=== PATIENT | male | born 1950 | race Caucasian/White ===

== ENCOUNTER 2016-11-30 16:23 | Outpatient (CLI) | payer MEDICARE | END 2016-11-30 16:24 | disposition short-term general hospital (02) | LOC: EMS 16:23 | PROVIDERS: ATTEND Surgery | DX: R13.10 Dysphagia, unspecified (principal); R47.9 Unspecified speech disturbances; R55 Syncope and collapse; R53.1 Weakness | CPT/HCPCS: A0425; A0427 ==

== ENCOUNTER 2019-05-14 13:00 | Outpatient (CLI) | payer MEDICARE | END 2019-05-14 13:01 | disposition short-term general hospital (02) | LOC: EMS 13:00 | PROVIDERS: ATTEND Surgery | DX: R55 Syncope and collapse (principal); R51 Headache; R29.810 Facial weakness | CPT/HCPCS: A0425; A0429 ==

== ENCOUNTER 2020-01-01 10:19 | Inpatient (IN) | payer MEDICARE, OTHER ==
[2020-01-01] MEDS ORDERED: MORPHINE 2 MG/ML CARPUJECT IVP STA ×2 (10:41→15:11)
[2020-01-01 10:45] LABS: BASOPHILS % (AUTO) 0.4 %; EOSINOPHILS % (AUTO) 0.1 %; HGB - HEMOGLOBIN 14.7 g/dL (14.0-18.0); LYMPHOCYTES # (AUTO) 0.6 10^3/uL (1.5-3.5); MEAN CORPUSCULAR HEMOGLOBIN 32.5 pg (27.0-31.0); MEAN CORPUSCULAR HGB CONC 33.9 g/dL (32.0-36.0); MEAN CORPUSCULAR VOLUME 95.6 fL (80.0-94.0); MEAN PLATELET VOLUME 10.1 fL (7.4-11.4); MONOCYTES # (AUTO) 0.3 10^3/uL (0.0-1.0); MONOCYTES % (AUTO) 3.4 %; NEUTROPHILS # (AUTO) 8.5 10^3/uL (1.5-6.6); NEUTROPHILS % (AUTO) 89.9 %; PLT - PLATELET COUNT 175 10^3/uL (130-450); RED BLOOD COUNT 4.53 10^6/uL (4.70-6.10); RED CELL DISTRIBUTION WIDTH 12.6 % (12.0-15.0); WHITE BLOOD COUNT 9.5 x10^3/uL (4.8-10.8)
[2020-01-01 10:50] LABS: GLUCOSE, URINE (UA) NEGATIVE (NEGATIVE); LEUKOCYTE ESTERASE, URINE NEGATIVE (NEGATIVE)
[2020-01-01 10:51] LABS: BILIRUBIN,URINE NEGATIVE (NEGATIVE); CLARITY,URINE CLEAR (CLEAR); ICTOTEST,URINE NEGATIVE
[2020-01-01 10:56] LABS: BACTERIA,URINE Few /HPF (None Seen); MUCUS,URINE Moderate Strands; RBC,URINE 0-5 /HPF (0-5); SQUAMOUS EPITHELIAL CELL,UR FEW Squamous (<= Few)
[2020-01-01 10:59] LABS: ALBUMIN 4.1 g/dL (3.2-5.5); ALBUMIN/GLOBULIN RATIO 1.2 (1.0-2.2); BILIRUBIN,TOTAL 1.9 mg/dL (0.2-1.0); CALCIUM 8.9 mg/dL (8.5-10.3); CREATININE 1.1 mg/dL (0.6-1.2); TOTAL PROTEIN 7.4 g/dL (6.7-8.2)
--- NOTE | 2020-01-01 11:01 | ED Physician Documentation ---
PD HPI ABD PAIN - Stated complaint Stated Complaint: LOWER ABD PX - Chief complaint Chief Complaint: Abd Pain - History obtained from History obtained from: Patient, Family - History of Present Illness Timing - onset: How many days ago (3) Timing - duration: Days (3) Timing - details: Gradual onset Pain level max: 8 Pain level now: 6 Quality: Cramping, Aching, Pain Location: LLQ Radiation: Other. No: Chest, , Lower back, Left flank, Left shoulder, Right flank, Right shoulder, Upper back Improved by: No: Vomiting, BM, Position Worsened by: Moving, Palpation. No: Eating Associated symptoms: No: Fever, Nausea, Vomiting, Hematemesis, Diarrhea, Constipation, Melena, Hematochezia, Dysuria - Additional information Additional information: 69-year-old male presents to the emergency department with left lower quadrant abdominal pain for the past 3 days. Gradually worsening. Nothing makes it better. Worse with movement and palpation. Was seen at the walk-in clinic this morning and sent here for further evaluation. The pain is nonradiating. No vomiting, occasional nausea. No constipation or diarrhea. Has never had similar symptoms. No history of abdominal surgeries in the past. Review of Systems Ten Systems: 10 systems reviewed and negative Constitutional: denies: Fever, Chills Ears: denies: Ear pain Nose: denies: Rhinorrhea / runny nose, Congestion Throat: denies: Sore throat Cardiac: denies: Chest pain / pressure, Palpitations Respiratory: denies: Dyspnea, Cough GI: reports: Nausea. denies: Diarrhea, Hematemesis, Bloody / black stool : denies: Dysuria PD PAST MEDICAL HISTORY - Past Medical History Past Medical History: Yes Endocrine/Autoimmune: HyPOthyroidism - Past Surgical History Past Surgical History: Yes Other past surgical history: Right eye surgery for glacoma Oct 22 2019 @ [place]. Bilateral eye surgery for cornea scratches 2014 & 2016. Left carotid endarterectomy @ [facility] Apr 2019 - Allergies Allergies/Adverse Reactions: Allergies Allergy/AdvReac Type Severity Reaction Status Date / Time Statins Allergy Unknown Uncoded 01/01/20 10:43 - Living Situation Living Situation: reports: With family Living Arrangement: reports: At home - Social History Does the pt have substance abuse?: No - Family History Family history: reports: Non contributory PD ED PE NORMAL - Vitals Vital signs reviewed: Yes - General General: Alert and oriented X 3, No acute distress, Well developed/nourished - HEENT HEENT: PERRL, Moist mucous membranes - Neck Neck: Supple, no meningeal sign - Cardiac Cardiac: RRR, Strong equal pulses - Respiratory Respiratory: No respiratory distress, Clear bilaterally - Abdomen Abdomen: Soft, Non distended, Other (Tender palpation suprapubic and left lower quadrant. Positive guarding, no rebound.) - Back Back: No CVA TTP, No spinal TTP - Derm Derm: Warm and dry - Extremities Extremities: No edema - Neuro Neuro: Alert and oriented X 3 - Psych Psych: Normal mood, Normal affect Results - Vitals Vitals: Vital Signs - 24 hr 01/01/20 01/01/20 01/01/20 10:28 10:46 12:30 Temperature 37.3 C Heart Rate 100 92 90 Respiratory 11 L 19 22 Rate Blood Pressure 154/78 H 157/77 H 127/73 O2 Saturation 96 93 95 01/01/20 14:00 Temperature Heart Rate 99 Respiratory 17 Rate Blood Pressure 125/76 O2 Saturation 96 Oxygen O2 Source Room air - Labs Labs: Laboratory Tests 01/01/20 01/01/20 01/01/20 10:27 10:37 10:37 WBC 9.5 RBC 4.53 L Hgb 14.7 Hct 43.3 MCV 95.6 H MCH 32.5 H MCHC 33.9 RDW 12.6 Plt Count 175 MPV 10.1 Neut # (Auto) 8.5 H Lymph # (Auto) 0.6 L Nash # (Auto) 0.3 Eos # (Auto) 0.0 Baso # (Auto) 0.0 Absolute Nucleated RBC 0.00 Nucleated RBC % 0.0 Sodium 134 L Potassium 3.6 Chloride 98 L Carbon Dioxide 23 Anion Gap 13.0 BUN 15 Creatinine 1.1 Estimated GFR (MDRD) 66 L Glucose 129 H Calcium 8.9 Total Bilirubin 1.9 H AST 27 ALT 28 Alkaline Phosphatase 58 Total Protein 7.4 Albumin 4.1 Globulin 3.3 Albumin/Globulin Ratio 1.2 Lipase 27 Urine Color ORANGE Urine Clarity CLEAR Urine pH Ur Specific [place] Urine Protein Urine Glucose (UA) NEGATIVE Urine Ketones Urine Occult Blood Urine Nitrite Urine Bilirubin NEGATIVE Urine Urobilinogen Ur Leukocyte Esterase NEGATIVE Urine RBC 0-5 Urine WBC 4-5 Ur Squamous Epith Cells FEW Squamous Urine Bacteria Few Urine Mucus Moderate Strands Ur Microscopic Review INDICATED Urine Culture Comments NOT INDICATED - Rads (name of study) CT abd/pelvis Radiology: Prelim report reviewed, EMP read contemporaneously PD MEDICAL DECISION MAKING - ED course Complexity details: reviewed results, re-evaluated patient, considered differential, d/w patient, d/w family, d/w operational risk consultant ED course: 69-year-old male with a small bowel perforation. No history of inflammatory bowel disease. States had a normal colonoscopy 1 year ago in [place]. Given IV antibiotics, Zosyn and Flagyl. Discussed the case with Dr. Bailey, general surgery who will admit the patient for further care. Patient is well-appearing, nontoxic. Afebrile. Does not appear septic. This document was made in part using voice recognition software. While efforts are made to proofread this document, sound alike and grammatical errors may occur. Findings suggestive of small bowel perforation with suspected underlying inflammatory bowel disorder such as Crohn's disease. Free air in the left central mesentery with adjacent inflammatory changes tracking to a short segment of edematous and thickened small bowel. Several scattered segments of bowel which demonstrate wall thickening in close approximation of bowel loops with adjacent inflammatory changes, suggesting either tethering or perhaps fistula formation. Departure - Departure Disposition: 66 [facility] DC/Xfer Clinical Impression: Perforated small intestine Condition: Stable
[2020-01-01] MEDS ORDERED: IOVERSOL 320 100 ML VIAL IVP ONE ×2 (11:17→17:04)
--- NOTE | 2020-01-01 12:04 | CT Report ---
PROCEDURE: Abdomen/Pelvis W INDICATIONS: LLQ abd pain CONTRAST: IV CONTRAST: Optiray 320 ml: 100 PO CONTRAST: *NO PO CONTRAST TECHNIQUE: After the administration of intravenous contrast, 5 mm thick sections acquired from the diaphragms to the symphysis. 5 mm thick coronal and sagittal reformats were acquired. For radiation dose reducti on, the following was used: automated exposure control, adjustment of mA and/or kV according to kishor ent size. COMPARISON: None. FINDINGS: Image quality: Excellent. ABDOMEN: Lung bases: There is mild bibasilar posterior dependent atelectasis. No pleural or pericardial effusi on. Solid organs: Liver and spleen are normal in size and enhancement. Gallbladder there is normal. Bi liary system is non dilated. Pancreas enhances normally. No adrenal nodules. Kidneys demonstrate n ormal size and enhancement, without hydronephrosis. Peritoneum and bowel: These images demonstrate free air in the left central mesentery (series 3 imag es [id number]) which appears to emanate from a loop of small bowel immediately anterior to the abdominal a brian (series 3 image 62). There are inflammatory changes involving the regional mesentery, specifical ly fat stranding with engorged vasa recta. There are scattered areas of small bowel wall thickening w ith adjacent inflammatory change and free fluid. Numerous longitudinally distended loops of small bow el appear closely approximated with suggestion of tethering or perhaps tiny fistulae. Inflammatory ch anges are quite pronounced at the terminal ileum and adjacent cecum with cecal enlargement, fluid dis tention, and mucosal hyperenhancement. Nodes and vessels: Aortic atherosclerosis without aneurysm. Atherosclerotic calcifications extend int o the major visceral branches and into the iliac arteries. IVC is unremarkable. No peripheral enlarge d retroperitoneal lymph node Miscellaneous: No ventral hernia. PELVIS: Genitourinary: Free fluid in the pelvis related to the bowel pathology. The prostate is unremarkable. The urinary bladder is within normal limits. Miscellaneous: No threshold enlarged pelvic or inguinal lymph nodes. No inguinal hernia. Bones: No suspicious bony lesions. No vertebral body compression fractures. IMPRESSION: Findings suggestive of small bowel perforation with suspected underlying inflammatory bowel disorder such as Crohn's disease. Free air in the left central mesentery with adjacent inflammatory changes tracking to a short segment of edematous and thickened small bowel. Several scattered segments of bowel which demonstrate wall thickening in close approximation of bowel loops with adjacent inflammatory changes, suggesting either tethering or perhaps fistula formation. Reviewed by: Gaston Meek MD on 01/01/2020 12:01 PM PDT Approved by: Gaston Meek MD on 01/01/2020 12:01 PM PDT Station ID: [id number]
[2020-01-01] MEDS ORDERED: PIPERACILLIN/TAZOBACTAM 3.375 GM in SODIUM CHLORIDE 0.9% MINIBAG 100 ML IV STA (12:12)
[2020-01-01] MEDS ORDERED: SODIUM CHLORIDE 0.9% 1,000 ML IV STA (12:12)
[2020-01-01] MEDS ORDERED: metroNIDAZOLE 500 MG/100 ML 500 MG/100 ML BAG IV ONE (12:58)
--- NOTE | 2020-01-01 15:50 | HISTORY & PHYSICAL EXAMINATION ---
Chief Complaint - Chief Complaint Chief Complaint: Abdominal pain History of Present Illness - Admitted From Admitted From:: Home - History Obtained From Records Reviewed: EMR History obtained from: Patient Exam Limitations: None - History of Present Illness HPI Comment/Other: 69-year-old male presents with acute onset abdominal pain. No prior episodes. No prior surgical history. Colonoscopy within the last year grossly within normal limits. Interestingly last lower endoscopy performed in [place]. No other recent travel or sick contacts. No historic diarrheal illness or inconsistent bowel habits. No bloody diarrhea by report. Developed acute onset abdominal pain with associated nausea vomiting and febrile illness. Of note the patient's daughter was recently diagnosed with ulcerative colitis, started on Remicade and currently on Entyvio infusions. Concerning imaging findings per emergency physician, requesting surgical input and admission. History - Past Medical History Cardiovascular: reports: Hypertension Respiratory: reports: Sleep apnea Neuro: reports: None Endocrine/Autoimmune: reports: HyPOthyroidism GI: reports: Colon polyps : reports: None HEENT: reports: Chronic vision loss, Chronic hearing loss Psych: reports: None Musculoskeletal: reports: Gout Derm: reports: None MRSA Hx?: No - Past Surgical History HEENT: reports: Other Other past surgical history: Right eye surgery for glacoma Oct 22 2019 @ [facility]. Bilateral eye surgery for cornea scratches 2014 & 2015. Left carotid endarterectomy @ [facility] Apr 2019 - Family & Social History Living arrangement: At home Living Situation: With family - POLST Patient has POLST: Yes Meds/Allgy - Home Medications Home Medications: Ambulatory Orders Medication Instructions Recorded Confirmed Brimonidine 0.2% Ophth Drops 1 drops EACHEYE BID 01/01/20 01/02/20 [Alphagan P 0.2% Ophth Drops] Dorzolamide HCl/Timolol Maleat 1 drops EACHEYE BID 01/01/20 01/02/20 [Dorzolamide-Timolol Eye Drops] Latanoprost 0.005% Ophth Drops 1 drops EACHEYE QPM 01/01/20 01/02/20 [Xalatan Ophth Drops] Aspirin Chewable [St Lj 81 mg PO DAILY 01/02/20 01/02/20 Aspirin] - Allergies Allergies/Adverse Reactions: Allergies Allergy/AdvReac Type Severity Reaction Status Date / Time Statins Allergy Unknown Uncoded 01/01/20 10:43 Review of Systems - Constitutional Constitutional: reports: Fatigue, Fever - Gastrointestinal Gastrointestinal: reports: Abdominal pain, Abdominal distention, Diarrhea Exam - Vital Signs Reviewed Vital Signs: Yes Vital Signs: Vital Signs x48h Temp Pulse Resp BP Pulse Ox 01/01/20 14:30 94 20 136/74 H 96 01/01/20 14:00 99 17 125/76 96 01/01/20 12:30 90 22 127/73 95 01/01/20 10:46 92 19 157/77 H 93 01/01/20 10:28 37.3 C 100 11 L 154/78 H 96 - Physical Exam General Appearance: positive: No acute distress Eyes Bilateral: positive: Normal inspection, PERRL, EOMI ENT: positive: ENT inspection nml Neck: positive: Nml inspection Respiratory: positive: Chest non-tender, No respiratory distress, Breath sounds nml. negative: Wheezes, Rales, Rhonchi Cardiovascular: positive: Tachycardia Abdomen: positive: Tenderness (Abdomen soft, distended, tender to palpation suprapubic, with localized rebound and guarding, no generalized peritoneal signs. No surgical scars no inguinal palpable hernias. Patient with umbilical hernia.). negative: Guarding, Rebound Skin: positive: Color nml Extremities: positive: Non-tender, Full ROM, Nml appearance Neurologic/Psychiatric: positive: Oriented x3, CN's nml (2-12), Motor nml, Sensation nml, Mood/affect nml Sepsis Event Note (H) - Evaluation Current Stage of Sepsis: Sepsis Conclusion/Plan - Problem List (2) Perforated small intestine Conclusion/Plan: 69-year-old male with likely contained perforation from longstanding enteritis potentially undiagnosed inflammatory bowel disease. Somewhat surprising however not completely inconsistent given the bimodal distribution of Crohn's as far as its incidence. He is stable from an abdominal and hemodynamic standpoint. Thus we will attempt decompression with nasogastric tube, bowel rest, proceed with fluid resusc itation and broad-spectrum antibiotics. He is aware of the likelihood of necessary diagnostic laparoscopy versus laparotomy. Given the acute presentation and the unknown etiology, proceeding with any anastomosis in this circumstance would carry with it significant risk especially in the setting of Crohn's and need for long-term bowel preservation. Thus he was counseled of the likely indication for laparotomy, bowel resection, possible anastomosis however in either case of anastomosis or resection without he would require loop ileostomy versus end ileostomy. Wound might necessarily be left open secondary to risk of infectious complications as well as wide local drainage. Risk and benefits discussed questions answered and patient agrees with plan. Moreover at the time of operative intervention we will likely consider placement of central line and commencement of parenteral nutrition as well. - Lab Results Fish Bones: 01/01/20 10:37 01/01/20 10:37 - Diagnostic Imaging Results Diagnostic Imaging Results Comments: Impression CT abdomen pelvis: 1. Findings suggestive of small bowel perforation with suspected underlying inflammatory bowel disease/disorder such as Crohn's disease. 2. Free air in the central mesentery with adjacent inflammatory changes tracking to a short segment of edematous and thickened small bowel. 3. Several scattered segments of bowel which demonstrate wall thickening close approximation of bowel loops with adjacent inflammatory changes suggesting either tethering or perhaps fistula formation.
[2020-01-01] MEDS ORDERED: HYDROmorphone 0.5 MG/0.5 ML SYRINGE IVP PRN (15:51)
[2020-01-01] MEDS ORDERED: ONDANSETRON 4 MG/2 ML VIAL IVP PRN (15:51)
[2020-01-01] MEDS ORDERED: ACETAMINOPHEN 1,000 MG/100 ML 100 ML IV PRN (15:51)
[2020-01-01] MEDS: PANTOPRAZOLE 40 MG VIAL IVP SCH (16:52)
[2020-01-01] MEDS: SODIUM CHLORIDE FLUSH 0.9% 10 ML SYRINGE IVP SCH (16:52)
[2020-01-01] MEDS: D5NS W/20 MEQ KCL 1,000 ML IV SCH (16:52)
[2020-01-01] MEDS: methocarbamoL 500 MG TABLET PO SCH (17:18)
[2020-01-01] MEDS: METOCLOPRAMIDE 10 MG/2 ML VIAL IVP SCH (17:18)
--- NOTE | 2020-01-01 18:34 | XRAY Report ---
PROCEDURE: Chest for Line Placement INDICATIONS: POST NGT INSERTION TECHNIQUE: One view of the chest was acquired. COMPARISON: None FINDINGS: Surgical changes and devices: NG tube tip is in the lumen below the left hemidiaphragm. Lungs and pleura: No pleural effusions or pneumothorax. Lungs are clear. Mediastinum: Mediastinal contours appear normal. Heart size is normal. Bones and chest wall: No suspicious bony lesions. Overlying soft tissues appear unremarkable. IMPRESSION: NG tube tip is in the region of stomach lumen below the left hemidiaphragm. No focal infiltrate, pleu ral effusion or pneumothorax. Reviewed by: Jamison Jauregui MD on 01/01/2020 6:32 PM PDT Approved by: Jamison Jauregui MD on 01/01/2020 6:32 PM PDT Station ID: [id number]
[2020-01-01] MEDS: BRIMONIDINE 0.2% OPHTH DROPS 5 ML EACHEYE SCH (21:56)
[2020-01-01] MEDS: DORZOLAMIDE/TIMOLOL OPHTH DROPS EACHEYE SCH (21:56)
[2020-01-02] MEDS: METOCLOPRAMIDE 10 MG/2 ML VIAL IVP SCH ×5 (00:11→23:50)
[2020-01-02] MEDS: methocarbamoL 500 MG TABLET PO SCH ×5 (00:11→23:53)
[2020-01-02] MEDS: D5NS W/20 MEQ KCL 1,000 ML IV SCH ×3 (00:12→18:58)
[2020-01-02] MEDS: SODIUM CHLORIDE FLUSH 0.9% 10 ML SYRINGE IVP SCH ×3 (00:12→19:11)
[2020-01-02] MEDS: PANTOPRAZOLE 40 MG VIAL IVP SCH (06:06)
[2020-01-02] MEDS: DORZOLAMIDE/TIMOLOL OPHTH DROPS EACHEYE SCH ×2 (08:20→21:03)
[2020-01-02] MEDS: BRIMONIDINE 0.2% OPHTH DROPS 5 ML EACHEYE SCH ×2 (08:20→21:03)
[2020-01-02] MEDS: ENOXAPARIN 40 MG/0.4 ML SYRINGE SUBQ SCH (08:21)
--- NOTE | 2020-01-02 09:19 | CONSULTATION NOTE ---
Referring Provider Name of Referring Provider:: Dr. Bailey Consult Date: 01/02/20 Chief Complaint - Chief Complaint Chief Complaint: abdominal pain History of Present Illness - History Obtained From Records Reviewed: [facility] History obtained from: Pt Exam Limitations: no - History of Present Illness HPI Comment/Other: This is a 69-years old male With a past medical history significant for hypot hyroidism, glaucoma, with Left carotid endarterectomy at [facility] Apr 2019. Patient was admitted for abdominal pain, CAT scan showed patient had small bowel perforation with free air in the left central mesentery. We are asking for pre-operation assessment for patient. Patient denies any cardiac history, he did not not see any ride operator before. He denies chest pain, palpitation,Syncope. He also denies hx of gastric surgery. History - Past Medical History Cardiovascular: reports: Hypertension Respiratory: reports: Sleep apnea Neuro: reports: None Endocrine/Autoimmune: reports: HyPOthyroidism GI: reports: Colon polyps : reports: None HEENT: reports: Chronic vision loss, Chronic hearing loss Psych: reports: None Musculoskeletal: reports: Gout Derm: reports: None MRSA Hx?: No - Past Surgical History HEENT: reports: Other Other past surgical history: Right eye surgery for glacoma Oct 22 2019 @ [place] [facility]. Bilateral eye surgery for cornea scratches 2014 & 2015. Left carotid endarterectomy @ [facility] Apr 2019 - Family & Social History Living arrangement: At home Living Situation: With family - POLST Patient has POLST: Yes Meds/Allgy - Home Medications Home Medications: Ambulatory Orders Medication Instructions Recorded Confirmed Brimonidine 0.2% Ophth Drops 1 drops EACHEYE BID 01/01/20 [Alphagan P 0.2% Ophth Drops] Dorzolamide HCl/Timolol Maleat 1 drops EACHEYE BID 01/01/20 [Dorzolamide-Timolol Eye Drops] Latanoprost 0.005% Ophth Drops 1 drops EACHEYE QPM 01/01/20 [Xalatan Ophth Drops] - Allergies Allergies/Adverse Reactions: Allergies Allergy/AdvReac Type Severity Reaction Status Date / Time Statins Allergy Unknown Uncoded 01/01/20 10:43 Review of Systems - Constitutional Constitutional: denies: Fatigue, Fever - Eyes Eyes: denies: Vision loss - Ears, Nose & Throat Ears, Nose & Throat: denies: Ear pain, Nosebleeds - Cardiovascular Cariovascular: denies: Irregular heart rate, Palpitations, Chest pain, Edema, Lightheadedness, Syncope, Exertional dyspnea, Decr. exercise tolerance - Respiratory Respiratory: denies: Cough, Wheezing, Hemoptysis, Orthopnea, SOB at rest, SOB with exertion - Gastrointestinal Gastrointestinal: reports: Abdominal pain, Diarrhea. denies: Constipation, Nausea, Vomiting - Genitourinary Genitourinary: denies: Dysuria - Musculoskeletal Musculoskeletal: denies: Muscle pain - Neurological Neurological: denies: General weakness, Focal weakness, Numbness, Abnormal gait, Slurred speech Exam - Vital Signs Vital Signs: Vital Signs x48h Temp Pulse Resp BP Pulse Ox 01/02/20 08:28 36.6 C 94 20 150/77 H 96 - Physical Exam General Appearance: positive: No acute distress, Alert. negative: Lethargic Eyes Bilateral: positive: Normal inspection, PERRL ENT: positive: ENT inspection nml, No signs of dehydration. negative: Purulent nasal drainage Neck: positive: Nml inspection, Trachea midline. negative: Thyromegaly, Tracheal deviation Respiratory: positive: Chest non-tender, No respiratory distress, Breath sounds nml. negative: Wheezes, Rales Cardiovascular: positive: Regular rate & rhythm, No murmur, No gallop, Systolic murmur, Diastolic murmur. negative: Irregularly irregular, Tachycardia, Bradycardia Peripheral Pulses: positive: 2+ Abdomen: positive: Non-tender, Nml bowel sounds, No distention. negative: Guarding, Rebound Back: positive: Nml inspection Skin: positive: Color nml, No rash, Warm. negative: Cyanosis, Diaphoresis, Pallor Extremities: positive: Non-tender, Full ROM, Nml appearance. negative: Calf tenderness Neurologic/Psychiatric: positive: Oriented x3, Motor nml, Sensation nml, Mood/affect nml. negative: Weakness, Sensory loss, Facial droop, Slurred/abnml speech, Depressed mood/affect Conclusion/Plan - Diagnosis Diagnosis: Pre-operation examination: Patient denies any cardiac medical history. pt did have TIA on 04/2019 and lead to Pt had left carotid endarterectomy on 04/2019 In [facility]. He has no previous history of vascular disease including no history of heart disease, PVD, previous stroke or UT or hypertension. EKG review sinus rhythm. Patient denies chest pain, palpitation,Or syncope. Revised cardiac risk index(Remigio criteria) 0.9% low risk, [place] perioperative Risk for UT or cardiac arrest 0.0%. pt is optimized for surgery. - Lab Results Fish Bones: 01/01/20 10:37 01/01/20 10:37
--- NOTE | 2020-01-02 10:38 | ANESTHESIA ---
Pre-Anesthesia VS, & Labs - Diagnosis Diagnosis Pre-operation examination: Patient denies any cardiac medical history. Pt had left carotid endarterectomy on 04/2019 In [facility]. He has no previous history of vascular disease including no history of heart disease, PVD, previous stroke or DE or hypertension. perforated bowel - Procedure diagnostic laparoscopy, possible bowel resection Vital Signs: Temp Pulse Resp BP Pulse Ox 36.6 C 94 20 150/77 H 96 01/02/20 08:28 01/02/20 08:28 01/02/20 08:28 01/02/20 08:28 01/02/20 08:28 Height: 6 ft Weight (kg): 93.5 kg Body Mass Index: 27.9 BMI Classification: Overweight - NPO >8 hours - Lab Results Current Lab Results: Laboratory Tests 01/01/20 10:37: Sodium 134 L, Potassium 3.6, Chloride 98 L, Carbon Dioxide 23, Anion Gap 13.0, BUN 15, Creatinine 1.1, Estimated GFR (MDRD) 66 L, Glucose 129 H , Calcium 8.9, Total Bilirubin 1.9 H, AST 27, ALT 28, Alkaline Phosphatase 58, Total Protein 7.4, Albumin 4.1, Globulin 3.3, Albumin/Globulin Ratio 1.2, Lipase 27 01/01/20 10:37: WBC 9.5, RBC 4.53 L, Hgb 14.7, Hct 43.3, MCV 95.6 H, MCH 32.5 H, MCHC 33.9, RDW 12.6, Plt Count 175, MPV 10.1, Neut # (Auto) 8.5 H, Lymph # (Auto) 0.6 L, [place] # (Auto) 0.3, Eos # (Auto) 0.0, Baso # (Auto) 0.0, Absolute Nucleated RBC 0.00, Nucleated RBC % 0.0 Lab results reviewed: Yes Fish Bones: 01/01/20 10:37 01/01/20 10:37 Home Medications and Allergies Home Medications: Ambulatory Orders Brimonidine 0.2% Ophth Drops [Alphagan P 0.2% Ophth Drops] 1 drops EACHEYE BID 01/01/20 Dorzolamide HCl/Timolol Maleat [Dorzolamide-Timolol Eye Drops] 1 drops EACHEYE BID 01/01/20 Latanoprost 0.005% Ophth Drops [Xalatan Ophth Drops] 1 drops EACHEYE QPM 01/01/20 Active Medications Brimonidine Tartrate (Alphagan P 0.2% Ophth Drops) 1 drops EACHEYE BID [facility] Last Admin: 01/02/20 08:20 Dose: 1 drops Documented by: Dorzolamide/Timolol (Cosopt) 1 drops EACHEYE BID [facility] Last Admin: 01/02/20 08:20 Dose: 1 drops Documented by: Enoxaparin Sodium (Lovenox) 40 mg SUBQ DAILY [facility] Last Admin: 01/02/20 08:21 Dose: 40 mg Documented by: Hydromorphone HCl (Dilaudid Inj Syringe) 0.5 mg IVP Q2H PRN PRN Reason: Pain 8 to 10 Potassium Chloride/Dextrose/Sod Cl () 1,000 mls @ 125 mls/hr IV .Q8H [facility] Last Admin: 01/02/20 08:19 Dose: 125 mls/hr Documented by: Acetaminophen (Ofirmev) 100 mls @ 400 mls/hr IV Q6HR PRN PRN Reason: PAIN Last Infusion: 01/01/20 22:03 Dose: Infused Documented by: Latanoprost (Xalatan Ophth Drops) 1 drops EACHEYE QPM [facility] Methocarbamol (Robaxin) 500 mg PO Q6HR [facility] Last Admin: 01/02/20 06:06 Dose: 500 mg Documented by: Metoclopramide HCl (Reglan Inj) 10 mg IVP Q6HR [facility] Last Admin: 01/02/20 06:06 Dose: 10 mg Documented by: Ondansetron HCl (Zofran Inj) 4 mg IVP Q6HR PRN PRN Reason: Nausea / Vomiting Pantoprazole Sodium (Protonix) 40 mg IVP QDAC [facility] Last Admin: 01/02/20 06:06 Dose: 40 mg Documented by: Sodium Chloride (Normal Saline Flush 0.9%) 10 ml IVP 0100,0900,1700 [facility] Last Admin: 01/02/20 00:12 Dose: 10 ml Documented by: Sodium Chloride (Normal Saline Flush 0.9%) 10 ml IVP PRN PRN PRN Reason: NEEDED PER PROVIDER ORDERS Brimonidine 0.2% Ophth Drops [Alphagan P 0.2% Ophth Drops] 1 drops EACHEYE BID 01/01/20 Dorzolamide HCl/Timolol Maleat [Dorzolamide-Timolol Eye Drops] 1 drops EACHEYE BID 01/01/20 Latanoprost 0.005% Ophth Drops [Xalatan Ophth Drops] 1 drops EACHEYE QPM 01/01/20 Allergies/Adverse Reactions: Allergies Allergy/AdvReac Type Severity Reaction Status Date / Time Statins Allergy Unknown Uncoded 01/01/20 10:43 Anes History & Medical History - Anesthetic History Anesthesia Complications: reports: No previous complications Family history of Anesthesia Complications: Denies Family history of Malignant Hyperthermia: Denies - Medical History Cardiovascular: reports: Hypertension Pulmonary: reports: Sleep apnea Gastrointestinal: reports: Colon polyps Urinary: reports: None Neuro: reports: None Musculoskeletal: reports: Gout Endocrine/Autoimmune: reports: HyPOthyroidism Blood Disorders: reports: None Skin: reports: None Smoking Status: Never smoker Other Past Medical History: glaucoma with multiple surgeries - Surgical History Eyes Ears Nose Throat (EENT): Other Cardiothoracic: Vascular surgery (Apr 2019 [facility]) Other Past Surgical History: Right eye surgery for glacoma Oct 22 2019 @ [place]. Bilateral eye surgery for cornea scratches 2014 & 2015. Left carotid endarterectomy @ [facility] Apr 2019 Exam General: Alert, Oriented x3, Cooperative, No acute distress Dental: WNL Mouth Openin Fingerbreadth Mallampati classification: II Respiratory: Lungs clear, Normal breath sounds, No respiratory distress, No accessory muscle use Cardiovascular: Regular rate, Normal S1, Normal S2, No murmurs Plan Anesthesia Type: General, Transverse Abdominis Plane (TAP) Block Regional Block: Per Surgeon's request for Post Op pain control Consent for Procedure(s) Verified and Reviewed: Yes Code Status: Attempt Resuscitation ASA classification: 3-Severe systemic disease Is this case an emergency?: Yes
[2020-01-02] MEDS ORDERED: LIDOCAINE 1%-EPI 1:100000 20 ML MDV ONE (11:31)
[2020-01-02] MEDS ORDERED: LIDOCAINE 1% 50 ML MDV ONE (11:31)
[2020-01-02] MEDS ORDERED: BUPIVACAINE 0.25%-EPI 1:200000 PF 30 ML VIAL ONE ×2 (11:31→13:25)
--- NOTE | 2020-01-02 12:08 | PHARMACY PROGRESS NOTE ---
- Best Possible Medication History Admit Date and Time: 01/01/20 1551 Processed by: Pharmacy Patient Interview: Completed Secondary Source(s): Prescription bottles As the person ultimately responsible for medication therapy, providers are able to order a medication from an existing home medication list in [facility] via the "Reconcile Routine" prior to Confirmation of that medication by residential support specialist. Such practice is discouraged except when the physician, in their clinical judgment, deems that a medical need exists for a medication without regard to previous use.
[2020-01-02] MEDS ORDERED: GLYCOPYRROLATE 1 MG/5 ML VIAL IVP ONE (13:44)
[2020-01-02] MEDS ORDERED: ROCURONIUM 50 MG/5 ML VIAL IVP ONE (13:44)
[2020-01-02] MEDS ORDERED: NEOSTIGMINE 1 MG/1 ML 10 ML MDV IVP ONE (13:44)
[2020-01-02] MEDS ORDERED: LIDOCAINE-MPF 2% 5 ML VIAL IM ONE (13:44)
[2020-01-02] MEDS ORDERED: ONDANSETRON 4 MG/2 ML VIAL IVP ONE (13:44)
[2020-01-02] MEDS ORDERED: PROPOFOL 200 MG/20 ML VIAL IVP ONE (13:44)
[2020-01-02] MEDS ORDERED: ePHEDrine 50 MG/ML VIAL IVP ONE (13:44)
[2020-01-02] MEDS ORDERED: DEXMEDETOMIDINE 200 MCG/2 ML VIAL IV ONE (13:44)
[2020-01-02] MEDS ORDERED: SUCCINYLCHOLINE 200 MG/10 ML VIAL IVP ONE (13:44)
[2020-01-02] MEDS ORDERED: KETOROLAC 30 MG/ML VIAL IVP ONE (13:44)
[2020-01-02] MEDS ORDERED: SODIUM CHLORIDE 0.9% 50 ML IV ONE (13:44)
[2020-01-02] MEDS ORDERED: KETAMINE 500 MG/10 ML VIAL IVP ONE (13:44)
[2020-01-02] MEDS ORDERED: DEXAMETHASONE 4 MG/ML VIAL IVP ONE (13:44)
[2020-01-02] MEDS ORDERED: MAGNESIUM SULFATE 1 GM/2 ML VIAL IV ONE (13:44)
[2020-01-02] MEDS ORDERED: ACETAMINOPHEN 1,000 MG/100 ML 100 ML IV ONE (14:10)
[2020-01-02] MEDS ORDERED: BUPIVACAINE 0.25%-EPI 1:200000 PF 30 ML VIAL SUBQ ONE (14:14)
[2020-01-02] MEDS ORDERED: fentaNYL 100 MCG/2 ML VIAL IVP PRN (14:44)
[2020-01-02] MEDS ORDERED: MORPHINE 2 MG/ML CARPUJECT IVP PRN (14:44)
[2020-01-02] MEDS ORDERED: ONDANSETRON 4 MG/2 ML VIAL IVP PRN ×2 (14:44→17:47)
[2020-01-02] MEDS ORDERED: ATROPINE ABBOJECT 1 MG/10 ML SYRINGE IVP PRN (14:44)
[2020-01-02] MEDS ORDERED: HYDROmorphone 0.5 MG/0.5 ML SYRINGE IVP PRN (14:44)
[2020-01-02] MEDS ORDERED: NALOXONE 0.4 MG/ML VIAL IVP PRN (14:44)
[2020-01-02] MEDS ORDERED: METOCLOPRAMIDE 10 MG/2 ML VIAL IVP PRN (14:44)
[2020-01-02] MEDS ORDERED: ePHEDrine 50 MG/ML VIAL IVP PRN (14:44)
[2020-01-02] MEDS ORDERED: LACTATED RINGERS 1,000 ML IV SCH (15:00)
[2020-01-02] MEDS ORDERED: LACTATED RINGERS 1,000 ML IV ONE (17:15)
[2020-01-02] MEDS ORDERED: HYDROmorphone PCA 20MG/100ML IV PRN (17:51)
--- NOTE | 2020-01-02 17:59 | OPERATIVE REPORT ---
Operative Report - General Admit Date: 01/01/20 Procedure Date: 01/02/20 Planned Procedure: 1. Diagnostic laparoscopy 2. Possible exploratory laparotomy 3. Possible bowel resection 4. Possible ileostomy Pre-Op Diagnosis: Pneumoperitoneum, abdominal pain, localized peritonitis. Procedure Performed: 1. Diagnostic laparoscopy 2. Exploratory laparotomy, mini 3. Laparoscopic adhesiolysis 4. Evacuation and takedown of abdominal abscess, largest 5. Right colectomy with a [id number] functional end-to-end anastomosis antiperistaltic 6. Left colectomy with end-to-end double stapled anastomosis, colotomies closed by hand in 2 layers 7. Abdominal washout, extensive 8. Loop ileostomy 9. Wound VAC placement 10. Umbilical hernia repair Post Op Diagnosis: Same, enteritis, abscess/phlegmon; colitis with mesenteric panniculitis - Procedure Note Primary Surgeon: Leo Secondary Surgeon: Marcelle Anesthesia Provider: Tariq Lee Anesthesia Technique: General ET tube, Local, Other (TAP Block per Anesthesia) Pathology: 1. Right colon to include terminal ileum, cecum, appendix, and portion of a sending colon 2. Left colon to include descending colon and sigmoid colon with portion of epiploic fat Estimated Blood Loss (mL): 50 Drain/Tube Type: Yefri drain (1. Left lower quadrant Yefri drain in the pelvis 2. Left upper quadrant Yefri drain in the right paracolic gutter) Indications: 1. Abdominal pain with pneumoperitoneum 2. CT scan concerning for enteritis and and fistula 3. Imaging worrisome for complicated inflammatory bowel disease 4. SIRS with concerns for abdominal source of sepsis Findings: 1. Large abscess cavity involving small bowel mesentery portions of cecum as well as descending and sigmoid colon mesentery and associated epiploic fat 2. Dense mesenteric panniculitis throughout to include the small bowel mesentery, the sigmoid mesocolon, with extensive epiploic appendagitis 3. Necrotic appearing appendix with fecalith 4. Significantly dilated cecum with associated cecitis and a sending colitis extensive fibrinous exudate. 5. Small bowel terminal ileitis/enteritis; run for its entirety the small bowel approximately was without any creeping fat or other concerning features no obvious fistulous openings 6. Dense inflammatory changes at the level of the sigmoid colon with notable mesenteric panniculitis 7. Viable anastomoses to include a enterocolostomy site side functional end-to-end antiperistaltic stapled, and double stapled colocolostomy 8. No evidence of diverticulosis or diverticulitis or diverticular perforation 9. Viable loop ileostomy 20 to 25 cm from the terminal ileal ascending enterocolostomy 10. Umbilical hernia incorporated into final fascial closure 11. Skin left open secondary to purulent peritonitis Complications: NONE - Other Other Information/Narrative: Final dictated operative report pending.
--- NOTE | 2020-01-02 18:23 | ANESTHESIA POST OP EVALUATION ---
Anesthesia Post Eval - Post Anesthesia Eval Vitals: Last Vital Signs Temp 36.1 C L 01/02/20 18:05 Pulse 79 01/02/20 18:15 Resp 13 01/02/20 18:15 BP 124/71 01/02/20 18:15 Pulse Ox 97 01/02/20 18:15 CV Function Including HR & BP: positive: Stable Pain Control: positive: Satisfactory Nausea & Vomiting: positive: Negative Mental Status: positive: Baseline Respiratory Status: Airway Patent Hydration Status: Satisfactory Anesthesia Complications: positive: None
[2020-01-02] MEDS ORDERED: HYDROmorphone PCA 20MG/100ML 100 ML IV ONE (18:24)
--- NOTE | 2020-01-02 18:38 | PHARMACY PROGRESS NOTE ---
- Therapy Status Vancomycin regimen day #: 1 (2.5 GM LOAD, THEN 1.25G Q12H MAINTENANCE) Therapy status: Awaiting steady state Basis for treatment: Empirical Treatment indication: SEPSIS Trough goal: 15-20 Concurrent antibiotics: ZOSYN - BRANDT Risk Risk level for Acute Kidney Injury: High Acute Kidney Injury risk factors: Piperacillin/Tozobactam, Goal trough >15, Admission to ICU, Sepsis - Monitoring and Recommendation Clinical response to treatment: I&O Previous 24 hours 12/31/19 01/01/20 01/02/20 23:59 23:59 23:59 Intake Total 1310 1966.667 Output Total 400 100 Balance 910 1866.667 Lab Results 01/01/20 10:37 BUN 15 Creatinine 1.1 Estimated GFR (MDRD) 66 L Monitoring plan: Daily serum creatinine, Draw trough early, Suggest ongoing fluid replacement Next trough due prior to maintenance dose #: 5 (UNLESS KIDNEY FUNCTION DECLINE PROMPTS EARLIER DRAW) Next trough due (date/time): 01/05/20 @ 0730 Areas for additional monitoring: IV to PO when appropriate, Therapy de- escalation based on culture results, Acute Kidney Injury Pharmacy recommendation: Continue current regime
[2020-01-02] MEDS: PIPERACILLIN/TAZOBACTAM 3.375 GM in SODIUM CHLORIDE 0.9% MINIBAG 100 ML IV SCH ×2 (19:09→23:50)
[2020-01-02] MEDS: KETOROLAC 30 MG/ML VIAL IVP SCH ×2 (19:10→23:50)
[2020-01-02] MEDS ORDERED: VANCOMYCIN INJ 2 GM, VANCOMYCIN INJ 500 MG in SODIUM CHLORIDE 0.9% 500 ML IV SCH (20:00)
[2020-01-02] MEDS ORDERED: LATANOPROST 0.005% OPHTH DROPS EACHEYE SCH (21:00)
[2020-01-02] MEDS ORDERED: DORZOLAMIDE/TIMOLOL OPHTH DROPS EACHEYE SCH (21:00)
[2020-01-02] MEDS ORDERED: BRIMONIDINE 0.2% OPHTH DROPS 5 ML EACHEYE SCH (21:00)
[2020-01-02] MEDS: polyethylene glycoL 3350 17 GM PACKET PO SCH (21:05)
[2020-01-02] MEDS: DOCUSATE SODIUM 100 MG CAPSULE PO SCH (21:05)
[2020-01-02] MEDS: LATANOPROST 0.005% OPHTH DROPS EACHEYE SCH (21:08)
[2020-01-03] MEDS: SODIUM CHLORIDE FLUSH 0.9% 10 ML SYRINGE IVP SCH ×4 (02:53→23:36)
[2020-01-03 05:22] LABS: BASOPHILS % (AUTO) 0.3 %; EOSINOPHILS # (AUTO) 0.1 10^3/uL (0.0-0.7); EOSINOPHILS % (AUTO) 1.2 %; HGB - HEMOGLOBIN 12.2 g/dL (14.0-18.0); LYMPHOCYTES # (AUTO) 0.7 10^3/uL (1.5-3.5); LYMPHOCYTES % (AUTO) 6.1 %; MEAN CORPUSCULAR HEMOGLOBIN 32.4 pg (27.0-31.0); MEAN CORPUSCULAR HGB CONC 32.8 g/dL (32.0-36.0); MEAN CORPUSCULAR VOLUME 98.7 fL (80.0-94.0); MEAN PLATELET VOLUME 10.4 fL (7.4-11.4); MONOCYTES # (AUTO) 0.3 10^3/uL (0.0-1.0); MONOCYTES % (AUTO) 2.7 %; NEUTROPHILS # (AUTO) 10.2 10^3/uL (1.5-6.6); NEUTROPHILS % (AUTO) 89.3 %; PLT - PLATELET COUNT 189 10^3/uL (130-450); RED BLOOD COUNT 3.77 10^6/uL (4.70-6.10); RED CELL DISTRIBUTION WIDTH 12.9 % (12.0-15.0); WHITE BLOOD COUNT 11.4 x10^3/uL (4.8-10.8)
[2020-01-03 05:29] LABS: CALCIUM 7.8 mg/dL (8.5-10.3); CREATININE 1.2 mg/dL (0.6-1.2); MAGNESIUM 2.3 mg/dL (1.7-2.8); PHOSPHORUS 2.5 mg/dL (2.5-4.6)
[2020-01-03] MEDS: KETOROLAC 30 MG/ML VIAL IVP SCH ×4 (05:42→23:35)
[2020-01-03] MEDS: METOCLOPRAMIDE 10 MG/2 ML VIAL IVP SCH ×4 (05:43→23:35)
[2020-01-03] MEDS: methocarbamoL 500 MG TABLET PO SCH ×4 (05:44→23:36)
[2020-01-03] MEDS: PIPERACILLIN/TAZOBACTAM 3.375 GM in SODIUM CHLORIDE 0.9% MINIBAG 100 ML IV SCH ×4 (05:45→23:36)
[2020-01-03] MEDS: PANTOPRAZOLE 40 MG VIAL IVP SCH (06:16)
[2020-01-03] MEDS: D5NS W/20 MEQ KCL 1,000 ML IV SCH ×3 (07:41→14:49)
[2020-01-03] MEDS: polyethylene glycoL 3350 17 GM PACKET PO SCH ×2 (08:04→19:58)
[2020-01-03] MEDS: DOCUSATE SODIUM 100 MG CAPSULE PO SCH ×2 (08:04→19:58)
[2020-01-03] MEDS: VANCOMYCIN INJ 1.25 GM in SODIUM CHLORIDE 0.9% 250 ML IV SCH ×2 (08:08→19:57)
[2020-01-03] MEDS: SODIUM CHLORIDE FLUSH 0.9% 10 ML SYRINGE IVP PRN (08:14)
[2020-01-03] MEDS: ENOXAPARIN 40 MG/0.4 ML SYRINGE SUBQ SCH (08:14)
[2020-01-03] MEDS: ASPIRIN CHEW 81 MG TABLET PO SCH (08:14)
[2020-01-03] MEDS: BRIMONIDINE 0.2% OPHTH DROPS 5 ML EACHEYE SCH ×2 (08:16→19:58)
[2020-01-03] MEDS: DORZOLAMIDE/TIMOLOL OPHTH DROPS EACHEYE SCH ×2 (08:16→19:58)
--- NOTE | 2020-01-03 12:59 | PROVIDER PROGRESS NOTE ---
Progress Note Subjective No nausea. No vomiting. Positive stoma output. [place] removed. Awaiting trial of void. Pain controlled. Continues on S[employer]IOR ASS[employer]ATE. Pre-Op Diagnosis: Pneumoperitoneum, abdominal pain, localized peritonitis. Post Op Diagnosis: Same, enteritis, abscess/phlegmon; colitis with mesenteric panniculitis Procedure Performed: 1. Diagnostic laparoscopy 2. Exploratory laparotomy, mini 3. Laparoscopic adhesiolysis 4. Evacuation and takedown of abdominal abscess, largest 5. Right colectomy with a [id number] functional end-to-end anastomosis antiperistaltic 6. Left colectomy with end-to-end double stapled anastomosis, colotomies closed by hand in 2 layers 7. Abdominal washout, extensive 8. Loop ileostomy 9. Wound VAC placement 10. Umbilical hernia repair Objective Afebrile hemodynamically acceptable General Appearance: positive: No acute distress Eyes Bilateral: positive: Normal inspection ENT: positive: ENT inspection nml Neck: positive: Nml inspection Respiratory: positive: Chest non-tender, No respiratory distress, Breath sounds nml. negative: Wheezes, Rales, Rhonchi Cardiovascular: positive: Regular rate & rhythm Abdomen: positive: No distention, Other. negative: Guarding, Rebound Extremities: positive: Non-tender, Full ROM, Nml appearance Neurologic/Psychiatric: positive: Oriented x3, CN's nml (2-12) Abdomen specified: Soft, nondistended, appropriately tender to palpation. No rebound, no guarding. MATT with serosanguineous drainage. Wound VAC in place midline incision. No surrounding erythema, no induration, no concern for active infectious process. Stoma pink and productive of bilious effluent and gas. Impression/Plan Postoperative day #1 status post above listed procedure. Overall doing well. Awaiting pathology. Continue antibiotics. Plan going forward is as follows: (1) GI - IVF, bowel regimen, advance diet as tolerated. GI ppx. No longer considered a candidate for TPN given resumption of bowel function.. Opiate sparring analgesia. (2) SURGERY - Maintain stoma bolster. Continue MATT drains until discharge. We will continue wound VAC and plan for delayed primary closure prior to discharge with bedside vertical mattresses and closure. Before ileostomy takedown patient will need colonoscopy as well as repeat imaging to assure double resection and anastomoses are intact. More importantly, we will have to await pathology given the exceedingly concerning findings as it relates to inflammation in the size of the local phlegmon/abscess without any single definitive source across the right colon, cecum, left colon and sigmoid, small bowel, and appendix.. (3) Renal/Lytes - continue IVF. Renal indices within normal limits. Trial of void.Patient will need to be watched closely inpatient and post discharge for stoma output in anticipation of risk of dehydration in the setting of loop ileostomy. Potential for outpatient PICC line for infusions and regular weekly labs pending ileostomy takedown. (4) Respiratory - O2 as necessary. Continue IS. (5) Heme - Will continue with DVT ppx. H/H stable. (6) Cardiovascular - HD acceptable. (7) Neuro - Opiate sparring analgesia. Antispasmodics with Robaxin. [Toradol]. Neuropathic agents. (8) Immune/Infectious Disease - We will continue Zosyn and vancomycin empirically and trend white count. No cultures as feculent drainage noted within the abscess/phlegmon. We will consider sending drain effluent for culture to assure we are not missing anything from a infectious disease standpoint especially if leukocytosis fails to resolve. (9) Disposition - physical therapy and occupational therapy, out of bed, discharge planning with outpatient plan for possible PICC line placement weekly fluid infusions towards avoiding dehydration. Patient will need labs drawn weekly as well to assure no renal complications as a relates to his compromised fluid status in the setting of proximal diversion with loop ileostomy. Please note that voice recognition software was used to transcribe this note and inadvertent errors might persist in spite of review and editing. I am obliged to you for your attention. I am thankful to you for allowing me to participate with you in this care of this patient.
[2020-01-03] MEDS: LATANOPROST 0.005% OPHTH DROPS EACHEYE SCH (19:58)
[2020-01-04] MEDS: D5NS W/20 MEQ KCL 1,000 ML IV SCH ×3 (01:32→11:45)
[2020-01-04] MEDS: PIPERACILLIN/TAZOBACTAM 3.375 GM in SODIUM CHLORIDE 0.9% MINIBAG 100 ML IV SCH ×3 (05:23→18:01)
[2020-01-04] MEDS: METOCLOPRAMIDE 10 MG/2 ML VIAL IVP SCH ×3 (05:23→17:58)
[2020-01-04] MEDS: KETOROLAC 30 MG/ML VIAL IVP SCH ×3 (05:23→17:58)
[2020-01-04] MEDS: methocarbamoL 500 MG TABLET PO SCH ×3 (05:23→17:58)
[2020-01-04 05:41] LABS: BASOPHILS % (AUTO) 0.3 %; EOSINOPHILS # (AUTO) 0.4 10^3/uL (0.0-0.7); EOSINOPHILS % (AUTO) 3.5 %; HGB - HEMOGLOBIN 11.9 g/dL (14.0-18.0); LYMPHOCYTES # (AUTO) 1.2 10^3/uL (1.5-3.5); LYMPHOCYTES % (AUTO) 9.3 %; MEAN CORPUSCULAR HEMOGLOBIN 31.7 pg (27.0-31.0); MEAN CORPUSCULAR VOLUME 99.2 fL (80.0-94.0); MEAN PLATELET VOLUME 9.6 fL (7.4-11.4); MONOCYTES # (AUTO) 0.7 10^3/uL (0.0-1.0); MONOCYTES % (AUTO) 5.6 %; NEUTROPHILS # (AUTO) 10.1 10^3/uL (1.5-6.6); NEUTROPHILS % (AUTO) 80.3 %; PLT - PLATELET COUNT 237 10^3/uL (130-450); RED BLOOD COUNT 3.75 10^6/uL (4.70-6.10); RED CELL DISTRIBUTION WIDTH 13.1 % (12.0-15.0); WHITE BLOOD COUNT 12.6 x10^3/uL (4.8-10.8)
[2020-01-04 05:54] LABS: CALCIUM 7.8 mg/dL (8.5-10.3); CREATININE 1.2 mg/dL (0.6-1.2); MAGNESIUM 2.3 mg/dL (1.7-2.8); PHOSPHORUS 1.7 mg/dL (2.5-4.6)
[2020-01-04] MEDS: LEVOTHYROXINE 25 MCG TABLET PO SCH (06:18)
[2020-01-04] MEDS: PANTOPRAZOLE 40 MG VIAL IVP SCH (06:18)
[2020-01-04] MEDS: BRIMONIDINE 0.2% OPHTH DROPS 5 ML EACHEYE SCH ×2 (08:51→20:28)
[2020-01-04] MEDS: DORZOLAMIDE/TIMOLOL OPHTH DROPS EACHEYE SCH ×2 (08:51→20:28)
[2020-01-04] MEDS: polyethylene glycoL 3350 17 GM PACKET PO SCH ×2 (08:52→20:29)
[2020-01-04] MEDS: ASPIRIN CHEW 81 MG TABLET PO SCH (08:52)
[2020-01-04] MEDS: DOCUSATE SODIUM 100 MG CAPSULE PO SCH ×2 (08:53→17:58)
[2020-01-04] MEDS: VANCOMYCIN INJ 1.25 GM in SODIUM CHLORIDE 0.9% 250 ML IV SCH ×2 (08:53→20:05)
[2020-01-04] MEDS: ENOXAPARIN 40 MG/0.4 ML SYRINGE SUBQ SCH (08:57)
--- NOTE | 2020-01-04 10:20 | PROVIDER PROGRESS NOTE ---
Progress Note Subjective No nausea. No vomiting. Positive stoma output. Voiding. Pain controlled. Continues on METALIZER. Pre-Op Diagnosis: Pneumoperitoneum, abdominal pain, localized peritonitis. Post Op Diagnosis: Same, enteritis, abscess/phlegmon; colitis with mesenteric panniculitis Procedure Performed: 1. Diagnostic laparoscopy 2. Exploratory laparotomy, mini 3. Laparoscopic adhesiolysis 4. Evacuation and takedown of abdominal abscess, largest 5. Right colectomy with a [id number] functional end-to-end anastomosis antiperistaltic 6. Left colectomy with end-to-end double stapled anastomosis, colotomies closed by hand in 2 layers 7. Abdominal washout, extensive 8. Loop ileostomy 9. Wound VAC placement 10. Umbilical hernia repair Objective Afebrile hemodynamically acceptable General Appearance: positive: No acute distress Eyes Bilateral: positive: Normal inspection ENT: positive: ENT inspection nml Neck: positive: Nml inspection Respiratory: positive: Chest non-tender, No respiratory distress, Breath sounds nml. negative: Wheezes, Rales, Rhonchi Cardiovascular: positive: Regular rate & rhythm Abdomen: positive: No distention, Other. negative: Guarding, Rebound Extremities: positive: Non-tender, Full ROM, Nml appearance Neurologic/Psychiatric: positive: Oriented x3, CN's nml (2-12) Abdomen specified: Soft, nondistended, appropriately tender to palpation. No rebound, no guarding. MATT with serosanguineous drainage. Wound VAC in place midline incision. No surrounding erythema, no induration, no concern for active infectious process. Stoma pink and productive of bilious effluent and gas. Impression/Plan Postoperative day #2 status post above listed procedure. Overall doing well. Awaiting pathology. Continue antibiotics. Plan going forward is as follows: (1) GI - IVF, bowel regimen, advance diet as tolerated. GI ppx. Opiate sparring analgesia. (2) SURGERY - Maintain stoma bolster. Continue MATT drains until discharge. We will continue wound VAC and plan for delayed primary closure prior to discharge with bedside vertical mattresses and closure. Before ileostomy takedown patient will need colonoscopy as well as repeat imaging to assure double resection and anastomoses are intact. More importantly, we will have to await pathology given the exceedingly concerning findings as it relates to inflammation in the size of the local phlegmon/abscess without any single definitive source across the right colon, cecum, left colon and sigmoid, small bowel, and appendix.. (3) Renal/Lytes - decrease IVF. Renal indices within normal limits. Trial of void.Patient will need to be watched closely inpatient and post discharge for stoma output in anticipation of risk of dehydration in the setting of loop ileostomy. Potential for outpatient PICC line for infusions and regular weekly labs pending ileostomy takedown. (4) Respiratory - O2 as necessary. Continue IS. (5) Heme - Will continue with DVT ppx. H/H stable. (6) Cardiovascular - Hypertensive. Dosed hydralazine. Will have hospital service reevaluate patient as they were stratified the patient prior to surgical intervention. (7) Neuro - Opiate sparring analgesia. Antispasmodics with Robaxin. Neuropathic agents. (8) Immune/Infectious Disease - We will continue Zosyn and vancomycin empirically and trend white count. No cultures as feculent drainage noted within the abscess/phlegmon. We will consider sending drain effluent for culture to assure we are not missing anything from a infectious disease standpoint especially if leukocytosis fails to resolve. (9) Disposition - physical therapy and occupational therapy, out of bed, discharge planning with outpatient plan for possible PICC line placement weekly fluid infusions towards avoiding dehydration. Patient will need labs drawn weekly as well to assure no renal complications as a relates to his compromised fluid status in the setting of proximal diversion with loop ileostomy. Please note that voice recognition software was used to transcribe this note and inadvertent errors might persist in spite of review and editing. I am obliged to you for your attention. I am thankful to you for allowing me to participate with you in this care of this patient.
[2020-01-04] MEDS ORDERED: SODIUM PHOSPHATE 20 MMOL in SODIUM CHLORIDE 0.9% 250 ML IV ONE (10:33)
[2020-01-04] MEDS: SODIUM CHLORIDE FLUSH 0.9% 10 ML SYRINGE IVP SCH ×2 (11:39→17:29)
[2020-01-04] MEDS ORDERED: hydrALAZINE INJ 20 MG/ML VIAL IVP ONE (17:12)
[2020-01-04] MEDS: LATANOPROST 0.005% OPHTH DROPS EACHEYE SCH (20:29)
[2020-01-04] MEDS: oxyCODONE 5 MG TABLET PO PRN (22:34)
[2020-01-05] MEDS: D5NS W/20 MEQ KCL 1,000 ML IV SCH ×2 (00:08→14:20)
[2020-01-05] MEDS: methocarbamoL 500 MG TABLET PO SCH ×4 (00:08→18:27)
[2020-01-05] MEDS: PIPERACILLIN/TAZOBACTAM 3.375 GM in SODIUM CHLORIDE 0.9% MINIBAG 100 ML IV SCH ×4 (00:09→20:04)
[2020-01-05] MEDS: METOCLOPRAMIDE 10 MG/2 ML VIAL IVP SCH ×4 (00:09→18:27)
[2020-01-05] MEDS: KETOROLAC 30 MG/ML VIAL IVP SCH ×4 (00:09→18:27)
[2020-01-05] MEDS: SODIUM CHLORIDE FLUSH 0.9% 10 ML SYRINGE IVP SCH ×3 (00:10→18:27)
[2020-01-05 05:08] LABS: BASOPHILS # (AUTO) 0.1 10^3/uL (0.0-0.1); BASOPHILS % (AUTO) 0.7 %; EOSINOPHILS # (AUTO) 0.7 10^3/uL (0.0-0.7); EOSINOPHILS % (AUTO) 8.4 %; HGB - HEMOGLOBIN 12.2 g/dL (14.0-18.0); LYMPHOCYTES # (AUTO) 1.4 10^3/uL (1.5-3.5); LYMPHOCYTES % (AUTO) 16.1 %; MEAN CORPUSCULAR HEMOGLOBIN 30.9 pg (27.0-31.0); MEAN CORPUSCULAR HGB CONC 31.6 g/dL (32.0-36.0); MEAN CORPUSCULAR VOLUME 97.7 fL (80.0-94.0); MEAN PLATELET VOLUME 9.6 fL (7.4-11.4); MONOCYTES # (AUTO) 0.6 10^3/uL (0.0-1.0); MONOCYTES % (AUTO) 7.4 %; NEUTROPHILS # (AUTO) 5.7 10^3/uL (1.5-6.6); PLT - PLATELET COUNT 255 10^3/uL (130-450); RED BLOOD COUNT 3.95 10^6/uL (4.70-6.10); RED CELL DISTRIBUTION WIDTH 12.9 % (12.0-15.0); WHITE BLOOD COUNT 8.7 x10^3/uL (4.8-10.8)
[2020-01-05 05:22] LABS: CALCIUM 8.1 mg/dL (8.5-10.3); CREATININE 1.1 mg/dL (0.6-1.2)
[2020-01-05] MEDS: LEVOTHYROXINE 25 MCG TABLET PO SCH (06:14)
[2020-01-05] MEDS: PANTOPRAZOLE 40 MG VIAL IVP SCH (06:15)
[2020-01-05 07:55] LABS: VANCOMYCIN,TROUGH 18.6 ug/mL (10.0-20.0)
[2020-01-05] MEDS: VANCOMYCIN INJ 1.25 GM in SODIUM CHLORIDE 0.9% 250 ML IV SCH ×2 (09:15→21:21)
[2020-01-05] MEDS: ASPIRIN CHEW 81 MG TABLET PO SCH (09:18)
[2020-01-05] MEDS: DOCUSATE SODIUM 100 MG CAPSULE PO SCH (09:18)
[2020-01-05] MEDS: ENOXAPARIN 40 MG/0.4 ML SYRINGE SUBQ SCH (09:20)
[2020-01-05] MEDS ORDERED: hydrALAZINE INJ 20 MG/ML VIAL IVP ONE (10:22)
[2020-01-05] MEDS: BRIMONIDINE 0.2% OPHTH DROPS 5 ML EACHEYE SCH ×2 (10:51→21:22)
[2020-01-05] MEDS: DORZOLAMIDE/TIMOLOL OPHTH DROPS EACHEYE SCH ×2 (10:52→21:21)
[2020-01-05] MEDS: polyethylene glycoL 3350 17 GM PACKET PO SCH (10:54)
[2020-01-05] MEDS ORDERED: hydrALAZINE INJ 20 MG/ML VIAL IVP SCH (11:00)
--- NOTE | 2020-01-05 11:20 | PROVIDER PROGRESS NOTE ---
Progress Note Subjective 69-year-old male who presented with contained perforation, localized peritonitis, who is postoperative day #3 status post operative intervention. Patient is hospital day #4. He is tolerating oral intake. He has no fevers. No nausea, no vomiting. Had no IV access was placed by me for an external jugular catheter. Eager for discharge. Complex disposition. Patient has been hypertensive over the last day. Notable history of carotid endarterectomy. He required multiple pushes of hydralazine for hypertensive control. 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 Pre-Op Diagnosis: Pneumoperitoneum, abdominal pain, localized peritonitis. Post Op Diagnosis: Same, enteritis, abscess/phlegmon; colitis with mesenteric panniculitis Procedure Performed: 1. Diagnostic laparoscopy 2. Exploratory laparotomy, mini 3. Laparoscopic adhesiolysis 4. Evacuation and takedown of abdominal abscess, largest 5. Right colectomy with a [id number] functional end-to-end anastomosis antiperistaltic 6. Left colectomy with end-to-end double stapled anastomosis, colotomies closed by hand in 2 layers 7. Abdominal washout, extensive 8. Loop ileostomy 9. Wound VAC placement 10. Umbilical hernia repair Objective Afebrile hemodynamically acceptable General Appearance: positive: No acute distress Eyes Bilateral: positive: Normal inspection ENT: positive: ENT inspection nml Neck: positive: Nml inspection Respiratory: positive: Chest non-tender, No respiratory distress, Breath sounds nml. negative: Wheezes, Rales, Rhonchi Cardiovascular: positive: Regular rate & rhythm Abdomen: positive: No distention, Other. negative: Guarding, Rebound Extremities: positive: Non-tender, Full ROM, Nml appearance Neurologic/Psychiatric: positive: Oriented x3, CN's nml (2-12) Wound VAC in place. Ileostomy with bolster in place pink and productive of stool. MATT x2 serosanguineous. Abdomen soft nontender nondistended no rebound no guarding. Impression/Plan Postoperative day #3 status post above listed procedure. Overall doing well. Awaiting pathology. Continue antibiotics. Plan going forward is as follows: (1) GI - IVF, discontinue bowel regimen, have advance diet as tolerated. Continue to watch ileostomy output cautiously. May need Lomotil to modulate effluent. No evidence of ileus. GI ppx. Opiate sparring analgesia. (2) SURGERY - Maintain stoma bolster. Continue MATT drains until discharge. We will continue wound VAC and plan for delayed primary closure prior to discharge with bedside vertical mattresses and closure. Before ileostomy takedown patient will need colonoscopy as well as repeat imaging to assure double resection and anastomoses are intact. More importantly, we will have to await pathology given the exceedingly concerning findings as it relates to inflammation in the SIZABLE local phlegmon/abscess without any single definitive source across the right colon, cecum, left colon and sigmoid, small bowel, and appendix. (3) Renal/Lytes - decrease IVF. Renal indices within normal limits. Voiding. Will consider Flomax to avoid any complications as a relates to BPH and retention. Patient will need to be watched closely inpatient and post discharge for stoma output in anticipation of risk for dehydration in the setting of loop ileostomy. Potential for outpatient PICC line for infusions and regular weekly labs pending ileostomy takedown. (4) Respiratory - O2 as necessary. Continue IS. (5) Heme - Will continue with DVT ppx. H/H stable. (6) Cardiovascular - Hypertensive. Dosed hydralazine. Appreciate hospitalist service for their reevaluation of the patient as they were stratified and optimized prior to surgical intervention. I discussed with Dr. Toribio after having attempted to reach out to [facility] hospitalist service who initially saw the patient through consult. (7) Neuro - Opiate sparring analgesia. Antispasmodics with Robaxin. Neuropathic agents. (8) Immune/Infectious Disease - We will continue Zosyn and vancomycin empirically and trend white count. No cultures as feculent drainage noted within the abscess/phlegmon. We will consider sending drain effluent for culture to assure we are not missing anything from a infectious disease standpoint especially if leukocytosis fails to resolve. Will transition to [facility] for another 7 to 10 days of outpatient IV antibiotics. PICC line in place. (9) Disposition - physical therapy and occupational therapy, out of bed, discharge planning with outpatient plan for possible PICC line placement weekly fluid infusions towards avoiding dehydration. Patient will need labs drawn weekly as well to assure no renal complications as a relates to his compromised fluid status in the setting of proximal diversion with loop ileostomy. Please note that voice recognition software was used to transcribe this note and inadvertent errors might persist in spite of review and editing. I am obliged to you for your attention. I am thankful to you for allowing me to participate with you in this care of this patient.
[2020-01-05] MEDS ORDERED: ENALAPRILAT 1.25 MG/ML VIAL IVP SCH (13:00)
[2020-01-05] MEDS ORDERED: hydrALAZINE INJ 20 MG/ML VIAL IVP PRN (14:00)
[2020-01-05] MEDS: oxyCODONE 5 MG TABLET PO PRN ×2 (14:26→21:21)
[2020-01-05] MEDS: ENALAPRILAT 1.25 MG/ML VIAL IVP SCH ×2 (14:30→18:27)
--- NOTE | 2020-01-05 15:48 | ANESTHESIA PROCEDURE NOTE ---
Anesth Central Line Template - Central Line Central Line Preparation: Consent Obtained Central line location: Right Basilic Central line type: PICC Single Lumen Central line catheter tip site resides: Superior vena cava (SVC) Central line aftercare: Secured, No complications, Bundle checklist complete, Pt tolerated well, Other (Verified by CXR Placed by Callum López CRNA)
--- NOTE | 2020-01-05 15:49 | XRAY Report ---
PROCEDURE: Chest for Line Placement INDICATIONS: PICC line placement TECHNIQUE: One view of the chest was acquired. COMPARISON: 01/01/2020 FINDINGS: Surgical changes and devices: Right-sided PICC line tip is in SVC.. Lungs and pleura: No pleural effusions or pneumothorax. Lungs are clear. Mediastinum: Mediastinal contours appear normal. Heart size is normal. Bones and chest wall: No suspicious bony lesions. Overlying soft tissues appear unremarkable. IMPRESSION: Right-sided PICC line tip is in SVC. No focal infiltrate, pleural effusion or pneumothorax. Reviewed by: Jamison Jauregui MD on 01/05/2020 2:47 PM AKDT Approved by: Jamison Jauregui MD on 01/05/2020 2:47 PM AKDT Station ID: [id number]
--- NOTE | 2020-01-05 19:17 | PROVIDER PROGRESS NOTE ---
Progress Note Patient status post PICC line placement earlier today without complication. Notified overnight by nursing staff that patient's ileostomy appliance leaked with feculent effluent migrating into the patient's wound VAC. I advised that the ostomy appliance to be changed at that the patient be replaced for his midline wound VAC. I informed him that this would not be a circumstance in which I could perform delayed primary closure at this time given concerns for contamination. This was a contaminated wound in the setting of a contaminated case in a patient with localized peritonitis, contained perforation, and both feculent and purulent abscess cavity with large phlegmon. Plan would change as follows: 1. Continue outpatient wound VAC therapy and will need to discuss with social work 2. 10 days of Invanz as outpatient will change IV antibiotic therapy and consolidate 3. Defer drain managment to Dr. Dwayne Ibanez who has kindly agreed and will be covering this patient. 4. Outpatient labs to include CBC and CMP at least weekly and consideration for IV infusions pending ileostomy takedown 5. Inpatient wound and ostomy care consultation 6. Awaiting anti-hypertensive care management recommendations from hospitalist service
[2020-01-05] MEDS: LATANOPROST 0.005% OPHTH DROPS EACHEYE SCH (21:21)
[2020-01-06] MEDS: methocarbamoL 500 MG TABLET PO SCH ×4 (00:39→18:18)
[2020-01-06] MEDS: KETOROLAC 30 MG/ML VIAL IVP SCH ×4 (00:41→18:31)
[2020-01-06] MEDS: METOCLOPRAMIDE 10 MG/2 ML VIAL IVP SCH ×4 (00:41→18:25)
[2020-01-06] MEDS: SODIUM CHLORIDE FLUSH 0.9% 10 ML SYRINGE IVP SCH ×3 (00:42→16:35)
[2020-01-06] MEDS: ENALAPRILAT 1.25 MG/ML VIAL IVP SCH ×4 (01:19→18:50)
[2020-01-06] MEDS: oxyCODONE 5 MG TABLET PO PRN ×2 (01:47→06:11)
[2020-01-06] MEDS: ACETAMINOPHEN 325 MG TABLET PO PRN ×2 (01:47→06:11)
[2020-01-06] MEDS: PIPERACILLIN/TAZOBACTAM 3.375 GM in SODIUM CHLORIDE 0.9% MINIBAG 100 ML IV SCH ×2 (01:50→08:18)
[2020-01-06 06:01] LABS: BASOPHILS # (AUTO) 0.1 10^3/uL (0.0-0.1); BASOPHILS % (AUTO) 0.6 %; EOSINOPHILS # (AUTO) 0.9 10^3/uL (0.0-0.7); EOSINOPHILS % (AUTO) 8.3 %; LYMPHOCYTES # (AUTO) 1.4 10^3/uL (1.5-3.5); LYMPHOCYTES % (AUTO) 12.6 %; MEAN CORPUSCULAR HEMOGLOBIN 31.8 pg (27.0-31.0); MEAN CORPUSCULAR HGB CONC 32.8 g/dL (32.0-36.0); MEAN CORPUSCULAR VOLUME 96.8 fL (80.0-94.0); MEAN PLATELET VOLUME 9.3 fL (7.4-11.4); MONOCYTES # (AUTO) 0.8 10^3/uL (0.0-1.0); NEUTROPHILS # (AUTO) 7.3 10^3/uL (1.5-6.6); NEUTROPHILS % (AUTO) 67.2 %; PLT - PLATELET COUNT 267 10^3/uL (130-450); RED BLOOD COUNT 4.09 10^6/uL (4.70-6.10); RED CELL DISTRIBUTION WIDTH 12.6 % (12.0-15.0); WHITE BLOOD COUNT 10.8 x10^3/uL (4.8-10.8)
[2020-01-06 06:06] LABS: CALCIUM 8.3 mg/dL (8.5-10.3); CREATININE 1.2 mg/dL (0.6-1.2)
[2020-01-06] MEDS: LEVOTHYROXINE 25 MCG TABLET PO SCH (06:12)
[2020-01-06] MEDS: D5NS W/20 MEQ KCL 1,000 ML IV SCH ×2 (07:35→15:03)
[2020-01-06] MEDS: PANTOPRAZOLE 40 MG VIAL IVP SCH (07:36)
[2020-01-06] MEDS: BRIMONIDINE 0.2% OPHTH DROPS 5 ML EACHEYE SCH ×2 (08:33→21:12)
[2020-01-06] MEDS: DORZOLAMIDE/TIMOLOL OPHTH DROPS EACHEYE SCH ×2 (08:54→21:12)
[2020-01-06] MEDS: ENOXAPARIN 40 MG/0.4 ML SYRINGE SUBQ SCH (09:06)
[2020-01-06] MEDS: ASPIRIN CHEW 81 MG TABLET PO SCH (09:07)
[2020-01-06] MEDS ORDERED: amLODIPine 5 MG TABLET PO SCH ×2 (10:00→19:00)
[2020-01-06] MEDS ORDERED: lisinopriL 5 MG TABLET PO SCH ×2 (14:14→15:00)
[2020-01-06 15:09] LABS: BASOPHILS # (AUTO) 0.1 10^3/uL (0.0-0.1); BASOPHILS % (AUTO) 0.9 %; EOSINOPHILS # (AUTO) 0.8 10^3/uL (0.0-0.7); EOSINOPHILS % (AUTO) 7.7 %; HGB - HEMOGLOBIN 14.2 g/dL (14.0-18.0); LYMPHOCYTES # (AUTO) 1.4 10^3/uL (1.5-3.5); LYMPHOCYTES % (AUTO) 13.9 %; MEAN CORPUSCULAR HEMOGLOBIN 31.1 pg (27.0-31.0); MEAN CORPUSCULAR HGB CONC 32.2 g/dL (32.0-36.0); MEAN CORPUSCULAR VOLUME 96.5 fL (80.0-94.0); MEAN PLATELET VOLUME 9.2 fL (7.4-11.4); MONOCYTES # (AUTO) 0.7 10^3/uL (0.0-1.0); NEUTROPHILS # (AUTO) 6.6 10^3/uL (1.5-6.6); NEUTROPHILS % (AUTO) 65.7 %; PLT - PLATELET COUNT 303 10^3/uL (130-450); RED BLOOD COUNT 4.57 10^6/uL (4.70-6.10); RED CELL DISTRIBUTION WIDTH 12.7 % (12.0-15.0); WHITE BLOOD COUNT 10.1 x10^3/uL (4.8-10.8)
--- NOTE | 2020-01-06 15:23 | PROVIDER PROGRESS NOTE ---
Subjective - Prog Note Date Prog Note Date: 01/06/20 - Subjective Pt reports feeling: Improved Subjective: Patient is comfortable sitting in the chair, he denies abdominal pain, fever, chill. Nurse report patient had bleeding of the surgery site. The surgery site was already packed, dress is clean and no acute bleeding can be vision now. Nurse already called surgeon for assessment for pt. Dr. Ibanez called me on this afternoon for consult of medical management for this patient. Patient was stopped antibiotics on yesterday, restarted antibiotics at this afternoon. Per surgeon's note patient will start with intravenous antibiotics for 10 days after D/C. Current Medications - Current Medications Current Medications: Active Medications Acetaminophen (Tylenol) 650 mg PO Q4HR PRN PRN Reason: Pain or Fever > 38C (100.4F) Last Admin: 01/06/20 06:11 Dose: 650 mg Documented by: Brimonidine Tartrate (Alphagan P 0.2% Ophth Drops) 1 drops EACHEYE BID [facility] Last Admin: 01/06/20 08:33 Dose: 1 drops Documented by: Dorzolamide/Timolol (Cosopt) 1 drops EACHEYE BID [facility] Last Admin: 01/06/20 08:54 Dose: 1 drops Documented by: Enalaprilat (Vasotec Inj) 1.25 mg IVP Q6HR [facility] Last Admin: 01/06/20 12:00 Dose: 1.25 mg Documented by: Potassium Chloride/Dextrose/Sod Cl () 1,000 mls @ 83.333 mls/hr IV .Q12H [facility] Last Admin: 01/06/20 15:03 Dose: 83 mls/hr Documented by: Meropenem 1 gm/ Sodium (Chloride) 100 mls @ 200 mls/hr IV Q8H [facility] Ketorolac Tromethamine (Toradol Inj (30mg)) 15 mg IVP Q6HR [facility] Stop: 01/07/20 17:59 Last Admin: 01/06/20 13:01 Dose: 15 mg Documented by: Latanoprost (Xalatan Ophth Drops) 1 drops EACHEYE QPM [facility] Last Admin: 01/05/20 21:21 Dose: 1 drops Documented by: Levothyroxine Sodium (Synthroid) 112 mcg PO QDAC [facility] Lisinopril (Zestril) 10 mg PO DAILY [facility] Last Admin: 01/06/20 14:55 Dose: 10 mg Documented by: Methocarbamol (Robaxin) 500 mg PO Q6HR [facility] Last Admin: 01/06/20 13:02 Dose: 500 mg Documented by: Metoclopramide HCl (Reglan Inj) 10 mg IVP Q6HR [facility] Last Admin: 01/06/20 13:06 Dose: 10 mg Documented by: Ondansetron HCl (Zofran Inj) 4 mg IVP Q6HR PRN PRN Reason: Nausea / Vomiting Oxycodone HCl (Roxicodone) 5 mg PO Q4HR PRN PRN Reason: PAIN Last Admin: 01/06/20 06:11 Dose: 5 mg Documented by: Pantoprazole Sodium (Protonix) 40 mg IVP QDAC [facility] Last Admin: 01/06/20 07:36 Dose: 40 mg Documented by: Sodium Chloride (Normal Saline Flush 0.9%) 10 ml IVP 0100,0900,1700 [facility] Last Admin: 01/06/20 11:54 Dose: Not Given Documented by: Sodium Chloride (Normal Saline Flush 0.9%) 10 ml IVP PRN PRN PRN Reason: NEEDED PER PROVIDER ORDERS Last Admin: 01/03/20 08:14 Dose: 10 ml Documented by: Brimonidine 0.2% Ophth Drops [Alphagan P 0.2% Ophth Drops] 1 drops EACHEYE BID 01/01/20 Dorzolamide HCl/Timolol Maleat [Dorzolamide-Timolol Eye Drops] 1 drops EACHEYE BID 01/01/20 Latanoprost 0.005% Ophth Drops [Xalatan Ophth Drops] 1 drops EACHEYE QPM 01/01/20 Aspirin Chewable [St Lj Aspirin] 81 mg PO DAILY 01/02/20 Allopurinol [Zyloprim] 300 mg PO DAILY 01/06/20 Ezetimibe [Zetia] 10 mg PO DAILY 01/06/20 Levothyroxine [Synthroid] 100 mcg PO QDAC 01/06/20 Lisinopril [Prinivil] 5 mg PO DAILY 01/06/20 Objective - Vital Signs/Intake & Output Vital Signs: Vital Signs x48h Temp Pulse Resp BP BP Pulse Ox 01/06/20 12:45 72 17 160/80 H 96 01/06/20 12:25 71 16 159/74 H 96 01/06/20 12:10 71 16 154/80 H 96 01/06/20 12:05 71 16 154/76 H 96 01/06/20 12:00 36.9 C 69 16 173/74 H 96 01/06/20 11:43 73 16 161/94 H 96 01/06/20 09:37 75 145/61 H 96 01/06/20 09:14 75 158/72 H 96 01/06/20 08:57 161/94 H 01/06/20 08:42 80 17 164/84 H 96 01/06/20 08:37 82 17 174/76 H 96 01/06/20 08:32 63 17 154/71 H 95 01/06/20 08:27 62 174/86 H 95 01/06/20 08:08 36.6 C 68 18 174/89 H 96 Intake & Output: Intake & Output 01/03/20 01/04/20 01/05/20 01/06/20 23:59 23:59 23:59 23:59 Intake Total 4653.001 3674.1657 4196.404 1613.329 Output Total 1770 4500 6295 2160 Balance 2883.001 -825.8343 -2098.596 -546.671 - Objective General Appearance: positive: No acute distress, Alert. negative: Lethargic Eyes Bilateral: positive: Normal inspection, PERRL, No lid inflammation ENT: positive: ENT inspection nml, No signs of dehydration. negative: Purulent nasal drainage Neck: positive: Nml inspection, Thyroid nml, Trachea midline. negative: Thyromegaly, Tracheal deviation Respiratory: positive: Chest non-tender, No respiratory distress. negative: Wheezes, Rales, Rhonchi Cardiovascular: positive: Regular rate & rhythm, No murmur. negative: Tachycardia, Bradycardia, Systolic murmur, Diastolic murmur Peripheral Pulses: 2+ Radial (R), 2+ Radial (L) Abdomen: positive: Non-tender, No distention. negative: Tenderness, Guarding, Rebound Back: positive: Nml inspection Skin: positive: Color nml, No rash, Warm, Dry. negative: Cyanosis, Diaphoresis, Pallor Extremities: positive: Non-tender, Full ROM, Nml appearance. negative: Calf tenderness Neurologic/Psychiatric: positive: Oriented x3, Motor nml, Sensation nml, Mo od/affect nml. negative: Weakness, Sensory loss, Facial droop, Slurred/abnml speech, Depressed mood/affect - Lab Results Fish Bones: 01/06/20 15:01 01/06/20 05:56 Other Labs: Lab Results x24hrs 01/06/20 01/06/20 01/06/20 Range/Units 15:01 05:56 05:56 WBC 10.1 10.8 (4.8-10.8) x10^3/uL RBC 4.57 L 4.09 L (4.70-6.10) 10^6/uL Hgb 14.2 13.0 L (14.0-18.0) g/dL Hct 44.1 39.6 L (42.0-52.0) % MCV 96.5 H 96.8 H (80.0-94.0) fL MCH 31.1 H 31.8 H (27.0-31.0) pg MCHC 32.2 32.8 (32.0-36.0) g/dL RDW 12.7 12.6 (12.0-15.0) % Plt Count 303 267 (130-450) 10^3/uL MPV 9.2 9.3 (7.4-11.4) fL Neut # (Auto) 6.6 7.3 H (1.5-6.6) 10^3/uL Lymph # (Auto) 1.4 L 1.4 L (1.5-3.5) 10^3/uL Boyd # (Auto) 0.7 0.8 (0.0-1.0) 10^3/uL Eos # (Auto) 0.8 H 0.9 H (0.0-0.7) 10^3/uL Baso # (Auto) 0.1 0.1 (0.0-0.1) 10^3/uL Absolute Nucleated RBC 0.00 0.00 x10^3/uL Nucleated RBC % 0.0 0.0 /100WBC Sodium 138 (135-145) mmol/L Potassium 3.7 (3.5-5.0) mmol/L Chloride 107 (101-111) mmol/L Carbon Dioxide 22 (21-32) mmol/L Anion Gap 9.0 (6-13) BUN 11 (6-20) mg/dL Creatinine 1.2 (0.6-1.2) mg/dL Estimated GFR (MDRD) 60 L (>89) Glucose 135 H (70-100) mg/dL Calcium 8.3 L (8.5-10.3) mg/dL ABX Reporting Has patient been on IV antibiotics over the past 48 hours?: Yes Sepsis Event Note (H) - Evaluation Current Stage of Sepsis: Sepsis Assessment/Plan - Problem List (1) Perforated small intestine Impression: pt had Exploratory laparotomy, and Evacuation and takedown of abdominal absce ss, largest per surgeon's report. pt had antibiotics until yesterday but stop. Per surgeon's notes, we will restart antibiotics meropenem, Continue consult with wound care, continue follow-up with surgeon, Continue pain control, continue physical therapy through occupational therapist. Patient tolerated low fiber diet, we will continue. Nurse report patient had bleeding in the surgical site, when assessed patient pt's surgery site was packed and dress is clean, no acute bleeding was vision. surgeon was called by nurse and will see pt. Hold patient home aspirin, Lovenox, order CBC, and H&H (2) HTN (hypertension) Impression: pt has slight elevated BP. pt's home meds is reconciled until today. resume home Lisinopril, increase his dose to 10 mg daily. Continue vital signs monitoring (3) Hypothyroidism Impression: Patient TSH is high, he takes 100 mcg daily, it was increased to112 mcg daily now. follow-up 4 to 6-week with primary care continue management (4) Glaucoma Impression: Stable, already resumed home glaucoma medication
[2020-01-06] MEDS: MEROPENEM 1 GM in SODIUM CHLORIDE 0.9% MINIBAG 100 ML IV SCH (16:35)
--- NOTE | 2020-01-06 18:04 | PROVIDER PROGRESS NOTE ---
Subjective - Prog Note Date Prog Note Date: 01/06/20 - Subjective Pt reports feeling: Improved (tolerating diet well) Objective - Vital Signs/Intake & Output Vital Signs: Vital Signs x48h Temp Pulse Resp BP Pulse Ox 01/06/20 15:54 36.6 C 82 18 168/87 H 98 01/06/20 12:45 72 17 160/80 H 96 01/06/20 12:25 71 16 159/74 H 96 01/06/20 12:10 71 16 154/80 H 96 01/06/20 12:05 71 16 154/76 H 96 01/06/20 12:00 36.9 C 69 16 173/74 H 96 01/06/20 11:43 73 16 161/94 H 96 Intake & Output: Intake & Output 01/03/20 01/04/20 01/05/20 01/06/20 23:59 23:59 23:59 23:59 Intake Total 4653.001 3674.1657 4196.404 1840.596 Output Total 1770 4500 6295 2160 Balance 2883.001 -825.8343 -2098.596 -319.404 - Objective General Appearance: positive: No acute distress, Alert Eyes Bilateral: positive: PERRL, EOMI ENT: positive: No signs of dehydration Neck: positive: No JVD Respiratory: positive: No respiratory distress Abdomen: positive: Non-tender, Other (mild distension. no erythema. stoma pink. jps scant) Neurologic/Psychiatric: positive: Oriented x3 - Lab Results Fish Bones: 01/06/20 15:01 01/06/20 05:56 Other Labs: Lab Results x24hrs 01/06/20 01/06/20 01/06/20 Range/Units 15:01 05:56 05:56 WBC 10.1 10.8 (4.8-10.8) x10^3/uL RBC 4.57 L 4.09 L (4.70-6.10) 10^6/uL Hgb 14.2 13.0 L (14.0-18.0) g/dL Hct 44.1 39.6 L (42.0-52.0) % MCV 96.5 H 96.8 H (80.0-94.0) fL MCH 31.1 H 31.8 H (27.0-31.0) pg MCHC 32.2 32.8 (32.0-36.0) g/dL RDW 12.7 12.6 (12.0-15.0) % Plt Count 303 267 (130-450) 10^3/uL MPV 9.2 9.3 (7.4-11.4) fL Neut # (Auto) 6.6 7.3 H (1.5-6.6) 10^3/uL Lymph # (Auto) 1.4 L 1.4 L (1.5-3.5) 10^3/uL Dooly # (Auto) 0.7 0.8 (0.0-1.0) 10^3/uL Eos # (Auto) 0.8 H 0.9 H (0.0-0.7) 10^3/uL Baso # (Auto) 0.1 0.1 (0.0-0.1) 10^3/uL Absolute Nucleated RBC 0.00 0.00 x10^3/uL Nucleated RBC % 0.0 0.0 /100WBC Sodium 138 (135-145) mmol/L Potassium 3.7 (3.5-5.0) mmol/L Chloride 107 (101-111) mmol/L Carbon Dioxide 22 (21-32) mmol/L Anion Gap 9.0 (6-13) BUN 11 (6-20) mg/dL Creatinine 1.2 (0.6-1.2) mg/dL Estimated GFR (MDRD) 60 L (>89) Glucose 135 H (70-100) mg/dL Calcium 8.3 L (8.5-10.3) mg/dL Sepsis Event Note (H) - Evaluation Current Stage of Sepsis: Sepsis Assessment/Plan - Problem List (1) Ileus Impression: improving after a very significant inflammatory process within his abdomen with significant purulence, rupture/ gangrenous appendix and significant inflammatory response/ exudate involving his cecum and descending colon path pending continue present care
[2020-01-06] MEDS: LATANOPROST 0.005% OPHTH DROPS EACHEYE SCH (21:12)
[2020-01-06 21:59] LABS: HGB - HEMOGLOBIN 12.8 g/dL (14.0-18.0)
[2020-01-07] MEDS: SODIUM CHLORIDE FLUSH 0.9% 10 ML SYRINGE IVP SCH ×3 (00:30→16:43)
[2020-01-07] MEDS: methocarbamoL 500 MG TABLET PO SCH ×4 (00:42→17:10)
[2020-01-07] MEDS: oxyCODONE 5 MG TABLET PO PRN (00:42)
[2020-01-07] MEDS: METOCLOPRAMIDE 10 MG/2 ML VIAL IVP SCH ×4 (00:44→16:58)
[2020-01-07] MEDS: KETOROLAC 30 MG/ML VIAL IVP SCH ×3 (00:54→11:45)
[2020-01-07] MEDS: ENALAPRILAT 1.25 MG/ML VIAL IVP SCH ×2 (00:54→06:10)
[2020-01-07] MEDS: SODIUM CHLORIDE FLUSH 0.9% 10 ML SYRINGE IVP PRN ×5 (00:56→06:16)
[2020-01-07] MEDS: MEROPENEM 1 GM in SODIUM CHLORIDE 0.9% MINIBAG 100 ML IV SCH ×3 (00:57→16:40)
[2020-01-07] MEDS: D5NS W/20 MEQ KCL 1,000 ML IV SCH (02:48)
[2020-01-07] MEDS ORDERED: SODIUM CHLORIDE FLUSH 0.9% 10 ML SYRINGE IVP PRN (05:51)
[2020-01-07 06:02] LABS: BASOPHILS % (AUTO) 0.8 %; HGB - HEMOGLOBIN 12.6 g/dL (14.0-18.0); LYMPHOCYTES % (AUTO) 14.2 %; MEAN CORPUSCULAR HEMOGLOBIN 30.7 pg (27.0-31.0); MEAN CORPUSCULAR HGB CONC 31.7 g/dL (32.0-36.0); MEAN CORPUSCULAR VOLUME 96.8 fL (80.0-94.0); MEAN PLATELET VOLUME 9.1 fL (7.4-11.4); MONOCYTES % (AUTO) 6.4 %; NEUTROPHILS % (AUTO) 66.2 %; PLT - PLATELET COUNT 315 10^3/uL (130-450); RED CELL DISTRIBUTION WIDTH 12.7 % (12.0-15.0); WHITE BLOOD COUNT 11.9 x10^3/uL (4.8-10.8)
[2020-01-07] MEDS: PANTOPRAZOLE 40 MG VIAL IVP SCH (06:04)
[2020-01-07 06:10] LABS: ABNORMAL LYMPHS % (MANUAL) 0 %; BAND NEUTROPHILS % (MANUAL) 0 %
[2020-01-07 06:18] LABS: CALCIUM 8.5 mg/dL (8.5-10.3); CREATININE 1.2 mg/dL (0.6-1.2); PHOSPHORUS 3.6 mg/dL (2.5-4.6)
[2020-01-07 06:32] LABS: EOSINOPHILS # (MANUAL) 0.4 10^3/uL (0-0.7); LYMPHOCYTES % (MANUAL) 17 %; METAMYELOCYTES % (MANUAL) 1 %; MONOCYTES # (MANUAL) 1.4 10^3/uL (0.0-1.0); MYELOCYTES % (MANUAL) 2 %
[2020-01-07 06:33] LABS: DIFFERENTIAL COMMENT MANUAL DIFFERENTIAL; PLATELET ESTIMATE, MANUAL NORMAL (130-450,000) (NORMAL); RBC MORPHOLOGY (MULTIPLE) NORMAL APPEARANCE (NORMAL)
[2020-01-07] MEDS ORDERED: LEVOTHYROXINE 112 MCG TABLET PO SCH (07:00)
[2020-01-07] MEDS: BRIMONIDINE 0.2% OPHTH DROPS 5 ML EACHEYE SCH (08:52)
[2020-01-07] MEDS: DORZOLAMIDE/TIMOLOL OPHTH DROPS EACHEYE SCH (08:53)
[2020-01-07] MEDS ORDERED: lisinopriL 20 MG TABLET PO SCH (09:00)
[2020-01-07] MEDS ORDERED: ENOXAPARIN 40 MG/0.4 ML SYRINGE SUBQ SCH (09:00)
[2020-01-07] MEDS ORDERED: ASPIRIN CHEW 81 MG TABLET PO SCH (09:00)
[2020-01-07] MEDS ORDERED: amLODIPine 5 MG TABLET PO SCH (09:00)
[2020-01-07] MEDS: ACETAMINOPHEN 325 MG TABLET PO PRN (09:13)
[2020-01-07 15:02] LABS: BASOPHILS % (AUTO) 0.7 %; EOSINOPHILS % (AUTO) 7.6 %; HGB - HEMOGLOBIN 13.3 g/dL (14.0-18.0); LYMPHOCYTES % (AUTO) 13.2 %; MEAN CORPUSCULAR HEMOGLOBIN 32.2 pg (27.0-31.0); MEAN CORPUSCULAR HGB CONC 33.3 g/dL (32.0-36.0); MEAN CORPUSCULAR VOLUME 96.6 fL (80.0-94.0); MEAN PLATELET VOLUME 9.1 fL (7.4-11.4); MONOCYTES % (AUTO) 6.2 %; NEUTROPHILS % (AUTO) 66.4 %; PLT - PLATELET COUNT 339 10^3/uL (130-450); RED BLOOD COUNT 4.13 10^6/uL (4.70-6.10); RED CELL DISTRIBUTION WIDTH 12.8 % (12.0-15.0)
[2020-01-07 15:08] LABS: ABNORMAL LYMPHS % (MANUAL) 0 %
[2020-01-07 15:17] LABS: BAND NEUTROPHILS % (MANUAL) 2 %; DIFFERENTIAL COMMENT MANUAL DIFFERENTIAL; EOSINOPHILS # (MANUAL) 0.6 10^3/uL (0-0.7); LYMPHOCYTES # (MANUAL) 1.6 10^3/uL (1.5-3.5); LYMPHOCYTES % (MANUAL) 13 %; MONOCYTES # (MANUAL) 0.6 10^3/uL (0.0-1.0); PLATELET ESTIMATE, MANUAL NORMAL (130-450,000) (NORMAL); PLATELET MORPHOLOGY NORMAL APPEARANCE (NORMAL); RBC MORPHOLOGY (MULTIPLE) NORMAL APPEARANCE (NORMAL)
[2020-01-07 17:02] VITALS: BP 158/82
--- NOTE | 2020-01-07 17:25 | Discharge Plan ---
Discharge Plan Problem Reviewed?: Yes Disposition: Home Health Service Condition: Good Prescriptions: Hydrocodone/Acetaminophen [Hydrocodone-Acetamin 5-325 mg] 1 each PO Q6HR PRN #25 tablet PRN Reason: Abdominal Pain Amox/Clav 875/125 [Augmentin] 1 each PO Q12H 5 Days #10 tablet Diet: Regular Activity Restrictions: No Restrictions Shower Restrictions: No Driving Restrictions: No No Smoking: If you smoke, Please STOP! Call for help. Follow-up with: Dwayne Ibanez MD [Provider Admit Priv/Credential] -
--- NOTE | 2020-01-07 17:29 | DISCHARGE SUMMARY ---
"Discharge Summary Admit Date: 01/01/20 Discharge Date: 01/07/20 Discharging Provider: chuy ibanez md Code Status: Attempt Resuscitation Discharge Disposition: Home Health Service - DIAGNOSES Admission Diagnoses: abdominal sepsis perforated appendix with surrounding significant inflammatory response - HPI History of Present Illness: Presented with perforated viscous. Surgery 01/02/2020 right colon resection with appendix, mid descending colon resection with anastomosis and diverting ileostomy - CONSULTS | PROCEDURES Procedures: as above wound care antibiotics davis - HOSPITAL COURSE Hospital Course: bowel function quickly returned. Home 01/06 in good condition, tolerating diet well and understanding dressing and stoma care well - ALLERGIES Allergies/Adverse Reactions: Allergies Allergy/AdvReac Type Severity Reaction Status Date / Time Mvyosef-Ewz-Sif Reductase AdvReac Intermediate Cramps Verified 01/07/20 08:55 Inhibitor - MEDICATIONS Home Medications: Ambulatory Orders Medication Instructions Recorded Confirmed Brimonidine 0.2% Ophth Drops 1 drops EACHEYE BID 01/01/20 01/02/20 [Alphagan P 0.2% Ophth Drops] Dorzolamide HCl/Timolol Maleat 1 drops EACHEYE BID 01/01/20 01/02/20 [Dorzolamide-Timolol Eye Drops] Latanoprost 0.005% Ophth Drops 1 drops EACHEYE QPM 01/01/20 01/02/20 [Xalatan Ophth Drops] Aspirin Chewable [St Lj 81 mg PO DAILY 01/02/20 01/02/20 Aspirin] Allopurinol [Zyloprim] 300 mg PO DAILY 01/06/20 01/06/20 Ezetimibe [Zetia] 10 mg PO DAILY 01/06/20 01/06/20 Levothyroxine [Synthroid] 100 mcg PO QDAC 01/06/20 01/06/20 Lisinopril [Prinivil] 5 mg PO DAILY 01/06/20 01/06/20 Amox/Clav 875/125 [Augmentin] 1 each PO Q12H 5 Days #10 tablet 01/07/20 Hydrocodone/Acetaminophen 1 each PO Q6HR PRN #25 tablet 01/07/20 [Hydrocodone-Acetamin 5-325 mg] - PHYSICAL EXAM AT DISCHARGE General Appearance: positive: No acute distress, Alert Eyes Bilateral: positive: Normal inspection, PERRL, EOMI ENT: positive: No signs of dehydration Neck: positive: No JVD Respiratory: positive: No respiratory distress Abdomen: positive: Non-tender, No distention, Other (drains removed and dressing changed) Neurologic/Psychiatric: positive: Oriented x3 - LABS Result Diagrams: 01/07/20 14:45 01/07/20 05:50 - SEPSIS Current Stage of Sepsis: Sepsis - FOLLOW UP Follow Up: Dr Ibanez please call to make an appointment [phone]"
== END 2020-01-07 19:00 | disposition home health service (06) | DRG 331 ==
LOC: ED 10:19 → MS2 15:51
PROVIDERS: ADMIT Surgery; ATTEND Surgery
PROC: 0D1B0Z4 Bypass Ileum to Cutaneous, Open Approach (ICD-10-PCS; 2020-01-02)
PROC: 0DBM0ZZ Excision of Descending Colon, Open Approach (ICD-10-PCS; 2020-01-02)
PROC: 0DBN0ZZ Excision of Sigmoid Colon, Open Approach (ICD-10-PCS; 2020-01-02)
PROC: 0DBK0ZZ Excision of Ascending Colon, Open Approach (ICD-10-PCS; principal; 2020-01-02 14:00)
PROC: 0DB80ZZ Excision of Small Intestine, Open Approach (ICD-10-PCS; 2020-01-02 14:00)
PROC: 02HV33Z Insertion of Infusion Device into Superior Vena Cava, Percutaneous Approach (ICD-10-PCS; 2020-01-05)
DX: K35.21 Acute appendicitis with generalized peritonitis, with abscess (principal); K66.0 Peritoneal adhesions (postprocedural) (postinfection); I10 Essential (primary) hypertension; G47.30 Sleep apnea, unspecified; E03.9 Hypothyroidism, unspecified; H54.7 Unspecified visual loss; H91.90 Unspecified hearing loss, unspecified ear; K42.9 Umbilical hernia without obstruction or gangrene; Z86.73 Personal history of transient ischemic attack (TIA), and cerebral infarction without residual deficits
CPT/HCPCS: 36415; 74177; 80048; 80053; 80202; 81001; 82607; 83690; 83735; 84100; 84443; 85014; 85018; 85025; 86140; 88307; 93005; 96365; 96367; 96375; 96376; 99285; A9270; C1751; J0131; J0330; J1650; J2185; J2765; J3370; J7040; J7120; Q9967; 71045; 81003; 87086

== ENCOUNTER 2020-01-15 14:31 | Inpatient (IN) | payer OTHER ==
[2020-01-15] MEDS ORDERED: SODIUM CHLORIDE 0.9% 1,000 ML IV STA ×2 (15:00)
[2020-01-15 15:17] LABS: BASOPHILS # (AUTO) 0.1 10^3/uL (0.0-0.1); BASOPHILS % (AUTO) 0.8 %; EOSINOPHILS # (AUTO) 0.4 10^3/uL (0.0-0.7); EOSINOPHILS % (AUTO) 2.8 %; HGB - HEMOGLOBIN 13.6 g/dL (14.0-18.0); LYMPHOCYTES # (AUTO) 1.3 10^3/uL (1.5-3.5); LYMPHOCYTES % (AUTO) 8.7 %; MEAN CORPUSCULAR HGB CONC 35.1 g/dL (32.0-36.0); MEAN CORPUSCULAR VOLUME 91.3 fL (80.0-94.0); MEAN PLATELET VOLUME 9.6 fL (7.4-11.4); MONOCYTES # (AUTO) 0.7 10^3/uL (0.0-1.0); MONOCYTES % (AUTO) 4.7 %; NEUTROPHILS % (AUTO) 82.5 %; PLT - PLATELET COUNT 628 10^3/uL (130-450); RED BLOOD COUNT 4.25 10^6/uL (4.70-6.10); RED CELL DISTRIBUTION WIDTH 11.9 % (12.0-15.0); WHITE BLOOD COUNT 14.6 x10^3/uL (4.8-10.8)
[2020-01-15 15:32] LABS: ALBUMIN 4.3 g/dL (3.2-5.5); ALBUMIN/GLOBULIN RATIO 1.1 (1.0-2.2); CREATININE 4.2 mg/dL (0.6-1.2); TOTAL PROTEIN 8.1 g/dL (6.7-8.2)
[2020-01-15] MEDS ORDERED: ACETAMINOPHEN 325 MG TABLET PO PRN (15:52)
[2020-01-15] MEDS ORDERED: SODIUM CHLORIDE FLUSH 0.9% 10 ML SYRINGE IVP PRN (15:52)
[2020-01-15] MEDS ORDERED: ONDANSETRON 4 MG/2 ML VIAL IVP PRN (15:52)
--- NOTE | 2020-01-15 15:53 | ED Physician Documentation ---
History of Present Illness - Stated complaint Stated Complaint: FAINT - Chief complaint Chief Complaint: General - History obtained from History obtained from: Patient, Family - History of Present Illness Timing: Today Pain level max: 0 Pain level now: 0 - Additonal information Additional information: 69-year-old male is status post a diverting ileostomy recently. He states he was feeling well a few days ago. He states that he had a syncopal event last night and this morning. Came in for evaluation. Feels weak and dehydrated. Nothing makes it better or worse. No chest pain. No shortness of breath. No head injury. No neck or back pain. No altered mental status. Patient is here with family Review of Systems Ten Systems: 10 systems reviewed and negative Constitutional: denies: Fever, Chills Ears: denies: Ear pain Nose: denies: Rhinorrhea / runny nose, Congestion Respiratory: denies: Cough GI: denies: Abdominal Pain, Nausea, Vomiting, Diarrhea Skin: denies: Rash Musculoskeletal: denies: Neck pain, Back pain Neurologic: denies: Headache PD PAST MEDICAL HISTORY - Past Medical History Past Medical History: Yes Cardiovascular: Hypertension Respiratory: Sleep apnea Neuro: None Endocrine/Autoimmune: HyPOthyroidism GI: Colon polyps : None HEENT: Chronic vision loss, Chronic hearing loss Psych: None Musculoskeletal: Gout Derm: None - Past Surgical History Past Surgical History: Yes Cardiovascular: Vascular surgery (Apr 2019 [facility]) HEENT: Other - Present Medications Home Medications: Ambulatory Orders Medication Instructions Recorded Confirmed Brimonidine 0.2% Ophth Drops 1 drops EACHEYE BID 01/01/20 01/02/20 [Alphagan P 0.2% Ophth Drops] Dorzolamide HCl/Timolol Maleat 1 drops EACHEYE BID 01/01/20 01/02/20 [Dorzolamide-Timolol Eye Drops] Latanoprost 0.005% Ophth Drops 1 drops EACHEYE QPM 01/01/20 01/02/20 [Xalatan Ophth Drops] Aspirin Chewable [St Lj 81 mg PO DAILY 01/02/20 01/02/20 Aspirin] Allopurinol [Zyloprim] 300 mg PO DAILY 01/06/20 01/06/20 Ezetimibe [Zetia] 10 mg PO DAILY 01/06/20 01/06/20 Levothyroxine [Synthroid] 100 mcg PO QDAC 01/06/20 01/06/20 Lisinopril [Prinivil] 5 mg PO DAILY 01/06/20 01/06/20 Amox/Clav 875/125 [Augmentin] 1 each PO Q12H 5 Days #10 tablet 01/07/20 Hydrocodone/Acetaminophen 1 each PO Q6HR PRN #25 tablet 01/07/20 [Hydrocodone-Acetamin 5-325 mg] - Allergies Allergies/Adverse Reactions: Allergies Allergy/AdvReac Type Severity Reaction Status Date / Time [id number] Reductase AdvReac Intermediate Cramps Verified 01/15/20 14:35 Inhibitor - Social History Does the pt smoke?: No Smoking Status: Never smoker Does the pt drink ETOH?: Yes Does the pt have substance abuse?: No - Immunizations Immunizations are current?: Yes - POLST Patient has POLST: Yes PD ED PE NORMAL - Vitals Vital signs reviewed: Yes - General General: Alert and oriented X 3, No acute distress - HEENT HEENT: PERRL, Other (Dry lips and tongue) - Neck Neck: Supple, no meningeal sign - Cardiac Cardiac: RRR, Strong equal pulses - Respiratory Respiratory: No respiratory distress, Clear bilaterally - Abdomen Abdomen: Soft, Non tender, Non distended, Other (Ileostomy in the right side of the abdomen. Draining dark fluid) - Derm Derm: Warm and dry - Extremities Extremities: No edema, No calf tenderness / cord - Neuro Neuro: Alert and oriented X 3 - Psych Psych: Normal mood, Normal affect Results - Vitals Vitals: Vital Signs - 24 hr 01/15/20 01/15/20 14:36 15:00 Temperature 36.5 C Heart Rate 50 L 62 Respiratory 16 16 Rate Blood Pressure 107/57 L 116/65 O2 Saturation 99 98 Oxygen O2 Source Room air - Labs Labs: Laboratory Tests 01/15/20 01/15/20 01/15/20 15:08 15:08 15:30 WBC 14.6 H RBC 4.25 L Hgb 13.6 L Hct 38.8 L MCV 91.3 MCH 32.0 H MCHC 35.1 RDW 11.9 L Plt Count 628 H MPV 9.6 Neut # (Auto) 12.0 H Lymph # (Auto) 1.3 L Newberry # (Auto) 0.7 Eos # (Auto) 0.4 Baso # (Auto) 0.1 Absolute Nucleated RBC 0.00 Nucleated RBC % 0.0 Sodium 121 L Potassium 5.8 H Chloride 89 L Carbon Dioxide 16 L Anion Gap 16.0 H BUN 80 H* Creatinine 4.2 H Estimated GFR (MDRD) 14 L Glucose 123 H Calcium 9.0 Total Bilirubin 1.0 AST 44 H ALT 74 H Alkaline Phosphatase 181 H Total Protein 8.1 Albumin 4.3 Globulin 3.8 Albumin/Globulin Ratio 1.1 Lipase 96 H Urine Color Cancelled Urine Clarity Cancelled Urine pH Cancelled Ur Specific [place] Cancelled Urine Protein Cancelled Urine Glucose (UA) Cancelled Urine Ketones Cancelled Urine Occult Blood Cancelled Urine Nitrite Cancelled Urine Bilirubin Cancelled Urine Urobilinogen Cancelled Ur Leukocyte Esterase Cancelled Urine RBC Cancelled Urine WBC Cancelled Urine WBC Clumps Cancelled Ur Epithelial Cells Cancelled Ur Squamous Epith Cells Cancelled Urine Crystals Cancelled Amorphous Sediment Cancelled Urine Bacteria Cancelled Urine Casts Cancelled Urine Starch Cancelled Urine Mucus Cancelled Urine Trichomonas Cancelled Urine Yeast Cancelled Urine Sperm Cancelled Ur Oval Fat Bodies Cancelled Urine Culture Comments Cancelled 01/15/20 15:30 WBC RBC Hgb Hct MCV MCH MCHC RDW Plt Count MPV Neut # (Auto) Lymph # (Auto) Newberry # (Auto) Eos # (Auto) Baso # (Auto) Absolute Nucleated RBC Nucleated RBC % Sodium Potassium Chloride Carbon Dioxide Anion Gap BUN Creatinine Estimated GFR (MDRD) Glucose Calcium Total Bilirubin AST ALT Alkaline Phosphatase Total Protein Albumin Globulin Albumin/Globulin Ratio Lipase Urine Color YELLOW Urine Clarity CLEAR Urine pH 5.5 Ur Specific [place] 1.015 Urine Protein NEGATIVE Urine Glucose (UA) NEGATIVE Urine Ketones NEGATIVE Urine Occult Blood TRACE-LYSE Urine Nitrite NEGATIVE Urine Bilirubin NEGATIVE Urine Urobilinogen 0.2 (NORMAL) Ur Leukocyte Esterase NEGATIVE Urine RBC Urine WBC Urine WBC Clumps Ur Epithelial Cells Ur Squamous Epith Cells Urine Crystals Amorphous Sediment Urine Bacteria Urine Casts Urine Starch Urine Mucus Urine Trichomonas Urine Yeast Urine Sperm Ur Oval Fat Bodies Urine Culture Comments PD MEDICAL DECISION MAKING - ED course Complexity details: reviewed old records, reviewed results, re-evaluated patient, considered differential, d/w patient, d/w family, d/w cognos consultant ED course: Patient with acute renal failure, hyperkalemia, hyponatremia, uremia. Likely secondary to dehydration from ileostomy output. Discussed the case with Dr. Gold, hospitalist who accepts. Also discussed with Dr. Carpenter, general surgery who will come and consult on the patient. This document was made in part using voice recognition software. While efforts are made to proofread this document, sound alike and grammatical errors may occur. Departure - Departure Disposition: 66 [facility] DC/Xfer Clinical Impression: Hyponatremia, Dehydration, Hyperkalemia Acute renal failure Qualifiers: Acute renal failure type: unspecified Qualified Code(s): N17.9 - Acute kidney failure, unspecified Condition: Stable Discharge Date/Time: 01/15/20 16:42
[2020-01-15] MEDS ORDERED: LACTATED RINGERS 1,000 ML IV ONE (15:54)
--- NOTE | 2020-01-15 15:58 | HISTORY & PHYSICAL EXAMINATION ---
Chief Complaint - Chief Complaint Chief Complaint: Feeling faint History of Present Illness - Admitted From Admitted From:: Home - History Obtained From Records Reviewed: Yes History obtained from: Patient, Daughter, ER Physician, EMR - History of Present Illness HPI Comment/Other: This is a 69-year-old male with a past medical history significant for hypertension, hypothyroidism who presents today after feeling faint and lightheaded. He was admitted on December 31 for perforated viscus and underwent a right colon resection in mid ascending colon resection with anastomosis and diverting ileostomy. He was discharged on January 06. States had been doing well postoperatively except for a large amount of output from the ileostomy. He was treating the bag up to 7 or 8 times a day. He then began taking Imodium and he was changing the bag only 5-6 times a day. He was seen at the general surgery office today and was referred to the emergency department after he was complaining of feeling faint and lightheaded. He states his symptoms began this morning at around 3 AM and he felt like he was dehydrated. He reports good oral intake over the past few days although he has had very minimal intake today. He reports no nausea or vomiting. Denies any abdominal pain. He has noticed decreased urine output over the past 2 days. He denies metallic taste in his mouth. He is taking lisinopril for hypertension. Reports no fevers, chills, chest pain, dyspnea. In the emergency department, he was found to be afebrile with a temperature of 36.5 C. His heart is in the 50s and a sinus rhythm. His blood pressure initially 107/57. He was not tachypneic and saturating well on room air. Labs were significant for a white count of 14.6, platelet count of 628, sodium of 121, potassium of 5.8, BUN of 80, and a creatinine of 4.2. His LFTs were also mildly elevated. He had an EKG performed shows sinus rhythm with diffuse ST elevations. He was given a liter of normal saline in the emergency department. Given the above findings, medicine was consulted for admission. I did discuss goals of care with the patient and he would like to be a full code. History - Past Medical History Cardiovascular: reports: Hypertension Respiratory: reports: Sleep apnea Neuro: reports: None Endocrine/Autoimmune: reports: HyPOthyroidism GI: reports: Colon polyps : reports: None HEENT: reports: Chronic vision loss, Chronic hearing loss Psych: reports: None Musculoskeletal: reports: Gout Derm: reports: None MRSA Hx?: No - Past Surgical History General: reports: Bowel surgery (He underwent right colon resection with appendix, mid descending colon resection with anastomosis and diverting ile ostomy in December 2019.) Cardiovascular: reports: Vascular surgery (Apr 2019 [facility]) HEENT: reports: Other - Family & Social History Family History Comment/Other: He reports his father had renal cancer. He was a smoker. Living arrangement: At home Living Situation: With family Social History Notes: He lives at home with his daughter and her partner. He normally spends time in [place] but he was here visiting his mother as she was at the end of her life when she passed earlier this year. His unfortunately is stuck and [place] as the borders are closed due to the coronavirus pandemic. He is a non-smoker. He has not drank alcohol recently. - POLST Patient has POLST: Yes Meds/Allgy - Home Medications Home Medications: Ambulatory Orders Medication Instructions Recorded Confirmed Brimonidine 0.2% Ophth Drops 1 drops EACHEYE BID 01/01/20 01/02/20 [Alphagan P 0.2% Ophth Drops] Dorzolamide HCl/Timolol Maleat 1 drops EACHEYE BID 01/01/20 01/02/20 [Dorzolamide-Timolol Eye Drops] Latanoprost 0.005% Ophth Drops 1 drops EACHEYE QPM 01/01/20 01/02/20 [Xalatan Ophth Drops] Aspirin Chewable [St Lj 81 mg PO DAILY 01/02/20 01/02/20 Aspirin] Allopurinol [Zyloprim] 300 mg PO DAILY 01/06/20 01/06/20 Ezetimibe [Zetia] 10 mg PO DAILY 01/06/20 01/06/20 Levothyroxine [Synthroid] 100 mcg PO QDAC 01/06/20 01/06/20 Lisinopril [Prinivil] 5 mg PO DAILY 01/06/20 01/06/20 Amox/Clav 875/125 [Augmentin] 1 each PO Q12H 5 Days #10 tablet 01/07/20 Hydrocodone/Acetaminophen 1 each PO Q6HR PRN #25 tablet 01/07/20 [Hydrocodone-Acetamin 5-325 mg] - Allergies Allergies/Adverse Reactions: Allergies Allergy/AdvReac Type Severity Reaction Status Date / Time [id number]-[id number] Reductase AdvReac Intermediate Cramps Verified 01/15/20 14:35 Inhibitor Review of Systems - Constitutional Constitutional: reports: Fatigue, Weakness, Poor appetite. denies: Fever, Chi lls - Ears, Nose & Throat Ears, Nose & Throat: denies: Nasal discharge, Postnasal drainage, Sore throat - Cardiovascular Cariovascular: reports: Lightheadedness. denies: Chest pain, Edema, Syncope, Exertional dyspnea, Decr. exercise tolerance - Respiratory Respiratory: denies: Cough, SOB at rest, SOB with exertion - Gastrointestinal Gastrointestinal: reports: Diarrhea. denies: Abdominal pain, Change in bowel habits, Bloody stools, Nausea, Vomiting - Genitourinary Genitourinary: reports: Other (Decreased urine output.). denies: Dysuria, Frequency, Urgency, Hematuria - Musculoskeletal Musculoskeletal: denies: Muscle pain, Muscle weakness - Integumentary Integumentary: denies: Rash - Neurological Neurological: reports: General weakness, Dizziness. denies: Focal weakness - All Other Systems All Other Systems: reports: Reviewed and negative Prior Level of Functionality: He is independent with his ADLs. Exam - Vital Signs Reviewed Vital Signs: Yes Vital Signs: Vital Signs x48h Temp Pulse Resp BP Pulse Ox 01/15/20 15:00 62 16 116/65 98 01/15/20 14:36 36.5 C 50 L 16 107/57 L 99 - Physical Exam General Appearance: positive: No acute distress, Alert Eyes Bilateral: positive: Normal inspection, Conjunctivae nml ENT: positive: Dry mucous membranes. negative: No signs of dehydration Neck: positive: Nml inspection Respiratory: positive: No respiratory distress. negative: Wheezes, Rales Cardiovascular: positive: Regular rate & rhythm, No murmur. negative: Extrasystoles, Tachycardia, Systolic murmur, Diastolic murmur Abdomen: positive: Non-tender, No distention, Other (Ileostomy with dark liquid output. Dressing is in place over the abdomen. No tenderness.). negative: Tenderness, Guarding, Rebound Skin: positive: Warm, Dry Extremities: positive: Full ROM, No pedal edema Neurologic/Psychiatric: positive: Oriented x3, Motor nml. negative: Disoriented to person, Disoriented to place, Disoriented to time Conclusion/Plan - Problem List (1) Acute renal failure Conclusion/Plan: This is likely prerenal injury due to dehydration. His BUN is elevated in the 80s and his creatinine is 4.2. We will continue to hydrate him with lactated Ringer's. We will check a renal ultrasound to rule out obstruction. Check ur inalysis and urine sodium. Repeat BMP this evening. Hold lisinopril. Avoid nephrotoxins. Monitor urine output. Qualifiers: Acute renal failure type: unspecified Qualified Code(s): N17.9 - Acute kidney failure, unspecified (2) Status post colectomy Conclusion/Plan: He is status post colectomy with end ileostomy. He has had high output from the ileostomy and has been taking Imodium at home. Is likely the cause of his dehydration. Given he had been on antibiotics during this hospitalization, we will check for C. difficile. This is negative then we will resume Imodium. Continue with IV hydration. Will consult general surgery and appreciate their input. (3) Hyponatremia Conclusion/Plan: This is likely hypovolemic hyponatremia. His serum is decreased at 121. This should improve with IV fluids. Recheck BMP this evening. Check urine sodium. (4) Abnormal EKG Conclusion/Plan: EKG reveals diffuse ST elevations but he does not have any chest pain. This could be related to his acute renal failure. No obvious pericardial rub on exam. We will check a troponin and obtain an echocardiogram. (5) Hyperkalemia Conclusion/Plan: This is secondary to the acute renal failure. There are no EKG changes from the hyperkalemia. This should improve with IV hydration. We will recheck a BMP this evening. If it is still elevated, we will treat him with insulin and dex trose. (6) Glaucoma Conclusion/Plan: Stable. Continue home eyedrops. (7) Hypothyroidism Conclusion/Plan: Stable. Continue Synthroid. - Lab Results Lab results reviewed: Yes Fish Bones: 01/15/20 15:08 01/15/20 15:08 - Diagnostic Imaging Results Diagnostic Imaging Results: positive: Final report reviewed - EKG Results EKG Interpreted Independently: Yes EKG Comparison: Changed from prior EKG EKG Findings: EKG reveals a sinus rhythm with diffuse ST segment elevations. These are new compared to prior EKG. Core Measures - Anticipated LOS I expect patient to be DC'd or transferred within 96 hours.: Yes - Issues Hospital Issues and Management Plan: 69-year-old male who underwent colectomy with ileostomy earlier this month presents with acute renal failure likely due to high output ostomy. We will hydrate him with IV fluids and monitor his renal function. - DVT/VTE - Prophylaxis VTE/DVT Device ordered at admit?: Yes VTE/DVT Prophylaxis med ordered at admit?: Yes
[2020-01-15] MEDS ORDERED: FLU VACC QS2020-21(6MOS UP)/PF 60 MCG/0.5 ML SYRINGE IM ONE ×2 (17:03→19:00)
[2020-01-15] MEDS: SODIUM CHLORIDE FLUSH 0.9% 10 ML SYRINGE IVP SCH (17:26)
--- NOTE | 2020-01-15 17:36 | XRAY Report ---
PROCEDURE: Chest 1 View X-Ray INDICATIONS: Abnormal EKG. Dizziness. TECHNIQUE: One view of the chest was acquired. COMPARISON: 01/05/2020 FINDINGS: Surgical changes and devices: Previously noted right upper extremity PICC has been removed.. Lungs and pleura: No pleural effusions or pneumothorax. Lungs are clear. Mediastinum: Mediastinal contours appear normal. Heart size is normal. Bones and chest wall: No suspicious bony lesions. Overlying soft tissues appear unremarkable. IMPRESSION: Chest without acute cardiopulmonary abnormalities. No focal airspace disease. Reviewed by: Faustino Menjivar MD on 01/15/2020 5:34 PM PDT Approved by: Faustino Menjivar MD on 01/15/2020 5:34 PM PDT Station ID: [id number]
[2020-01-15 18:10] LABS: BILIRUBIN,URINE NEGATIVE (NEGATIVE); CLARITY,URINE CLEAR (CLEAR); GLUCOSE, URINE (UA) NEGATIVE (NEGATIVE); KETONES,URINE (UA) NEGATIVE (NEGATIVE); LEUKOCYTE ESTERASE, URINE NEGATIVE (NEGATIVE); NITRITE,URINE NEGATIVE (NEGATIVE); OCCULT BLOOD,URINE TRACE-LYSE (NEGATIVE); PH,URINE 5.5 PH (5.0-7.5); PROTEIN,URINE NEGATIVE (NEGATIVE); UROBILINOGEN,URINE 0.2 (NORMAL) E.U./dL (NORMAL)
--- NOTE | 2020-01-15 18:22 | CONSULTATION NOTE ---
Referring Provider Name of Referring Provider:: Lan Gold Consult Date: 01/15/20 Chief Complaint - Chief Complaint Chief Complaint: Weakness and fainting History of Present Illness - Admitted From Admitted From:: ED - History of Present Illness HPI Comment/Other: He was admitted on December 31 for perforated viscus and underwent a right colon resection in mid ascending colon resection with anastomosis and diverting ileostomy. He was discharged on January 06. States had been doing well postoperatively except for a large amount of output from the ileostomy. He was treating the bag up to 7 or 8 times a day. He then began taking Imodium and he was changing the bag only 5-6 times a day. He was seen at the general surgery office today and was referred to the emergency department after he was complaining of feeling faint and lightheaded. He states his symptoms began this morning at around 3 AM and he felt like he was dehydrated. He reports good oral intake over the past few days although he has had very minimal intake today. He says his ostomy has been making about 2 liters of fluid per day and admits he has had difficulty keeping up. He hasn't really measured his fluid intake but realized he was getting behind about 4 days after getting home. He is accompanied by his daughter who is very supportive History - Past Medical History Cardiovascular: reports: Hypertension Respiratory: reports: Sleep apnea Neuro: reports: None Endocrine/Autoimmune: reports: HyPOthyroidism GI: reports: Colon polyps : reports: None HEENT: reports: Chronic vision loss, Chronic hearing loss Psych: reports: None Musculoskeletal: reports: Gout Derm: reports: None MRSA Hx?: No - Past Surgical History General: reports: Bowel surgery (He underwent right colon resection with appendix, mid descending colon resection with anastomosis and diverting ileostomy in December 2019.) Cardiovascular: reports: Vascular surgery (Apr 2019 [facility]) HEENT: reports: Other - Family & Social History Family History Comment/Other: He reports his father had renal cancer. He was a smoker. Living arrangement: At home Living Situation: With family Social History Notes: He lives at home with his daughter and her partner. He normally spends time in [place] but he was here visiting his mother as she was at the end of her life when she passed earlier this year. His unfortunately is stuck and [place] as the borders are closed due to the c oronavirus pandemic. He is a non-smoker. He has not drank alcohol recently. - POLST Patient has POLST: Yes Meds/Allgy - Home Medications Home Medications: Ambulatory Orders Medication Instructions Recorded Confirmed Brimonidine 0.2% Ophth Drops 1 drops EACHEYE BID 01/01/20 01/16/20 [Alphagan P 0.2% Ophth Drops] Dorzolamide HCl/Timolol Maleat 1 drops EACHEYE BID 01/01/20 01/16/20 [Dorzolamide-Timolol Eye Drops] Latanoprost 0.005% Ophth Drops 1 drops EACHEYE QPM 01/01/20 01/16/20 [Xalatan Ophth Drops] Aspirin Chewable [St Lj 81 mg PO DAILY 01/02/20 01/16/20 Aspirin] Allopurinol [Zyloprim] 300 mg PO DAILY 01/06/20 01/16/20 Ezetimibe [Zetia] 10 mg PO DAILY 01/06/20 01/16/20 Levothyroxine [Synthroid] 100 mcg PO QDAC 01/06/20 01/16/20 Lisinopril [Prinivil] 5 mg PO DAILY 01/06/20 01/16/20 - Allergies Allergies/Adverse Reactions: Allergies Allergy/AdvReac Type Severity Reaction Status Date / Time Zkjehog-[id number]-Lxq Reductase AdvReac Intermediate Cramps Verified 01/15/20 14:35 Inhibitor Review of Systems - Constitutional Constitutional: reports: Fatigue, Malaise, Weakness, Poor appetite, Diaphoresis, Weight loss - Eyes Eyes: denies: Pain, Irritation - Ears, Nose & Throat Ears, Nose & Throat: reports: Hearing loss, Tinnitus, Vertigo. denies: Nasal obstruction, Nasal congestion, Sore throat, Hoarseness - Cardiovascular Cariovascular: reports: Lightheadedness, Syncope, Exertional dyspnea, Decr. exe rcise tolerance. denies: Chest pain, Edema - Respiratory Respiratory: denies: Cough, Sputum production, Wheezing, Snoring - Gastrointestinal Gastrointestinal: reports: Diarrhea (Ostomy output). denies: Abdominal pain, Abdominal distention, Constipation - Genitourinary Genitourinary: reports: Dysuria, Frequency, Other (Noted significant decrease in urine production) - Integumentary Integumentary: denies: Rash - Neurological Neurological: reports: General weakness - Hematologic/Lymphatic Hematologic/Lymphatic: denies: Anemia - All Other Systems All Other Systems: reports: Reviewed and negative Exam - Vital Signs Reviewed Vital Signs: Yes Vital Signs: Vital Signs x48h Temp Pulse Pulse Resp BP BP Pulse Ox 01/15/20 17:00 36.7 C 64 18 138/60 H 99 01/15/20 16:00 58 L 15 130/69 100 01/15/20 15:00 62 16 116/65 98 01/15/20 14:36 36.5 C 50 L 16 107/57 L 99 - Physical Exam General Appearance: positive: No acute distress, Lethargic Eyes Bilateral: positive: Normal inspection, PERRL, EOMI ENT: positive: ENT inspection nml, Dry mucous membranes Neck: positive: No JVD, Trachea midline Respiratory: positive: No respiratory distress, Breath sounds nml Cardiovascular: positive: Regular rate & rhythm Peripheral Pulses: positive: 0 Abdomen: positive: Non-tender, No distention, Other (Ostomy is viable and working with thin green succus in the bag) Rectal: positive: Black stool Skin: positive: Color nml Extremities: positive: Non-tender Neurologic/Psychiatric: positive: Oriented x3 Conclusion and Plan - Lab Results Laboratory Results 01/15/20 17:30: Urine Sodium < 12.0 01/15/20 15:30: Urine Color YELLOW, Urine Clarity CLEAR, Urine pH 5.5, Ur Specific [place] 1.015, Urine Protein NEGATIVE, Urine Glucose (UA) NEGATIVE, Urine Ketones NEGATIVE, Urine Occult Blood TRACE-LYSE, Urine Nitrite NEGATIVE, Urine Bilirubin NEGATIVE, Urine Urobilinogen 0.2 (NORMAL), Ur Leukocyte Esterase NEGATIVE 01/15/20 15:30: Urine Color Cancelled, Urine Clarity Cancelled, Urine pH Cancelled, Ur Specific [place] Cancelled, Urine Protein Cancelled, Urine Glucose (UA) Cancelled, Urine Ketones Cancelled, Urine Occult Blood Cancelled, Urine Nitrite Cancelled, Urine Bilirubin Cancelled, Urine Urobilinogen Cancelled, Ur Leukocyte Esterase Cancelled, Urine RBC Cancelled, Urine WBC Cancelled, Urine WBC Clumps Cancelled, Ur Epithelial Cells Cancelled, Ur Squamous Epith Cells Cancelled, Urine Crystals Cancelled, Amorphous Sediment Cancelled, Urine Bacteria Cancelled, Urine Casts Cancelled, Urine Starch Cancelled, Urine Mucus Cancelled, Urine Trichomonas Cancelled, Urine Yeast Cancelled, Urine Sperm Cancelled, Ur Oval Fat Bodies Cancelled, Urine Culture Comments Cancelled 01/15/20 15:08: Sodium 121 L, Potassium 5.8 H, Chloride 89 L, Carbon Dioxide 16 L, Anion Gap 16.0 H, BUN 80 H*, Creatinine 4.2 H, Estimated GFR (MDRD) 14 L, Glucose 123 H, Calcium 9.0, Total Bilirubin 1.0, AST 44 H, ALT 74 H, Alkaline Phosphatase 181 H, Total Protein 8.1, Albumin 4.3, Globulin 3.8, Albumin/Globulin Ratio 1.1, Lipase 96 H 01/15/20 15:08: WBC 14.6 H, RBC 4.25 L, Hgb 13.6 L, Hct 38.8 L, MCV 91.3, MCH 32.0 H, MCHC 35.1, RDW 11.9 L, Plt Count 628 H, MPV 9.6, Neut # (Auto) 12.0 H, Lymph # (Auto) 1.3 L, [place] # (Auto) 0.7, Eos # (Auto) 0.4, Baso # (Auto) 0.1, Absolute Nucleated RBC 0.00, Nucleated RBC % 0.0 - Diagnosis Diagnosis: Acute volume contraction and dehydration due to ileostomy status - Plan Plan: I agree with all excellent care provided by the hospitalist service. Recommend continuing lomotil to try to control ileostomy output. At discharge, recommend arrangements for qod fluid bolus and biweekly labs until he is well enough for ostomy reversal (approx 6-8 weeks). Also would teach patient to measure ostomy output and replace with an equal volume of oral liquid.
[2020-01-15] MEDS: LACTATED RINGERS 1,000 ML IV SCH (18:26)
[2020-01-15] MEDS ORDERED: LORazepam 0.5 MG TABLET PO PRN (18:59)
[2020-01-15 19:10] LABS: RBC,URINE 0-5 /HPF (0-5); SQUAMOUS EPITHELIAL CELL,UR RARE Squamous (<= Few)
[2020-01-15 19:11] LABS: BACTERIA,URINE None Seen /HPF (None Seen); MUCUS,URINE Moderate Strands
[2020-01-15 19:31] LABS: CALCIUM 8.5 mg/dL (8.5-10.3); CREATININE 3.6 mg/dL (0.6-1.2)
[2020-01-15] MEDS: HEPARIN 5,000 UNIT/ML VIAL SUBQ SCH (20:39)
[2020-01-15] MEDS ORDERED: HEPARIN 5,000 UNIT/ML VIAL SUBQ SCH (21:00)
[2020-01-16] MEDS: LACTATED RINGERS 1,000 ML IV SCH ×5 (01:12→20:21)
[2020-01-16] MEDS: SODIUM CHLORIDE FLUSH 0.9% 10 ML SYRINGE IVP SCH ×3 (03:44→17:06)
[2020-01-16 05:36] LABS: BASOPHILS # (AUTO) 0.1 10^3/uL (0.0-0.1); BASOPHILS % (AUTO) 1.1 %; EOSINOPHILS # (AUTO) 0.6 10^3/uL (0.0-0.7); EOSINOPHILS % (AUTO) 7.3 %; LYMPHOCYTES # (AUTO) 1.4 10^3/uL (1.5-3.5); LYMPHOCYTES % (AUTO) 16.7 %; MEAN CORPUSCULAR HEMOGLOBIN 31.6 pg (27.0-31.0); MEAN CORPUSCULAR HGB CONC 34.8 g/dL (32.0-36.0); MEAN CORPUSCULAR VOLUME 90.8 fL (80.0-94.0); MEAN PLATELET VOLUME 9.5 fL (7.4-11.4); MONOCYTES # (AUTO) 0.7 10^3/uL (0.0-1.0); MONOCYTES % (AUTO) 8.7 %; NEUTROPHILS # (AUTO) 5.4 10^3/uL (1.5-6.6); NEUTROPHILS % (AUTO) 65.6 %; PLT - PLATELET COUNT 536 10^3/uL (130-450); RED CELL DISTRIBUTION WIDTH 11.7 % (12.0-15.0); WHITE BLOOD COUNT 8.2 x10^3/uL (4.8-10.8)
[2020-01-16 05:50] LABS: CREATININE 2.4 mg/dL (0.6-1.2); MAGNESIUM 2.2 mg/dL (1.7-2.8); PHOSPHORUS 5.3 mg/dL (2.5-4.6)
--- NOTE | 2020-01-16 08:29 | Ultrasound Report ---
PROCEDURE: Retroperitoneal INDICATIONS: Acute kidney injury. TECHNIQUE: Real-time scanning was performed of the retroperitoneal organs, with image documentation. COMPARISON: Prior CT scanning 01/01/2020. FINDINGS: Kidneys: Kidneys are normal in size. Right kidney measures 11.6 cm long; left kidney measures 11.6 cm long. Right renal cortical thickness is 1.3 cm; left renal cortical thickness is 1.5 cm. No ayaz d masses, hydronephrosis, or nephrolithiasis. Miscellaneous: No free abdominal fluid. Prevoid volume is 788 cc and postvoid residual is significa nt at 443 cc IMPRESSION: No hydronephrosis or nephrolithiasis bilaterally, but there is abnormal bladder function with prevoid bladder volume almost 800 cc and postvoid residual 443 cc. Reviewed by: Maciej Roach MD on 01/16/2020 8:27 AM PDT Approved by: Maciej Roach MD on 01/16/2020 8:27 AM PDT Station ID: [id number]
[2020-01-16] MEDS: HEPARIN 5,000 UNIT/ML VIAL SUBQ SCH ×2 (08:49→21:59)
[2020-01-16] MEDS ORDERED: ENOXAPARIN 40 MG/0.4 ML SYRINGE SUBQ SCH (09:00)
--- NOTE | 2020-01-16 10:15 | PHARMACY PROGRESS NOTE ---
- Best Possible Medication History Admit Date and Time: 01/15/20 1555 Processed by: Pharmacy Medication History completed: Yes Secondary Source(s): Previous admit records As the person ultimately responsible for medication therapy, providers are able to order a medication from an existing home medication list in [facility] via the "Reconcile Routine" prior to Confirmation of that medication by support clerk. Such practice is discouraged except when the physician, in their clinical judgment, deems that a medical need exists for a medication without regard to previous use.
--- NOTE | 2020-01-16 11:47 | PROVIDER PROGRESS NOTE ---
Assessment/Plan - Problem List (1) Hyponatremia Assessment/Plan: Na was 121 and still has low serum sodium of 129 today. It is related to high output fluid losses through his colostomy. He has therefore hypovolemic hyponatremia. Continue with IV fluid replacement containing normal saline. Follow BMP daily (2) Acute renal failure Qualifiers: Acute renal failure type: unspecified Qualified Code(s): N17.9 - Acute kidney failure, unspecified Assessment/Plan: He still has marked abnormality in his renal numbers: 72/3.6 yesterday has improved to 67/2.4 today. Continue IV fluids for rehydration. Encourage po fluid intake as well, since he is not nauseated. (3) Dehydration Assessment/Plan: Caused by diarrhea/high output thru colostomy. Continue iv fluids Follow BMP daily (4) Diarrhea following gastrointestinal surgery Assessment/Plan: C. diff result is neg. Will start using Imodium here. Continue full liquid diet, advance as diarrhea improves. Dietary Consult. Continue iv fluids Awaiting any further recommendations from Gen Surgery consult. (5) Status post colectomy Assessment/Plan: He had a perforated viscus and required colostomy tube, was discharged from here 1 week ago. General surgery was requested for consultation in case there were other recommendations, there were none. (6) Glaucoma Assessment/Plan: His home meds have been reordered to use here. - Current Meds Current Meds: Current Medications Generic Name Dose Route Start Last Admin Trade Name Freq PRN Reason Stop Dose Admin Heparin Sodium (Porcine) 5,000 unit 01/15/20 21:00 01/16/20 08:49 SUBQ 5,000 unit BID WARD Administration Lactated Ringer's 1,000 mls @ 150 mls/hr 01/15/20 16:00 01/16/20 08:00 Lr IV 150 mls/hr .[id number] WARD Administration Lorazepam 0.5 mg 01/15/20 18:59 01/15/20 20:40 Ativan PO 0.5 mg Q8H PRN Administration Anxiety Sodium Chloride 10 ml 01/15/20 17:00 01/16/20 07:53 Normal Saline Flush 0.9% IVP Not Given 0100,0900,1700 WARD - Lab Result Fish Bone Diagrams: 01/16/20 05:26 01/16/20 05:26 - Additional Planning My Orders: My Active Orders 01/16/20 11:35 Loperamide [Imodium] 2 mg PO QID PRN 01/16/20 12:00 Brimonidine 0.2% Ophth Drops [Alphagan P 0.2% Ophth Drops] 1 drops EACHEYE BID Dorzolamide/Timolol Ophth Soln [Cosopt] 1 drops EACHEYE BID 01/16/20 21:00 Latanoprost 0.005% Ophth Drops [Xalatan Ophth Drops] 1 drops EACHEYE QPM 01/17/20 07:00 Levothyroxine [Synthroid] 100 mcg PO QDAC 01/17/20 09:00 Aspirin Chewable [St Lj Aspirin] 81 mg PO DAILY Subjective - Subjective Patient Reports: Feeling Better, Diarrhea Objective Vital Signs: Vital Signs - 24 hr 01/15/20 01/15/20 01/15/20 14:36 15:00 16:00 Temperature 36.5 C Heart Rate 50 L 62 58 L Heart Rate [ Brachial] Respiratory 16 16 15 Rate Blood Pressure 107/57 L 116/65 130/69 Blood Pressure [Left Brachial artery] O2 Saturation 99 98 100 01/15/20 01/15/20 01/16/20 17:00 20:18 01:00 Temperature 36.7 C 37.2 C 37 C Heart Rate Heart Rate [ 64 65 69 Brachial] Respiratory 18 18 16 Rate Blood Pressure Blood Pressure 138/60 H 139/67 H 119/64 [Left Brachial artery] O2 Saturation 99 97 95 01/16/20 01/16/20 04:40 07:30 Temperature 36.8 C 37.0 C Heart Rate Heart Rate [ 75 71 Brachial] Respiratory 18 18 Rate Blood Pressure Blood Pressure 125/66 122/63 [Left Brachial artery] O2 Saturation 98 95 Oxygen O2 Source Room air I&O (Last 24 Hrs): Intake and Output Totals x24h 01/14/20 01/15/20 01/16/20 23:59 23:59 23:59 Intake Total 2147.5 2350 Output Total 1500 2750 Balance 647.5 -400 General: Alert HEENT: EOMI, Mucous membr. moist/pink Neck: Supple, No JVD Neuro: Alert, Non Focal Cardiovascular: Regular rate Respiratory: No respiratory distress Abdomen: Soft Extremities: No edema - Results Results: Laboratory Results WBC 8.2 x10^3/uL (4.8-10.8) 01/16/20 05:26 RBC 3.80 10^6/uL (4.70-6.10) L 01/16/20 05:26 Hgb 12.0 g/dL (14.0-18.0) L 01/16/20 05:26 Hct 34.5 % (42.0-52.0) L 01/16/20 05:26 MCV 90.8 fL (80.0-94.0) 01/16/20 05:26 MCH 31.6 pg (27.0-31.0) H 01/16/20 05:26 MCHC 34.8 g/dL (32.0-36.0) 01/16/20 05:26 RDW 11.7 % (12.0-15.0) L 01/16/20 05:26 Plt Count 536 10^3/uL (130-450) H 01/16/20 05:26 MPV 9.5 fL (7.4-11.4) 01/16/20 05:26 Neut # (Auto) 5.4 10^3/uL (1.5-6.6) 01/16/20 05:26 Lymph # (Auto) 1.4 10^3/uL (1.5-3.5) L 01/16/20 05:26 [place] # (Auto) 0.7 10^3/uL (0.0-1.0) 01/16/20 05:26 Eos # (Auto) 0.6 10^3/uL (0.0-0.7) 01/16/20 05:26 Baso # (Auto) 0.1 10^3/uL (0.0-0.1) 01/16/20 05:26 Absolute Nucleated RBC 0.00 x10^3/uL 01/16/20 05:26 Nucleated RBC % 0.0 /100WBC 01/16/20 05:26 Sodium 129 mmol/L (135-145) L 01/16/20 05:26 Potassium 5.2 mmol/L (3.5-5.0) H 01/16/20 05:26 Chloride 102 mmol/L (101-111) 01/16/20 05:26 Carbon Dioxide 16 mmol/L (21-32) L 01/16/20 05:26 Anion Gap 11.0 (6-13) 01/16/20 05:26 BUN 67 mg/dL (6-20) H 01/16/20 05:26 Creatinine 2.4 mg/dL (0.6-1.2) H 01/16/20 05:26 Estimated GFR (MDRD) 27 (>89) L 01/16/20 05:26 Glucose 98 mg/dL (70-100) 01/16/20 05:26 Lactic Acid 0.9 mmol/L (0.5-2.2) 01/15/20 19:05 Calcium 9.0 mg/dL (8.5-10.3) 01/16/20 05:26 Phosphorus 5.3 mg/dL (2.5-4.6) H 01/16/20 05:26 Magnesium 2.2 mg/dL (1.7-2.8) 01/16/20 05:26 Total Bilirubin 1.0 mg/dL (0.2-1.0) 01/15/20 15:08 AST 44 IU/L (10-42) H 01/15/20 15:08 ALT 74 IU/L (10-60) H 01/15/20 15:08 Alkaline Phosphatase 181 IU/L (42-121) H 01/15/20 15:08 Troponin I High Sens 5.3 ng/L (2.3-19.7) 01/16/20 05:21 B-Natriuretic Peptide 19 pg/mL (5-100) 01/16/20 09:29 Total Protein 8.1 g/dL (6.7-8.2) 01/15/20 15:08 Albumin 4.3 g/dL (3.2-5.5) 01/15/20 15:08 Globulin 3.8 g/dL (2.1-4.2) 01/15/20 15:08 Albumin/Globulin Ratio 1.1 (1.0-2.2) 01/15/20 15:08 Lipase 96 U/L (22-51) H 01/15/20 15:08 Urine Color Cancelled 01/15/20 17:30 Urine Clarity Cancelled 01/15/20 17:30 Urine pH Cancelled 01/15/20 17:30 Ur Specific [place] Cancelled 01/15/20 17:30 Urine Protein Cancelled 01/15/20 17:30 Urine Glucose (UA) Cancelled 01/15/20 17:30 Urine Ketones Cancelled 01/15/20 17:30 Urine Occult Blood Cancelled 01/15/20 17:30 Urine Nitrite Cancelled 01/15/20 17:30 Urine Bilirubin Cancelled 01/15/20 17:30 Urine Urobilinogen Cancelled 01/15/20 17:30 Ur Leukocyte Esterase Cancelled 01/15/20 17:30 Urine RBC 0-5 /HPF (0-5) 01/15/20 15:30 Urine RBC Cancelled 01/15/20 15:30 Urine WBC 0-3 /HPF (0-3) 01/15/20 15:30 Urine WBC Cancelled 01/15/20 15:30 Urine WBC Clumps Cancelled 01/15/20 15:30 Ur Epithelial Cells Cancelled 01/15/20 15:30 Ur Squamous Epith Cells Cancelled 01/15/20 15:30 Ur Squamous Epith Cells RARE Squamous (<= Few) 01/15/20 15:30 Urine Crystals Cancelled 01/15/20 15:30 Amorphous Sediment Cancelled 01/15/20 15:30 Urine Bacteria Cancelled 01/15/20 15:30 Urine Bacteria None Seen /HPF (None Seen) 01/15/20 15:30 Urine Casts Cancelled 01/15/20 15:30 Urine Starch Cancelled 01/15/20 15:30 Urine Mucus Cancelled 01/15/20 15:30 Urine Mucus Moderate Strands 01/15/20 15:30 Urine Trichomonas Cancelled 01/15/20 15:30 Urine Yeast Cancelled 01/15/20 15:30 Urine Sperm Cancelled 01/15/20 15:30 Ur Oval Fat Bodies Cancelled 01/15/20 15:30 Ur Microscopic Review Cancelled 01/15/20 17:30 Urine Culture Comments Cancelled 01/15/20 17:30 Urine Sodium < 12.0 mmol/L 01/15/20 17:30 Stl C. diff Tox B Gene NEGATIVE (NEGATIVE) 01/15/20 17:30 - Procedures Procedures: Procedures BYPASS ILEUM TO CUTANEOUS, OPEN APPROACH (01/01/20) EXCISION OF ASCENDING COLON, OPEN APPROACH (01/01/20) EXCISION OF DESCENDING COLON, OPEN APPROACH (01/01/20) EXCISION OF SIGMOID COLON, OPEN APPROACH (01/01/20) EXCISION OF SMALL INTESTINE, OPEN APPROACH (01/01/20) INSERTION OF INFUSION DEV INTO SUP VENA CAVA, PERC APPROACH (01/01/20)
[2020-01-16] MEDS: BRIMONIDINE 0.2% OPHTH DROPS 5 ML EACHEYE SCH ×2 (12:26→20:21)
[2020-01-16] MEDS: DORZOLAMIDE/TIMOLOL OPHTH DROPS EACHEYE SCH ×2 (13:34→21:57)
[2020-01-16] MEDS: LOPERAMIDE 2 MG CAPSULE PO PRN (17:03)
[2020-01-16] MEDS: DIPHENOX/ATROPINE 2.5/0.025 MG TABLET PO PRN (21:58)
[2020-01-16] MEDS: LATANOPROST 0.005% OPHTH DROPS EACHEYE SCH (21:59)
[2020-01-17] MEDS: LOPERAMIDE 2 MG CAPSULE PO PRN (00:33)
[2020-01-17] MEDS: SODIUM CHLORIDE FLUSH 0.9% 10 ML SYRINGE IVP SCH ×4 (00:34→23:22)
[2020-01-17] MEDS: LACTATED RINGERS 1,000 ML IV SCH ×4 (02:50→22:59)
[2020-01-17 05:16] LABS: BASOPHILS # (AUTO) 0.1 10^3/uL (0.0-0.1); BASOPHILS % (AUTO) 1.3 %; EOSINOPHILS # (AUTO) 0.6 10^3/uL (0.0-0.7); EOSINOPHILS % (AUTO) 7.2 %; LYMPHOCYTES # (AUTO) 2.1 10^3/uL (1.5-3.5); LYMPHOCYTES % (AUTO) 24.6 %; MEAN CORPUSCULAR HEMOGLOBIN 31.4 pg (27.0-31.0); MEAN CORPUSCULAR HGB CONC 33.8 g/dL (32.0-36.0); MEAN CORPUSCULAR VOLUME 92.9 fL (80.0-94.0); MEAN PLATELET VOLUME 9.5 fL (7.4-11.4); MONOCYTES # (AUTO) 0.8 10^3/uL (0.0-1.0); MONOCYTES % (AUTO) 9.1 %; NEUTROPHILS % (AUTO) 57.5 %; PLT - PLATELET COUNT 543 10^3/uL (130-450); RED BLOOD COUNT 3.82 10^6/uL (4.70-6.10); RED CELL DISTRIBUTION WIDTH 11.9 % (12.0-15.0); WHITE BLOOD COUNT 8.7 x10^3/uL (4.8-10.8)
[2020-01-17 05:27] LABS: CALCIUM 9.5 mg/dL (8.5-10.3); CREATININE 1.5 mg/dL (0.6-1.2); MAGNESIUM 2.4 mg/dL (1.7-2.8); PHOSPHORUS 3.6 mg/dL (2.5-4.6)
[2020-01-17] MEDS: DIPHENOX/ATROPINE 2.5/0.025 MG TABLET PO PRN (06:01)
[2020-01-17] MEDS: LEVOTHYROXINE 100 MCG TABLET PO SCH (06:02)
[2020-01-17] MEDS ORDERED: DEXTROSE 10% 250 ML IV STA (06:56)
[2020-01-17] MEDS ORDERED: INSULIN REGULAR HUMAN 300 UNIT/3 ML VIAL IVP ONE (06:57)
[2020-01-17] MEDS: BRIMONIDINE 0.2% OPHTH DROPS 5 ML EACHEYE SCH ×2 (08:15→20:44)
[2020-01-17] MEDS: HEPARIN 5,000 UNIT/ML VIAL SUBQ SCH ×2 (08:19→21:01)
[2020-01-17] MEDS: ASPIRIN CHEW 81 MG TABLET PO SCH (08:20)
[2020-01-17] MEDS: DORZOLAMIDE/TIMOLOL OPHTH DROPS EACHEYE SCH ×2 (08:26→21:03)
--- NOTE | 2020-01-17 10:40 | PROVIDER PROGRESS NOTE ---
Assessment/Plan - Problem List (1) Hyponatremia Assessment/Plan: Slowly improving. It was felt to be hypovolemic hyponatremia. He still requires IV fluids for managing his serum sodium and his renal failure from dehydration. Follow BMP day (2) Acute renal failure Qualifiers: Acute renal failure type: unspecified Qualified Code(s): N17.9 - Acute kidney failure, unspecified Assessment/Plan: He had significantly elevated BUN/creatinine at admission (creat 4.2). This is improving slowly daily. The creatinine is still up at 1.5 today. He had retroperitoneal ultrasound on this admission to look for renal disease and this showed no hydronephrosis, no obstruction or stones but he had a postvoid residual that was significant at 400 cc. Today I learned that when he had the surgery done at the last admission, Dr. Bailey was already concerned that he might need outpatient IV fluids because he already had a "borderline chronic renal insufficiency". For that reason, a PICC line had been inserted. When a different discharging surgeon took over (Dr Ibanez), the PICC line was withdrawn, Home Health was ordered for wound and ostomy management but no plan for lab checks or intermittent IV fluids ordered, at the [facility], for example. The patient has a PCP at the [facility] which makes it difficult to have the PCP order the fluids if they are needed, since [facility] PCPs are hard to reach. All the above was explained to the patient. He was eager to be discharged today. Continue with IV hydration, will follow his BMP daily and give fluids until his creatinine stabilizes or normalizes. The slag expander and social work were informed of the above problem and that he may need outpatient iv fluid infusions, to be determined in a few days. Avoid nephrotoxins. (3) Dehydration Assessment/Plan: He feels stronger than at admission. He is clinically not dehydrated today but his BUN/creatinine are still elevated Continue with gentle IV hydration. Continue to encourage p.o. fluids. (4) Diarrhea following gastrointestinal surgery Assessment/Plan: He still has significant output from the ostomy and it is still liquidy. Will order scheduled Imodium and scheduled Lomotil alternating, rather than having him to ask for these meds prn. The other alternative, per pharmacy, is Questran, but will try managing using the scheduled meds first. There had been an initial plan during the last hospitalization when he got the ostomy, for PICC line and outpatient IV fluids at [facility], but that plan was never carried through, possibly because he had no PCP [facility] The [facility] RN, Stephanie, will look into that. (5) Status post colectomy Assessment/Plan: He was told that this might be reversed in about 6 to 8 weeks. (6) Hyperkalemia Assessment/Plan: Potassium is still elevated but not in a dangerous range. Avoid potassium-containing foods (renal diet). 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 The prior LFTs on last admission were normal. At the last admission, his abdominal CT showed an entirely normal liver. There was no imaging done to include the liver on this admission. We will repeat the LFTs. If still elevated will follow LFTs daily and obtain imaging of the liver now. Will order a hepatorenal diet. (8) Hypothyroidism Assessment/Plan: His home med was resumed (9) Glaucoma Assessment/Plan: Home eyedrops resumed. (10) Abnormal EKG Assessment/Plan: He has diffuse ST elevations, on admission EKG, consistent with pericarditis. Echo was done yesterday to evaluate for pericardial effusion, and there was none. I compared this EKG to his old EKGs and it is definitely a new finding. Perhaps he now has early repolarization. - Current Meds Current Meds: Current Medications Generic Name Dose Route Start Last Admin Trade Name Freq PRN Reason Stop Dose Admin Aspirin 81 mg 01/17/20 09:00 01/17/20 08:20 [facility] Aspirin PO 81 mg DAILY WARD Administration Brimonidine Tartrate 1 drops 01/16/20 12:00 01/17/20 08:15 Alphagan P 0.2% Ophth Drops EACHEYE 1 drops BID WARD Administration Diphenoxylate HCl/Atropine 1 tab 01/16/20 17:15 01/17/20 06:01 Lomotil PO 1 tab QID PRN Administration Diarrhea Dorzolamide/Timolol 1 drops 01/16/20 12:00 01/17/20 08:26 Cosopt EACHEYE 1 drops BID WARD Administration Heparin Sodium (Porcine) 5,000 unit 01/15/20 21:00 01/17/20 08:19 SUBQ 5,000 unit BID WARD Administration Lactated Ringer's 1,000 mls @ 150 mls/hr 01/15/20 16:00 01/17/20 02:50 Lr IV 150 mls/hr .Q6H40M WARD Administration Latanoprost 1 drops 01/16/20 21:00 01/16/20 21:59 Xalatan Ophth Drops EACHEYE 1 drops QPM WARD Administration Levothyroxine Sodium 100 mcg 01/17/20 07:00 01/17/20 06:02 Synthroid PO 100 mcg QDAC WARD Administration Loperamide HCl 2 mg 01/16/20 11:35 01/17/20 00:33 Imodium PO 2 mg QID PRN Administration Diarrhea Lorazepam 0.5 mg 01/15/20 18:59 01/15/20 20:40 Ativan PO 0.5 mg Q8H PRN Administration Anxiety Sodium Chloride 10 ml 01/15/20 17:00 01/17/20 08:28 Normal Saline Flush 0.9% IVP 10 ml 0100,0900,1700 WARD Administration - Lab Result Fish Bone Diagrams: 01/17/20 05:09 01/17/20 05:09 - Additional Planning My Orders: My Active Orders 01/16/20 11:35 Loperamide [Imodium] 2 mg PO QID PRN 01/16/20 12:00 Brimonidine 0.2% Ophth Drops [Alphagan P 0.2% Ophth Drops] 1 drops EACHEYE BID Dorzolamide/Timolol Ophth Soln [Cosopt] 1 drops EACHEYE BID 01/16/20 Dinner DIET [Soft (Low Fiber) Diet] [DIET] 01/16/20 21:00 Latanoprost 0.005% Ophth Drops [Xalatan Ophth Drops] 1 drops EACHEYE QPM 01/17/20 07:00 Levothyroxine [Synthroid] 100 mcg PO QDAC 01/17/20 09:00 Aspirin Chewable [St Lj Aspirin] 81 mg PO DAILY Subjective - Subjective Patient Reports: Feeling Better, Fatigue (Appears very tired. He then tells me that he has not slept overnight for the last 3 nights because of being interrupted and awoken.) Objective Vital Signs: Vital Signs - 24 hr 01/16/20 01/16/20 01/16/20 12:29 13:00 17:00 Temperature 37 C 36.9 C 37.2 C Heart Rate 74 Heart Rate [ 64 62 Brachial] Respiratory 18 19 15 Rate Blood Pressure 117/65 137/68 H [Left Brachial artery] O2 Saturation 96 95 99 01/16/20 01/17/20 01/17/20 21:00 00:35 05:07 Temperature 36.7 C 37.2 C 36.6 C Heart Rate Heart Rate [ 61 64 73 Brachial] Respiratory 16 18 18 Rate Blood Pressure 117/66 137/67 H 152/80 H [Left Brachial artery] O2 Saturation 99 96 95 01/17/20 08:41 Temperature 37.2 C Heart Rate Heart Rate [ 71 Brachial] Respiratory 17 Rate Blood Pressure 131/71 H [Left Brachial artery] O2 Saturation 96 Oxygen O2 Source Room air I&O (Last 24 Hrs): Intake and Output Totals x24h 01/15/20 01/16/20 01/17/20 23:59 23:59 23:59 Intake Total 2147.5 5227.5 2780 Output Total 1500 4550 3225 Balance 647.5 677.5 -445 General: Alert, Oriented x3 HEENT: Mucous membr. moist/pink Neck: Supple, No JVD Neuro: Alert, Non Focal Cardiovascular: Regular rate Respiratory: No respiratory distress Abdomen: Soft, No tenderness, Other (Diminished bowel sounds, Ostomy bag in place) Extremities: No edema - Results Results: Laboratory Results WBC 8.7 x10^3/uL (4.8-10.8) 01/17/20 05:09 RBC 3.82 10^6/uL (4.70-6.10) L 01/17/20 05:09 Hgb 12.0 g/dL (14.0-18.0) L 01/17/20 05:09 Hct 35.5 % (42.0-52.0) L 01/17/20 05:09 MCV 92.9 fL (80.0-94.0) 01/17/20 05:09 MCH 31.4 pg (27.0-31.0) H 01/17/20 05:09 MCHC 33.8 g/dL (32.0-36.0) 01/17/20 05:09 RDW 11.9 % (12.0-15.0) L 01/17/20 05:09 Plt Count 543 10^3/uL (130-450) H 01/17/20 05:09 MPV 9.5 fL (7.4-11.4) 01/17/20 05:09 Neut # (Auto) 5.0 10^3/uL (1.5-6.6) 01/17/20 05:09 Lymph # (Auto) 2.1 10^3/uL (1.5-3.5) 01/17/20 05:09 [place] # (Auto) 0.8 10^3/uL (0.0-1.0) 01/17/20 05:09 Eos # (Auto) 0.6 10^3/uL (0.0-0.7) 01/17/20 05:09 Baso # (Auto) 0.1 10^3/uL (0.0-0.1) 01/17/20 05:09 Absolute Nucleated RBC 0.00 x10^3/uL 01/17/20 05:09 Nucleated RBC % 0.0 /100WBC 01/17/20 05:09 Sodium 137 mmol/L (135-145) 01/17/20 05:09 Potassium 5.3 mmol/L (3.5-5.0) H 01/17/20 05:09 Chloride 106 mmol/L (101-111) 01/17/20 05:09 Carbon Dioxide 21 mmol/L (21-32) 01/17/20 05:09 Anion Gap 10.0 (6-13) 01/17/20 05:09 BUN 42 mg/dL (6-20) H 01/17/20 05:09 Creatinine 1.5 mg/dL (0.6-1.2) H 01/17/20 05:09 Estimated GFR (MDRD) 46 (>89) L 01/17/20 05:09 Glucose 94 mg/dL (70-100) 01/17/20 05:09 Lactic Acid 0.9 mmol/L (0.5-2.2) 01/15/20 19:05 Calcium 9.5 mg/dL (8.5-10.3) 01/17/20 05:09 Phosphorus 3.6 mg/dL (2.5-4.6) 01/17/20 05:09 Magnesium 2.4 mg/dL (1.7-2.8) 01/17/20 05:09 Total Bilirubin 1.0 mg/dL (0.2-1.0) 01/15/20 15:08 AST 44 IU/L (10-42) H 01/15/20 15:08 ALT 74 IU/L (10-60) H 01/15/20 15:08 Alkaline Phosphatase 181 IU/L (42-121) H 01/15/20 15:08 Troponin I High Sens 5.3 ng/L (2.3-19.7) 01/16/20 05:21 B-Natriuretic Peptide 19 pg/mL (5-100) 01/16/20 09:29 Total Protein 8.1 g/dL (6.7-8.2) 01/15/20 15:08 Albumin 4.3 g/dL (3.2-5.5) 01/15/20 15:08 Globulin 3.8 g/dL (2.1-4.2) 01/15/20 15:08 Albumin/Globulin Ratio 1.1 (1.0-2.2) 01/15/20 15:08 Lipase 96 U/L (22-51) H 01/15/20 15:08 Urine Color Cancelled 01/15/20 17:30 Urine Clarity Cancelled 01/15/20 17:30 Urine pH Cancelled 01/15/20 17:30 Ur Specific [place] Cancelled 01/15/20 17:30 Urine Protein Cancelled 01/15/20 17:30 Urine Glucose (UA) Cancelled 01/15/20 17:30 Urine Ketones Cancelled 01/15/20 17:30 Urine Occult Blood Cancelled 01/15/20 17:30 Urine Nitrite Cancelled 01/15/20 17:30 Urine Bilirubin Cancelled 01/15/20 17:30 Urine Urobilinogen Cancelled 01/15/20 17:30 Ur Leukocyte Esterase Cancelled 01/15/20 17:30 Urine RBC 0-5 /HPF (0-5) 01/15/20 15:30 Urine RBC Cancelled 01/15/20 15:30 Urine WBC 0-3 /HPF (0-3) 01/15/20 15:30 Urine WBC Cancelled 01/15/20 15:30 Urine WBC Clumps Cancelled 01/15/20 15:30 Ur Epithelial Cells Cancelled 01/15/20 15:30 Ur Squamous Epith Cells Cancelled 01/15/20 15:30 Ur Squamous Epith Cells RARE Squamous (<= Few) 01/15/20 15:30 Urine Crystals Cancelled 01/15/20 15:30 Amorphous Sediment Cancelled 01/15/20 15:30 Urine Bacteria Cancelled 01/15/20 15:30 Urine Bacteria None Seen /HPF (None Seen) 01/15/20 15:30 Urine Casts Cancelled 01/15/20 15:30 Urine Starch Cancelled 01/15/20 15:30 Urine Mucus Cancelled 01/15/20 15:30 Urine Mucus Moderate Strands 01/15/20 15:30 Urine Trichomonas Cancelled 01/15/20 15:30 Urine Yeast Cancelled 01/15/20 15:30 Urine Sperm Cancelled 01/15/20 15:30 Ur Oval Fat Bodies Cancelled 01/15/20 15:30 Ur Microscopic Review Cancelled 01/15/20 17:30 Urine Culture Comments Cancelled 01/15/20 17:30 Urine Sodium < 12.0 mmol/L 01/15/20 17:30 Stl C. diff Tox B Gene NEGATIVE (NEGATIVE) 01/15/20 17:30 - Procedures Procedures: Procedures BYPASS ILEUM TO CUTANEOUS, OPEN APPROACH (01/01/20) EXCISION OF ASCENDING COLON, OPEN APPROACH (01/01/20) EXCISION OF DESCENDING COLON, OPEN APPROACH (01/01/20) EXCISION OF SIGMOID COLON, OPEN APPROACH (01/01/20) EXCISION OF SMALL INTESTINE, OPEN APPROACH (01/01/20) INSERTION OF INFUSION DEV INTO SUP VENA CAVA, PERC APPROACH (01/01/20)
[2020-01-17] MEDS: LOPERAMIDE 2 MG CAPSULE PO SCH ×3 (12:54→19:34)
[2020-01-17] MEDS: DIPHENOX/ATROPINE 2.5/0.025 MG TABLET PO SCH ×3 (13:13→21:01)
--- NOTE | 2020-01-17 13:24 | PROVIDER PROGRESS NOTE ---
Subjective - Prog Note Date Prog Note Date: 01/17/20 Prog Note Time: 13:22 - Subjective Pt reports feeling: Improved Subjective: Looking better every day. Continues to deny discomfort. Says he feels much less weak than when admitted. Objective - Vital Signs/Intake & Output Vital Signs: Vital Signs x48h Temp Pulse Resp BP Pulse Ox 01/17/20 11:21 36.5 C 77 18 131/66 H 98 01/17/20 08:41 37.2 C 71 17 131/71 H 96 Intake & Output: Intake & Output 01/14/20 01/15/20 01/16/20 01/17/20 23:59 23:59 23:59 23:59 Intake Total 2147.5 5227.5 4280 Output Total 1500 4550 3950 Balance 647.5 677.5 330 - Lab Results Fish Bones: 01/17/20 05:09 01/17/20 05:09 Other Labs: Lab Results x24hrs 01/17/20 01/17/20 Range/Units 05:09 05:09 WBC 8.7 (4.8-10.8) x10^3/uL RBC 3.82 L (4.70-6.10) 10^6/uL Hgb 12.0 L (14.0-18.0) g/dL Hct 35.5 L (42.0-52.0) % MCV 92.9 (80.0-94.0) fL MCH 31.4 H (27.0-31.0) pg MCHC 33.8 (32.0-36.0) g/dL RDW 11.9 L (12.0-15.0) % Plt Count 543 H (130-450) 10^3/uL MPV 9.5 (7.4-11.4) fL Neut # (Auto) 5.0 (1.5-6.6) 10^3/uL Lymph # (Auto) 2.1 (1.5-3.5) 10^3/uL [place] # (Auto) 0.8 (0.0-1.0) 10^3/uL Eos # (Auto) 0.6 (0.0-0.7) 10^3/uL Baso # (Auto) 0.1 (0.0-0.1) 10^3/uL Absolute Nucleated RBC 0.00 x10^3/uL Nucleated RBC % 0.0 /100WBC Sodium 137 (135-145) mmol/L Potassium 5.3 H (3.5-5.0) mmol/L Chloride 106 (101-111) mmol/L Carbon Dioxide 21 (21-32) mmol/L Anion Gap 10.0 (6-13) BUN 42 H (6-20) mg/dL Creatinine 1.5 H (0.6-1.2) mg/dL Estimated GFR (MDRD) 46 L (>89) Glucose 94 (70-100) mg/dL Calcium 9.5 (8.5-10.3) mg/dL Phosphorus 3.6 (2.5-4.6) mg/dL Magnesium 2.4 (1.7-2.8) mg/dL Assessment/Plan - Problem List (1) Dehydration Impression: Continues to improve with the excellent care of the Hospitalist service. Will be available if needed.
[2020-01-17] MEDS: LATANOPROST 0.005% OPHTH DROPS EACHEYE SCH (21:06)
[2020-01-17] MEDS: ZOLPIDEM 5 MG TABLET PO PRN (23:29)
[2020-01-18] MEDS: LEVOTHYROXINE 100 MCG TABLET PO SCH (06:21)
[2020-01-18] MEDS: LOPERAMIDE 2 MG CAPSULE PO SCH ×4 (06:21→20:13)
[2020-01-18] MEDS: LACTATED RINGERS 1,000 ML IV SCH ×3 (06:22→15:11)
[2020-01-18 06:49] LABS: BASOPHILS # (AUTO) 0.1 10^3/uL (0.0-0.1); BASOPHILS % (AUTO) 1.1 %; EOSINOPHILS # (AUTO) 0.5 10^3/uL (0.0-0.7); EOSINOPHILS % (AUTO) 6.7 %; HGB - HEMOGLOBIN 11.4 g/dL (14.0-18.0); LYMPHOCYTES % (AUTO) 26.1 %; MEAN CORPUSCULAR HEMOGLOBIN 32.1 pg (27.0-31.0); MEAN CORPUSCULAR HGB CONC 33.5 g/dL (32.0-36.0); MEAN CORPUSCULAR VOLUME 95.8 fL (80.0-94.0); MEAN PLATELET VOLUME 9.7 fL (7.4-11.4); MONOCYTES # (AUTO) 0.6 10^3/uL (0.0-1.0); MONOCYTES % (AUTO) 8.4 %; NEUTROPHILS # (AUTO) 4.4 10^3/uL (1.5-6.6); NEUTROPHILS % (AUTO) 57.4 %; PLT - PLATELET COUNT 506 10^3/uL (130-450); RED BLOOD COUNT 3.55 10^6/uL (4.70-6.10); WHITE BLOOD COUNT 7.6 x10^3/uL (4.8-10.8)
[2020-01-18 07:08] LABS: ALBUMIN 3.4 g/dL (3.2-5.5); BILIRUBIN,DIRECT 0.1 mg/dL (0.1-0.5); BILIRUBIN,TOTAL 0.7 mg/dL (0.2-1.0); CREATININE 1.3 mg/dL (0.6-1.2); MAGNESIUM 1.9 mg/dL (1.7-2.8); PHOSPHORUS 3.1 mg/dL (2.5-4.6); TOTAL PROTEIN 6.2 g/dL (6.7-8.2)
[2020-01-18] MEDS: DORZOLAMIDE/TIMOLOL OPHTH DROPS EACHEYE SCH ×2 (08:00→21:58)
[2020-01-18] MEDS: HEPARIN 5,000 UNIT/ML VIAL SUBQ SCH ×2 (08:05→21:58)
[2020-01-18] MEDS: DIPHENOX/ATROPINE 2.5/0.025 MG TABLET PO SCH ×4 (08:08→21:58)
[2020-01-18] MEDS: BRIMONIDINE 0.2% OPHTH DROPS 5 ML EACHEYE SCH ×2 (08:08→20:13)
[2020-01-18] MEDS: ASPIRIN CHEW 81 MG TABLET PO SCH (08:08)
[2020-01-18] MEDS: SODIUM CHLORIDE FLUSH 0.9% 10 ML SYRINGE IVP SCH ×3 (08:09→23:43)
--- NOTE | 2020-01-18 14:46 | PROVIDER PROGRESS NOTE ---
Assessment/Plan - Problem List (1) Acute renal failure Qualifiers: Acute renal failure type: unspecified Qualified Code(s): N17.9 - Acute kidney failure, unspecified Assessment/Plan: Improving and today is down to 23/1.3. This is approximately at his baseline. Continue with a lower rate of IV hydration today since the diarrhea output has decreased. We will plan discharge tomorrow. (2) Diarrhea following gastrointestinal surgery Assessment/Plan: The output has decreased significantly since starting Lomotil and Imodium scheduled yesterday alternating doses. It appears that he will need peripheral IV hydration after discharge. Dr. Carpenter spoke to me today and instructed that a PICC line be put in and that he be scheduled to have every other day or twice a week IV fluid infusions at the [facility] clinic with weekly lab draws. This information was given to the nascar driver and [facility] will be contacted tomorrow (today is Sunday and they are closed) (3) Status post colectomy Assessment/Plan: As above (4) Hyperkalemia Assessment/Plan: This resolved as the renal function improved. 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 (6) Hypothyroidism Assessment/Plan: His TSH was normal, he is on his home dose of thyroid replacement (7) Glaucoma Assessment/Plan: He is on his home doses of eyedrops (8) Abnormal EKG Assessment/Plan: Echo done this admission showed normal LV function, no evidence of pericardial effusion. His EKG is new since his prior ones from about 3 weeks ago, suggesting that either has trivial pericarditis with no effusion seen on echo or he now has new "early polarization" (9) Dehydration Assessment/Plan: Clinically he does not appear dehydrated any longer (10) Hyponatremia Assessment/Plan: Resolved - Current Meds Current Meds: Current Medications Generic Name Dose Route Start Last Admin Trade Name Freq PRN Reason Stop Dose Admin Aspirin 81 mg 01/17/20 09:00 01/18/20 08:08 [facility] Aspirin PO 81 mg DAILY WARD Administration Brimonidine Tartrate 1 drops 01/16/20 12:00 01/18/20 08:08 Alphagan P 0.2% Ophth Drops EACHEYE 1 drops BID WARD Administration Diphenoxylate HCl/Atropine 1 tab 01/17/20 13:00 01/18/20 12:41 Lomotil PO 1 tab QID WARD Administration Dorzolamide/Timolol 1 drops 01/16/20 12:00 01/18/20 08:00 Cosopt EACHEYE 1 drops BID WARD Administration Heparin Sodium (Porcine) 5,000 unit 01/15/20 21:00 01/18/20 08:05 SUBQ 5,000 unit BID WARD Administration Lactated Ringer's 1,000 mls @ 150 mls/hr 01/15/20 16:00 01/18/20 11:08 Lr IV 150 mls/hr .Q6H40M WADR Administration Latanoprost 1 drops 01/16/20 21:00 01/17/20 21:06 Xalatan Ophth Drops EACHEYE 1 drops QPM WARD Administration Levothyroxine Sodium 100 mcg 01/17/20 07:00 01/18/20 06:21 Synthroid PO 100 mcg QDAC WARD Administration Loperamide HCl 2 mg 01/17/20 19:00 01/18/20 10:50 Imodium PO 2 mg 0700,1100,1500,1900 WARD Administration Lorazepam 0.5 mg 01/15/20 18:59 01/15/20 20:40 Ativan PO 0.5 mg Q8H PRN Administration Anxiety Sodium Chloride 10 ml 01/15/20 17:00 01/18/20 08:09 Normal Saline Flush 0.9% IVP Not Given 0100,0900,1700 WARD Zolpidem Tartrate 5 mg 01/17/20 14:14 01/17/20 23:29 Ambien PO 5 mg QPM PRN Administration Insomnia - Lab Result Fish Bone Diagrams: 01/18/20 06:25 01/18/20 06:25 - Additional Planning My Orders: My Active Orders 01/17/20 Dinner Hepatic/Renal Diet [DIET] 01/17/20 19:00 Loperamide [Imodium] 2 mg PO 0700,1100,1500,1900 01/18/20 11:01 PICC Line Care [RC] Q4H PICC Line Insert [RC] .ONCE Subjective - Subjective Patient Reports: Feeling Better, Resting Comfortably Nursing Reports: Other (Output per shift through the ostomy has decreased from the 800 cc down to about 250 cc, after starting Imodium and Lomotil.) Objective Vital Signs: Vital Signs - 24 hr 01/17/20 01/17/20 01/17/20 16:23 21:00 23:28 Temperature 37.4 C 37 C 37.2 C Heart Rate [ 58 L 61 61 Brachial] Respiratory 16 18 16 Rate Blood Pressure 142/67 H 146/77 H 123/73 [Left Brachial artery] O2 Saturation 98 99 97 01/18/20 01/18/20 07:57 12:43 Temperature 37.2 C 37.2 C Heart Rate [ 66 71 Brachial] Respiratory 12 12 Rate Blood Pressure 134/68 H 143/75 H [Left Brachial artery] O2 Saturation 95 99 Oxygen O2 Source Room air I&O (Last 24 Hrs): Intake and Output Totals x24h 01/16/20 01/17/20 01/18/20 23:59 23:59 22:59 Intake Total 5227.5 6420 3995 Output Total 4550 6025 2175 Balance 677.5 395 1820 General: Alert, Oriented x3 HEENT: Mucous membr. moist/pink Neck: No JVD Neuro: Alert, Non Focal Cardiovascular: Regular rate Respiratory: No respiratory distress Abdomen: Soft Extremities: No edema - Results Results: Laboratory Results WBC 7.6 x10^3/uL (4.8-10.8) 01/18/20 06:25 RBC 3.55 10^6/uL (4.70-6.10) L 01/18/20 06:25 Hgb 11.4 g/dL (14.0-18.0) L 01/18/20 06:25 Hct 34.0 % (42.0-52.0) L 01/18/20 06:25 MCV 95.8 fL (80.0-94.0) H 01/18/20 06:25 MCH 32.1 pg (27.0-31.0) H 01/18/20 06:25 MCHC 33.5 g/dL (32.0-36.0) 01/18/20 06:25 RDW 12.0 % (12.0-15.0) 01/18/20 06:25 Plt Count 506 10^3/uL (130-450) H 01/18/20 06:25 MPV 9.7 fL (7.4-11.4) 01/18/20 06:25 Neut # (Auto) 4.4 10^3/uL (1.5-6.6) 01/18/20 06:25 Lymph # (Auto) 2.0 10^3/uL (1.5-3.5) 01/18/20 06:25 [place] # (Auto) 0.6 10^3/uL (0.0-1.0) 01/18/20 06:25 Eos # (Auto) 0.5 10^3/uL (0.0-0.7) 01/18/20 06:25 Baso # (Auto) 0.1 10^3/uL (0.0-0.1) 01/18/20 06:25 Absolute Nucleated RBC 0.00 x10^3/uL 01/18/20 06:25 Nucleated RBC % 0.0 /100WBC 01/18/20 06:25 Sodium 138 mmol/L (135-145) 01/18/20 06:25 Potassium 4.9 mmol/L (3.5-5.0) 01/18/20 06:25 Chloride 105 mmol/L (101-111) 01/18/20 06:25 Carbon Dioxide 23 mmol/L (21-32) 01/18/20 06:25 Anion Gap 10.0 (6-13) 01/18/20 06:25 BUN 23 mg/dL (6-20) H 01/18/20 06:25 Creatinine 1.3 mg/dL (0.6-1.2) H 01/18/20 06:25 Estimated GFR (MDRD) 54 (>89) L 01/18/20 06:25 Glucose 94 mg/dL (70-100) 01/18/20 06:25 Lactic Acid 0.9 mmol/L (0.5-2.2) 01/15/20 19:05 Calcium 9.0 mg/dL (8.5-10.3) 01/18/20 06:25 Phosphorus 3.1 mg/dL (2.5-4.6) 01/18/20 06:25 Magnesium 1.9 mg/dL (1.7-2.8) 01/18/20 06:25 Total Bilirubin 0.7 mg/dL (0.2-1.0) 01/18/20 06:25 Direct Bilirubin 0.1 mg/dL (0.1-0.5) 01/18/20 06:25 AST 33 IU/L (10-42) 01/18/20 06:25 ALT 65 IU/L (10-60) H 01/18/20 06:25 Alkaline Phosphatase 131 IU/L (42-121) H 01/18/20 06:25 Troponin I High Sens 5.3 ng/L (2.3-19.7) 01/16/20 05:21 B-Natriuretic Peptide 19 pg/mL (5-100) 01/16/20 09:29 Total Protein 6.2 g/dL (6.7-8.2) L 01/18/20 06:25 Albumin 3.4 g/dL (3.2-5.5) 01/18/20 06:25 Globulin 2.8 g/dL (2.1-4.2) 01/18/20 06:25 Albumin/Globulin Ratio 1.1 (1.0-2.2) 01/15/20 15:08 Lipase 96 U/L (22-51) H 01/15/20 15:08 Vitamin B12 176 pg/mL (180-914) L 01/18/20 06:25 Urine Color Cancelled 01/15/20 17:30 Urine Clarity Cancelled 01/15/20 17:30 Urine pH Cancelled 01/15/20 17:30 Ur Specific [place] Cancelled 01/15/20 17:30 Urine Protein Cancelled 01/15/20 17:30 Urine Glucose (UA) Cancelled 01/15/20 17:30 Urine Ketones Cancelled 01/15/20 17:30 Urine Occult Blood Cancelled 01/15/20 17:30 Urine Nitrite Cancelled 01/15/20 17:30 Urine Bilirubin Cancelled 01/15/20 17:30 Urine Urobilinogen Cancelled 01/15/20 17:30 Ur Leukocyte Esterase Cancelled 01/15/20 17:30 Urine RBC 0-5 /HPF (0-5) 01/15/20 15:30 Urine RBC Cancelled 01/15/20 15:30 Urine WBC 0-3 /HPF (0-3) 01/15/20 15:30 Urine WBC Cancelled 01/15/20 15:30 Urine WBC Clumps Cancelled 01/15/20 15:30 Ur Epithelial Cells Cancelled 01/15/20 15:30 Ur Squamous Epith Cells Cancelled 01/15/20 15:30 Ur Squamous Epith Cells RARE Squamous (<= Few) 01/15/20 15:30 Urine Crystals Cancelled 01/15/20 15:30 Amorphous Sediment Cancelled 01/15/20 15:30 Urine Bacteria Cancelled 01/15/20 15:30 Urine Bacteria None Seen /HPF (None Seen) 01/15/20 15:30 Urine Casts Cancelled 01/15/20 15:30 Urine Starch Cancelled 01/15/20 15:30 Urine Mucus Cancelled 01/15/20 15:30 Urine Mucus Moderate Strands 01/15/20 15:30 Urine Trichomonas Cancelled 01/15/20 15:30 Urine Yeast Cancelled 01/15/20 15:30 Urine Sperm Cancelled 01/15/20 15:30 Ur Oval Fat Bodies Cancelled 01/15/20 15:30 Ur Microscopic Review Cancelled 01/15/20 17:30 Urine Culture Comments Cancelled 01/15/20 17:30 Urine Sodium < 12.0 mmol/L 01/15/20 17:30 Stl C. diff Tox B Gene NEGATIVE (NEGATIVE) 01/15/20 17:30 - Procedures Procedures: Procedures BYPASS ILEUM TO CUTANEOUS, OPEN APPROACH (01/01/20) EXCISION OF ASCENDING COLON, OPEN APPROACH (01/01/20) EXCISION OF DESCENDING COLON, OPEN APPROACH (01/01/20) EXCISION OF SIGMOID COLON, OPEN APPROACH (01/01/20) EXCISION OF SMALL INTESTINE, OPEN APPROACH (01/01/20) INSERTION OF INFUSION DEV INTO SUP VENA CAVA, PERC APPROACH (01/01/20)
[2020-01-18] MEDS: LATANOPROST 0.005% OPHTH DROPS EACHEYE SCH (21:58)
[2020-01-18] MEDS: ZOLPIDEM 5 MG TABLET PO PRN (23:51)
[2020-01-19] MEDS: LOPERAMIDE 2 MG CAPSULE PO SCH ×2 (07:37→11:56)
[2020-01-19] MEDS: LEVOTHYROXINE 100 MCG TABLET PO SCH (07:37)
[2020-01-19 07:46] LABS: BASOPHILS # (AUTO) 0.1 10^3/uL (0.0-0.1); BASOPHILS % (AUTO) 0.9 %; EOSINOPHILS # (AUTO) 0.6 10^3/uL (0.0-0.7); EOSINOPHILS % (AUTO) 7.4 %; HGB - HEMOGLOBIN 10.7 g/dL (14.0-18.0); LYMPHOCYTES # (AUTO) 1.7 10^3/uL (1.5-3.5); LYMPHOCYTES % (AUTO) 21.8 %; MEAN CORPUSCULAR HEMOGLOBIN 31.6 pg (27.0-31.0); MEAN CORPUSCULAR HGB CONC 33.1 g/dL (32.0-36.0); MEAN CORPUSCULAR VOLUME 95.3 fL (80.0-94.0); MEAN PLATELET VOLUME 9.6 fL (7.4-11.4); MONOCYTES # (AUTO) 0.6 10^3/uL (0.0-1.0); MONOCYTES % (AUTO) 7.8 %; NEUTROPHILS # (AUTO) 4.8 10^3/uL (1.5-6.6); NEUTROPHILS % (AUTO) 61.8 %; PLT - PLATELET COUNT 460 10^3/uL (130-450); RED BLOOD COUNT 3.39 10^6/uL (4.70-6.10); RED CELL DISTRIBUTION WIDTH 11.9 % (12.0-15.0); WHITE BLOOD COUNT 7.8 x10^3/uL (4.8-10.8)
[2020-01-19] MEDS: LACTATED RINGERS 1,000 ML IV SCH (07:48)
[2020-01-19] MEDS: SODIUM CHLORIDE FLUSH 0.9% 10 ML SYRINGE IVP SCH (07:49)
[2020-01-19] MEDS: DORZOLAMIDE/TIMOLOL OPHTH DROPS EACHEYE SCH (07:50)
[2020-01-19] MEDS: BRIMONIDINE 0.2% OPHTH DROPS 5 ML EACHEYE SCH (07:50)
[2020-01-19 07:56] LABS: CREATININE 1.2 mg/dL (0.6-1.2); MAGNESIUM 1.8 mg/dL (1.7-2.8); PHOSPHORUS 3.5 mg/dL (2.5-4.6)
[2020-01-19] MEDS ORDERED: CYANOCOBALAMIN 1,000 MCG/ML VIAL IM ONE (08:50)
[2020-01-19] MEDS: DIPHENOX/ATROPINE 2.5/0.025 MG TABLET PO SCH ×2 (09:07→12:52)
[2020-01-19] MEDS: ASPIRIN CHEW 81 MG TABLET PO SCH (09:09)
[2020-01-19] MEDS: HEPARIN 5,000 UNIT/ML VIAL SUBQ SCH (10:35)
--- NOTE | 2020-01-19 11:42 | ANESTHESIA PROCEDURE NOTE ---
Anesth Central Line Template - Central Line Central Line Preparation: Consent Obtained, Time out completed, Ultrasound used, Sterile prep and drape Central line location: Right Cephalic Central line type: PICC Single Lumen Central line catheter tip site resides: Unspecified upper vein access Central line aftercare: Secured, No complications, Bundle checklist complete, Pt tolerated well Other Info/Details: Attempted right arm PICC. Picc unable to be placed central, instead trimmed catheter to 18 cm and placed midline. No chest x ray confirmation needed. Site flushes easily and blood return noted.
[2020-01-19] MEDS ORDERED: FLU VACC QS2020-21(6MOS UP)/PF 60 MCG/0.5 ML SYRINGE IM ONE (12:00)
--- NOTE | 2020-01-19 13:13 | Discharge Plan ---
Discharge Plan Problem Reviewed?: Yes Disposition: Home, Self Care Condition: Fair Prescriptions: Loperamide [Imodium] 2 mg PO 0700,1100,1500,1900 #60 capsule Diphenoxylate/Atropine [Lomotil] 1 tab PO QID #60 tablet Diet: Regular Activity Restrictions: Activity as Tolerated Shower Restrictions: No Driving Restrictions: No Health Concerns: You were hospitalized for acute kidney failure from marked dehydration, which was caused by high volume of output from your intestines through the ostomy tube. You needed iv fluids for days and medicines to decrease the output from the ileostomy tube. You are being discharged with several new prescription medications and a new plan to be managed at the [facility] here as an outpatient, under the care of Dr Aicha Carpenter. Please resume your usual pre-hospital medications. The new prescriptions were electronically sent to your [facility] pharmacy in [place]. Plan of Treatment: As above. Care Goals: Improvement in symptoms and stabilization are the goals. Assessment: The patient understands and is agreeable with the plan. Follow-Up Care: [facility] - Wound/Ostomy, [facility] - Medical No Smoking: If you smoke, Please STOP! Call for help.
--- NOTE | 2020-01-19 13:20 | DISCHARGE SUMMARY ---
Discharge Summary Admit Date: 01/15/20 Discharge Date: 01/19/20 Discharging Provider: Dr Alessandra Rodgers Primary Care Provider: Dr Aicha Carpenter Code Status: Attempt Resuscitation Condition at Discharge: Fair Discharge Disposition: 01 Home, Self Care - HPI History of Present Illness: From the admission H&P of Dr Lan Gold: This is a 69-year-old white male, who lives half the year in [facility], had no PCP here, with a past medical history significant for hypertension, hypothyroidism who presents today after feeling faint and lightheaded. He was admitted here on December 31 for perforated viscus and underwent a right colon resection in mid ascending colon with anastomosis and diverting ileostomy. He was discharged on January 06. States had been doing well postoperatively except for a large amount of output from the ileostomy. He was changing the bag up to 8 times a day. He then began taking Imodium and he was changing the bag only 5- 6 times a day. He was seen at the general surgery office today and was referred to the emergency department after he was complaining of feeling faint and lightheaded. He states his symptoms began this morning at around 3 AM and he felt like he was dehydrated. He reports good oral intake over the past few days although he has had very minimal intake today. He reports no nausea or vomiting. Denies any abdominal pain. He has noticed decreased urine output over the past 2 days. He denies metallic taste in his mouth. He is taking lisinopril for hypertension. Reports no fevers, chills, chest pain, dyspnea. In the emergency department, he was found to be afebrile with a temperature of 36.5 C. His heart rate is in the 50s in sinus rhythm. His blood pressure was initially 107/57. He was not tachypneic and saturating well on room air. Labs were significant for a white count of 14.6, platelet count of 628, sodium of 121, potassium of 5.8, BUN of 80, and a creatinine of 4.2. His LFTs were also mildly elevated. He had an EKG performed shows sinus rhythm with diffuse ST elevations. He was given a liter of normal saline in the emergency department. Given the above findings, Hospitalist was consulted for admission. I did discuss goals of care with the patient and he would like to be a full code. - HOSPITAL COURSE Hospital Course: (1) Acute renal failure The admission BUN/creat of 80/4.2 improved slowly with iv hydration down to 23/1.3. This was approximately at his baseline. IV hydration continued until the diarrhea output decreased. (2) Hyperkalemia This resolved as the renal function improved. (3) Dehydration He appeared clinically improved each day as the dehydration resolved. (4) Hyponatremia He had hypovolemic hyponatremia and required iv hydration. The serum sodium improved slowly 121>> 129>> 137. (5) Diarrhea following gastrointestinal surgery The ostomy output decreased significantly with starting scheduled Lomotil and scheduled Imodium with alternating doses. He was seen in consult by General Surgery, and the impression was that he will need peripheral IV hydration after discharge. Dr. Aicha Carpenter then instructed that a PICC line be put in and that he be scheduled to have every other day or twice a week IV fluid infusions at the [facility] clinic with weekly lab draws. This information was given to the animal shelter manager for scheduling this at the [facility]. (6) Status post colectomy As per Hx. (7) Elevated LFTs The elevated LFTs improved, the etiology was unclear, most likely hepato-renal syndrome. (8) Vitamin B12 deficiency A low serum B12 level of 176 was noted on labs and he received im B12. (9) Hypothyroidism He was on his home dose of thyroid replacement here. (10) Glaucoma He was on his home doses of eyedrops. (11) Abnormal EKG Echo was done this admission, because of the diffuse ST elevations seen on EKG and it showed normal LV function, no evidence of pericardial effusion. This EKG finding is new since his prior ones from about 3 weeks ago, suggesting that either had trivial pericarditis with no effusion seen on Echo or he now has "early polarization". - ALLERGIES Allergies/Adverse Reactions: Allergies Allergy/AdvReac Type Severity Reaction Status Date / Time Hotvqtj-Ptn-Mta Reductase AdvReac Intermediate Cramps Verified 01/15/20 14:35 Inhibitor - MEDICATIONS Home Medications: Ambulatory Orders Medication Instructions Recorded Confirmed Brimonidine 0.2% Ophth Drops 1 drops EACHEYE BID 01/01/20 01/23/20 [Alphagan P 0.2% Ophth Drops] Dorzolamide HCl/Timolol Maleat 1 drops EACHEYE BID 01/01/20 01/23/20 [Dorzolamide-Timolol Eye Drops] Latanoprost 0.005% Ophth Drops 1 drops EACHEYE QPM 01/01/20 01/23/20 [Xalatan Ophth Drops] Aspirin Chewable [St Lj 81 mg PO DAILY 01/02/20 01/23/20 Aspirin] Allopurinol [Zyloprim] 300 mg PO DAILY 01/06/20 01/23/20 Ezetimibe [Zetia] 10 mg PO DAILY 01/06/20 01/23/20 Levothyroxine [Synthroid] 100 mcg PO QDAC 01/06/20 01/23/20 Lisinopril [Prinivil] 5 mg PO DAILY 01/06/20 01/23/20 Diphenoxylate/Atropine [Lomotil] 1 tab PO QID #60 tablet 01/19/20 01/23/20 Loperamide [Imodium] 2 mg PO 0700,1100,1500,1900 #60 01/19/20 01/23/20 capsule - PHYSICAL EXAM AT DISCHARGE General Appearance: positive: No acute distress, Alert Eyes Bilateral: positive: Normal inspection, EOMI ENT: positive: ENT inspection nml, No signs of dehydration Neck: positive: Nml inspection, No JVD Respiratory: positive: No respiratory distress, Breath sounds nml Cardiovascular: positive: Regular rate & rhythm, No murmur Abdomen: positive: Non-tender, No distention, Other (Ostomy bag in place) Skin: positive: Warm, Dry Extremities: positive: Non-tender, No pedal edema Neurologic/Psychiatric: positive: Oriented x3, Motor nml - LABS Result Diagrams: 01/19/20 07:38 01/19/20 07:38 - DIAGNOSTIC IMAGING Diagnostic Imaging Results: Final report reviewed - FOLLOW UP Follow Up: See [facility] clinic in 2 days. - TIME SPENT Time Spent in Discharge (Minutes): 60
[2020-01-19 13:36] VITALS: BP 162/74
== END 2020-01-19 14:35 | disposition home or self-care (01) | DRG 682 ==
LOC: ED 14:31 → MS3 15:52
PROVIDERS: ADMIT Internal Medicine; ATTEND Internal Medicine
PROC: 05HY33Z Insertion of Infusion Device into Upper Vein, Percutaneous Approach (ICD-10-PCS; principal; 2020-01-15)
DX: N17.9 Acute kidney failure, unspecified (principal); K76.7 Hepatorenal syndrome; E87.1 Hypo-osmolality and hyponatremia; I10 Essential (primary) hypertension; E03.9 Hypothyroidism, unspecified; E87.5 Hyperkalemia; E86.0 Dehydration; R19.7 Diarrhea, unspecified; E53.8 Deficiency of other specified B group vitamins; H40.9 Unspecified glaucoma; G47.30 Sleep apnea, unspecified; H91.90 Unspecified hearing loss, unspecified ear; M10.9 Gout, unspecified; R94.31 Abnormal electrocardiogram [ECG] [EKG]; Z98.0 Intestinal bypass and anastomosis status; Z93.2 Ileostomy status; Z79.82 Long term (current) use of aspirin; Z79.899 Other long term (current) drug therapy
CPT/HCPCS: 36415; 71045; 76770; 80048; 80053; 80076; 81001; 82607; 83605; 83690; 83735; 83880; 84100; 84300; 84484; 85025; 87493; 93005; 93306; 96360; 99285; A9270; J1815; J3490; J7120; 81003; 87086; 90686

== ENCOUNTER 2020-02-09 13:17 | Day surgery (SDC) | payer MEDICARE, OTHER ==
[2020-02-09] MEDS ORDERED: fentaNYL 250 MCG/5 ML VIAL IVP ONE (13:18)
[2020-02-09] MEDS ORDERED: MIDAZOLAM 2 MG/2 ML VIAL IVP ONE (13:18)
[2020-02-09] MEDS ORDERED: LACTATED RINGERS 1,000 ML IV ONE ×2 (13:33→16:35)
[2020-02-09 17:19] VITALS: BP 118/73
== END 2020-02-09 13:18 | disposition home or self-care (01) ==
LOC: SDS 13:17
PROVIDERS: ATTEND Surgery
PROC: 0DJD8ZZ Inspection of Lower Intestinal Tract, Via Natural or Artificial Opening Endoscopic (ICD-10-PCS; principal; 2020-02-09 14:15)
DX: Z09 Encounter for follow-up examination after completed treatment for conditions other than malignant neoplasm (principal); Z87.19 Personal history of other diseases of the digestive system; Z93.3 Colostomy status; Z93.2 Ileostomy status; Z90.49 Acquired absence of other specified parts of digestive tract; I10 Essential (primary) hypertension; K52.89 Other specified noninfective gastroenteritis and colitis; K62.89 Other specified diseases of anus and rectum
CPT/HCPCS: 44388; J3010; J7120

== ENCOUNTER 2020-02-13 08:26 | Outpatient (CLI) | payer MEDICARE ==
[2020-02-13] MEDS ORDERED: IOVERSOL 320 100 ML VIAL IVP ONE ×2 (08:45→11:41)
[2020-02-13] MEDS ORDERED: IOVERSOL 320 50 ML VIAL ONE ×2 (08:45)
[2020-02-13] MEDS ORDERED: IOVERSOL 320 50 ML VIAL PO ONE (11:41)
--- NOTE | 2020-02-13 14:57 | CT Report ---
PROCEDURE: Abdomen/Pelvis W INDICATIONS: ILEOSTOMY REVERSAL CONTRAST: IV CONTRAST: Optiray 320 ml: 100 PO CONTRAST: *NO PO CONTRAST ml50 TECHNIQUE: After the administration of nonionic contrast, 5 mm thick sections acquired from the diaphragms to th e symphysis. 5 mm thick coronal and sagittal reformats were acquired. For radiation dose reduction, the following was used: automated exposure control, adjustment of mA and/or kV according to patient size. Rectal contrast was administered. COMPARISON: 01/01/2020 CT abdomen/pelvis. FINDINGS: Image quality: Excellent. ABDOMEN: Lung bases: Lung bases are clear. Heart size is normal. Solid organs: Liver and spleen are normal in size and enhancement. Gallbladder appears normal Bili steve system is non dilated. Pancreas enhances normally. No adrenal nodules. Kidneys demonstrate nor mal size and enhancement, without hydronephrosis. Peritoneum and bowel: Bowel loops demonstrate normal wall thickness and caliber. No free fluid or a ir. There is a right mid abdomen ostomy site, morphologically and ileostomy in the colon more distal ly appears normal. Nodes and vessels: No retroperitoneal or mesenteric adenopathy by size criteria. Aorta and inferior vena cava are normal in size. Miscellaneous: No ventral hernias. PELVIS: Genitourinary: Bladder wall thickness is normal. Miscellaneous: No inguinal hernias or adenopathy. Bones: No suspicious bony lesions. No vertebral body compression fractures. IMPRESSION: Ileostomy right mid abdomen, near the midline. Colon traverses and is well visualized by administration of rectal contrast. The colon and small bowel is well visualized for surgical plannin g. Reviewed by: Maciej Roach MD on 02/13/2020 2:56 PM PST Approved by: Maciej Roach MD on 02/13/2020 2:56 PM PST Station ID: [id number]
== END 2020-02-13 08:27 | disposition home or self-care (01) ==
LOC: DI 08:26
PROVIDERS: ATTEND Surgery
DX: Z93.2 Ileostomy status (principal)
CPT/HCPCS: 74177; Q9967

== ENCOUNTER 2020-03-05 14:34 | Outpatient (CLI) | payer MEDICARE | END 2020-03-05 14:35 | disposition home or self-care (01) | LOC: LAB 14:34 | PROVIDERS: ATTEND Surgery | DX: Z01.812 Encounter for preprocedural laboratory examination (principal); Z93.2 Ileostomy status; Z20.828 Contact with and (suspected) exposure to other viral communicable diseases ==

== ENCOUNTER 2020-03-08 07:30 | Inpatient (IN) | payer MEDICARE ==
[2020-03-08] MEDS ORDERED: LACTATED RINGERS 1,000 ML IV ONE ×3 (08:28→15:25)
[2020-03-08] MEDS ORDERED: GABAPENTIN 400 MG CAPSULE ONE (08:40)
[2020-03-08] MEDS ORDERED: CELECOXIB 100 MG CAPSULE PO ONE (08:40)
[2020-03-08] MEDS ORDERED: ceFAZolin 2 GM/50 ML 2 GM/50 ML BAG IV ONE (08:40)
[2020-03-08] MEDS ORDERED: ACETAMINOPHEN 1,000 MG/100 ML 100 ML IV ONE (08:41)
--- NOTE | 2020-03-08 10:03 | ANESTHESIA ---
Pre-Anesthesia VS, & Labs - Diagnosis presence of ileostomy - Procedure ileostomy take down Vital Signs: Temp Pulse Resp BP Pulse Ox 36.3 C L 66 12 155/84 H 99 03/08/20 08:47 03/08/20 08:47 03/08/20 08:47 03/08/20 08:47 03/08/20 08:47 Height: 6 ft Weight (kg): 86.7 kg Body Mass Index: 25.9 BMI Classification: Overweight - NPO >8 hours Home Medications and Allergies Brimonidine 0.2% Ophth Drops [Alphagan P 0.2% Ophth Drops] 1 drops EACHEYE BID 01/01/20 Dorzolamide HCl/Timolol Maleat [Dorzolamide-Timolol Eye Drops] 1 drops EACHEYE BID 01/01/20 Latanoprost 0.005% Ophth Drops [Xalatan Ophth Drops] 1 drops EACHEYE QPM 01/01/20 Aspirin Chewable [St Lj Aspirin] 81 mg PO DAILY 01/02/20 Allopurinol [Zyloprim] 300 mg PO DAILY 01/06/20 Ezetimibe [Zetia] 10 mg PO DAILY 01/06/20 Levothyroxine [Synthroid] 100 mcg PO QDAC 01/06/20 Lisinopril [Prinivil] 5 mg PO DAILY 01/06/20 Allergies/Adverse Reactions: Allergies Allergy/AdvReac Type Severity Reaction Status Date / Time [id number]-[id number] Reductase AdvReac Intermediate Cramps Verified 01/15/20 14:35 Inhibitor Anes History & Medical History - Anesthetic History Anesthesia Complications: reports: No previous complications - Medical History Cardiovascular: reports: Hypertension Pulmonary: reports: Sleep apnea (does not use cpap) Gastrointestinal: reports: Colon polyps Urinary: reports: None Neuro: reports: None Musculoskeletal: reports: Gout Endocrine/Autoimmune: reports: HyPOthyroidism Blood Disorders: reports: None Skin: reports: None Smoking Status: Never smoker Psychosocial: reports: No issues indicated - Surgical History General: Bowel surgery, Other Eyes Ears Nose Throat (EENT): Other Cardiothoracic: Vascular surgery Exam General: Alert, Oriented x3, Cooperative, No acute distress Dental: Poor dentition Mouth Openin Fingerbreadth Neck Mobility: Normal Mallampati classification: II Mental/Cognitive Status: Alert/Oriented X3, Normal for patient Plan Anesthesia Type: General, Transverse Abdominis Plane (TAP) Block Consent for Procedure(s) Verified and Reviewed: Yes Code Status: Attempt Resuscitation ASA classification: 2-Mild systemic disease Is this case an emergency?: No
--- NOTE | 2020-03-08 10:48 | SURGERY HX AND PHYSICAL(T) ---
Surgical History & Physical - Chief Complaint/HPI Chief Complaint: History of loop ileostomy History of Present Illness: 69-year-old male presenting with SIRS/sepsis secondary to large intra-abdominal abscess initially thought secondary to fistulizing enteritis however operative intervention revealed a large phlegmon with multiple bowel loops involved. Ultimately the patient necessitated right colectomy and left colectomy together with proximal loop ileostomy for what was ultimately a complicated appendicitis on final pathology although intraoperatively the associated colitis, mesenteric adenitis/panniculitis, and multiple fistulous communications were concerning for either malignancy and/or inflammatory bowel disease. Patient had undergone laparoscopic assisted intervention with mini laparotomy as well. Diverting loop ileostomy was also performed. Patient was maintained on antibiotics. Postoperatively he necessitated fluid resuscitation on a regular basis for dehydration. He presents today for ileostomy takedown. He is undergoing preoperative imaging which was without any concerns for anastomotic compromise following a preoperative colonoscopy that showed an intact colocolostomy/coloproctostomy as well as an intact ileotransverse proctostomy. - PMH/PSH/Social Hx Does the pt have a hx of MRSA?: No Neurological History: None Eyes, Ears, Nose, Throat: Chronic vision loss, Chronic hearing loss Cardiovascular: Hypertension Respiratory: Sleep apnea (does not use cpap) Skin: None Endocrine/Autoimmune: HyPOthyroidism Gastrointestinal: Colon polyps Urinary: None Musculoskeletal: Gout Blood Disorders: None Psychiatric: None General: Bowel surgery, Other Cardiothoracic: Vascular surgery Eyes Ears Nose Throat (EENT): Other Smoking Status: Never smoker Does the pt drink ETOH?: Yes Frequency: Occasional Does the pt have substance abuse?: No - Home Meds and Allergies Home Medications: Brimonidine 0.2% Ophth Drops [Alphagan P 0.2% Ophth Drops] 1 drops EACHEYE BID 01/01/20 Dorzolamide HCl/Timolol Maleat [Dorzolamide-Timolol Eye Drops] 1 drops EACHEYE BID 01/01/20 Latanoprost 0.005% Ophth Drops [Xalatan Ophth Drops] 1 drops EACHEYE QPM 01/01/20 Aspirin Chewable [St Lj Aspirin] 81 mg PO DAILY 01/02/20 Allopurinol [Zyloprim] 300 mg PO DAILY 01/06/20 Ezetimibe [Zetia] 10 mg PO DAILY 01/06/20 Levothyroxine [Synthroid] 100 mcg PO QDAC 01/06/20 Lisinopril [Prinivil] 5 mg PO DAILY 01/06/20 Allergies/Adverse Reactions: Allergies Allergy/AdvReac Type Severity Reaction Status Date / Time Oqvbbna-Ein-Fwm Reductase AdvReac Intermediate Cramps Verified 01/15/20 14:35 Inhibitor - Review of Systems Constitutional: Fatigue, Weakness Respiratory: No: Shortness of breath, Cough Gastrointestinal: Other (Continues to receive supplemental IV fluids for history of diverting loop ileostomy in the setting of double resection/right and left colectomy.). No: Nausea, Vomiting, Difficulty swallowing, Abdominal pain Gentinourinary: No: Dysuria - Vital Signs Heart Rate: 66 Blood Pressure: 155/84 Temperature: 36.3 C Respiratory Rate: 12 O2 Saturation: 99 Weight (kg): 86.7 kg Height: 1.83 m - Physical Exam General Appearance: positive: No acute distress, Alert Eyes Bilatera: positive: Normal inspection, PERRL, EOMI ENT: positive: ENT inspection nml Neck: positive: Nml inspection Respiratory: positive: Chest non-tender, No respiratory distress, Breath sounds nml Cardiovascular: positive: Regular rate & rhythm Abdomen: positive: Non-tender. negative: No distention, Tenderness, Guarding, Rebound Skin: positive: Color nml Extremities: positive: Non-tender, Full ROM, Nml appearance Neurologic/Psychiatric: positive: Oriented x3, CN's nml (2-12), Motor nml, Sensation nml, Mood/affect nml - Patient Review Patient Review: Problems were reviewed with the patient during this visit. Medications were reviewed with the patient during this visit. Allergies were reviewed this patient during this visit. Pertinent Tests Reviewed: All pertitent test for this patient were reviewed. - Assessment & Plan Assessment and Plan: Assessment and plan: 69-year-old male with history of carotid endarterectomy who presented with sepsis abdominal source large phlegmon/abscess multiple fistulas involving both the left and right colon ultimately secondary to a complicated perforated appendicitis. Underwent laparoscopic assisted/mini laparotomy with left and right colectomy's. Status post proximal diverting loop ileostomy. Postoperative course notable for prerenal acute renal failure secondary to dehydration for which the patient has been undergoing regular fluid boluses scheduled. Status post colonoscopy and preoperative imaging with no concern for contraindication to proceeding with loop ileostomy takedown. Risk and benefit discussed questions answered informed consent obtained. Plan going forward is as follows: 1. Small bowel resection, ileostomy takedown, parastomal hernia repair, tap block per anesthesia 2. Local wound care to ileostomy takedown site explained to the patient 3. Await bowel function with hospital admission for pain control and fluid resuscitation 4. Patient will need interval colonoscopy following prep for formal screening colonoscopy Impression CT abdomen pelvis: Ileostomy right mid abdomen, near the midline. Colon Traverses and is well visualized by administration of rectal contrast. The colon and small bowel is well visualized for surgical planning. Peritoneum and bowel: Bowel loops demonstrate normal wall thickness and caliber. No free fluid or air. There is a right mid abdomen ostomy site, morphologically and ileostomy; the colon more distally appears normal. No retroperitoneal or mesenteric adenopathy. No abscesses or other fluid collections.
[2020-03-08] MEDS ORDERED: fentaNYL 100 MCG/2 ML VIAL IVP PRN (11:26)
[2020-03-08] MEDS ORDERED: HYDROmorphone 0.5 MG/0.5 ML SYRINGE IVP PRN ×2 (11:26→15:21)
[2020-03-08] MEDS ORDERED: ATROPINE ABBOJECT 1 MG/10 ML SYRINGE IVP PRN (11:26)
[2020-03-08] MEDS ORDERED: ONDANSETRON 4 MG/2 ML VIAL IVP PRN (11:26)
[2020-03-08] MEDS ORDERED: MORPHINE 2 MG/ML CARPUJECT IVP PRN (11:26)
[2020-03-08] MEDS ORDERED: NALOXONE 0.4 MG/ML VIAL IVP PRN (11:26)
[2020-03-08] MEDS ORDERED: LACTATED RINGERS 1,000 ML IV SCH (12:00)
[2020-03-08] MEDS ORDERED: LIDOCAINE-MPF 2% 5 ML VIAL ONE (13:26)
[2020-03-08] MEDS ORDERED: ROCURONIUM 50 MG/5 ML VIAL ONE ×2 (13:26→14:12)
[2020-03-08] MEDS ORDERED: PROPOFOL 200 MG/20 ML VIAL IVP ONE (13:26)
[2020-03-08] MEDS ORDERED: ROPIVACAINE 0.5% PF 20 ML AMPULE ONE (13:26)
[2020-03-08] MEDS ORDERED: fentaNYL 100 MCG/2 ML VIAL ONE (13:27)
[2020-03-08] MEDS ORDERED: MIDAZOLAM 2 MG/2 ML VIAL ONE (13:27)
[2020-03-08] MEDS ORDERED: BUPIVACAINE 0.5%-EPI 1:200000 PF 30 ML VIAL SUBQ ONE (13:56)
[2020-03-08] MEDS ORDERED: ePHEDrine 50 MG/ML VIAL IVP ONE (14:57)
--- NOTE | 2020-03-08 15:43 | OPERATIVE REPORT ---
Operative Report - General Admit Date: 03/08/20 Procedure Date: 03/08/20 Planned Procedure: 1. Ileostomy takedown 2. Small bowel resection 3. Adhesiolysis 4. Repair of parastomal hernia 5. Drain placement 6. Tap block Pre-Op Diagnosis: History of loop ileostomy, history of peritonitis, status post right colect Procedure Performed: 1. Ileostomy takedown 2. Small bowel resection 3. Adhesiolysis 4. Repair of parastomal hernia 5. Drain placement 6. Tap block Post Op Diagnosis: Same, viable enteroenterostomy, abdominal adhesions. - Procedure Note Primary Surgeon: Leo Secondary Surgeon: Angely Anesthesia Provider: Oren Anesthesia Technique: General ET tube, Local Pathology: Loop ileostomy Estimated Blood Loss (mL): 10 Drain/Tube Type: Yefri drain Indications: See H&P as well as clinic notes within the EMR Findings: 1. Adhesions, parastomal addressed by adhesiolysis 2. Viable enteroenterostomy after ileostomy takedown, loop 3. Repair parastomal hernia without any complication Complications: None - Other Other Information/Narrative: TAKEDOWN OF DIVERTING LOOP ILEOSTOMY: The patient was taken to the operating room, placed supine on the operating table (or in Cosme stirrups if endoscopy performed), placed for bilateral lower extremity serial compression devices and induced for general endotracheal anesthesia. Patient had already undergone preoperative colonoscopy as well as preoperative CT imaging with rectal contrast for which the there was no concern for any contraindication to proceeding with operative intervention. Once this was completed, ostomy appliance was taken off the abdomen and using a Vicryl suture, the proximal limb of diverting loop ileostomy was ligated in order to prevent intraoperative spillage. A Lancaster catheter was placed. The abdomen was prepped and draped in the usual sterile fashion and perioperative antibiotics were given within an hour of surgical incision. Surrounding the diverting loop ileostomy using a scalpel, the mucocutaneous junction was incised outside of the mucus border and this was taken down through to the superficial subcutaneous fat with Bovie electrocautery. Once this was completed, using sharp dissection and Bovie electrocautery the diverting loop ileostomy was dissected free from the surrounding adhesions again sharply with scalpel & Metzenbaum scissors as well as Bovie electrocautery dissection, using great care to avoid injury to the small intestine. This was taken down through to the level of fascia. This was incised and ultimately the ileostomy was freed from its surrounding attachments and any adhesions were appropriately lysed. Additional adhesiolysis was necessary for appropriate prolapse of the diverting loop ileostomy and after this was completed, we chose points of transection and after dividing and ligating the intervening mesentery, the small intestine was divided using a linear cutting stapler. The ileostomy was sent for permanent pathology. Once this was completed, Allis clamps were placed along the antimesenteric staple lines of both ends. These were incised and divided using curved Callejas scissors and thereafter limbs of the linear cutting stapler were placed through both enterotomies and the [id number]-[id number] anastomosis was created. There was no bleeding, and after the stapler was fired, two seromuscular crotch stitches were placed in order to relieve any tension. Thereafter, the enterotomies were closed in two layers, first with a Isabel running suture, followed by interrupted Lembert stitches of 2-0 Vicryl. The anastomosis was widely patent, intact, with no ischemic changes noted. Please note that the anastomosis was closed for its mesenteric defect. Moreover the anastomosis was evaluated, viable, peristaltic, widely patent. At this time, the enteroenterostomy was reduced into the abdominal cavity through the Rubin wound ring and please note glove change and instrument change were performed proceeding from "dirty" to "clean" to avoid any complications as it relates to infectious compromise. An 18 Australian Yefri drain was placed within the abdomen after it was irrigated extensively with 2 L of warm saline which aspirated clear. This drain was placed through the right lower quadrant and secured in place with 2-0 nylon. The fascia at the level of the ileostomy site and the parastomal hernia was closed bidirectionally with 0 PDS without any complication. We proceeded to perform creation of dermal flaps and thereafter closed the skin and subcutaneous fat in a running deep dermal pursestring. At this time the wound was packed with quarter inch packing strip 1 continuous length. Patient tolerated procedure well which was no complication. I was present for the entirety of this operative intervention. All counts for sponges needles were correct at the conclusion of this operative case. Please note that tap blocks were performed per anesthesia. I was physically present for the entirety of the surgical procedure as indicated above.
[2020-03-08] MEDS ORDERED: CIPROFLOXACIN 400 MG/200 ML 400 MG/200 ML BAG IV SCH (16:00)
[2020-03-08] MEDS ORDERED: metroNIDAZOLE 500 MG/100 ML 500 MG/100 ML BAG IV SCH (16:00)
[2020-03-08] MEDS: D5NS W/20 MEQ KCL 1,000 ML IV SCH (16:09)
[2020-03-08] MEDS: metroNIDAZOLE 500 MG/100 ML 500 MG/100 ML BAG IV SCH ×2 (16:10→22:34)
[2020-03-08] MEDS: CIPROFLOXACIN 400 MG/200 ML 400 MG/200 ML BAG IV SCH (17:18)
--- NOTE | 2020-03-08 17:24 | PHARMACY PROGRESS NOTE ---
- Best Possible Medication History Admit Date and Time: 03/08/20 0826 Processed by: Pharmacy Medication History completed: Yes Patient Interview: Completed Secondary Source(s): Pharmacy records, Insurance records As the person ultimately responsible for medication therapy, providers are able to order a medication from an existing home medication list in [facility] via the "Reconcile Routine" prior to Confirmation of that medication by ground crewman mission support. Such practice is discouraged except when the physician, in their clinical judgment, deems that a medical need exists for a medication without regard to previous use.
[2020-03-08] MEDS: methocarbamoL 500 MG TABLET PO SCH (18:56)
[2020-03-08] MEDS: METOCLOPRAMIDE 10 MG/2 ML VIAL IVP SCH (18:57)
[2020-03-08] MEDS: BRIMONIDINE 0.2% OPHTH DROPS 5 ML EACHEYE SCH (20:43)
[2020-03-08] MEDS: polyethylene glycoL 3350 17 GM PACKET PO SCH (20:44)
[2020-03-08] MEDS: DOCUSATE SODIUM 100 MG CAPSULE PO SCH (20:45)
[2020-03-08] MEDS: DORZOLAMIDE/TIMOLOL OPHTH DROPS EACHEYE SCH (20:45)
[2020-03-08] MEDS: LATANOPROST 0.005% OPHTH DROPS EACHEYE SCH (20:45)
[2020-03-09] MEDS: methocarbamoL 500 MG TABLET PO SCH ×4 (00:09→17:10)
[2020-03-09] MEDS: D5NS W/20 MEQ KCL 1,000 ML IV SCH ×3 (00:09→18:29)
[2020-03-09] MEDS: METOCLOPRAMIDE 10 MG/2 ML VIAL IVP SCH ×4 (00:09→17:10)
[2020-03-09 05:25] LABS: BASOPHILS % (AUTO) 0.2 %; EOSINOPHILS # (AUTO) 0.1 10^3/uL (0.0-0.7); EOSINOPHILS % (AUTO) 0.7 %; LYMPHOCYTES # (AUTO) 1.2 10^3/uL (1.5-3.5); LYMPHOCYTES % (AUTO) 11.1 %; MEAN CORPUSCULAR HEMOGLOBIN 32.5 pg (27.0-31.0); MEAN CORPUSCULAR HGB CONC 33.9 g/dL (32.0-36.0); MEAN CORPUSCULAR VOLUME 95.8 fL (80.0-94.0); MEAN PLATELET VOLUME 9.4 fL (7.4-11.4); MONOCYTES # (AUTO) 0.6 10^3/uL (0.0-1.0); NEUTROPHILS # (AUTO) 8.5 10^3/uL (1.5-6.6); NEUTROPHILS % (AUTO) 81.8 %; PLT - PLATELET COUNT 198 10^3/uL (130-450); RED BLOOD COUNT 3.08 10^6/uL (4.70-6.10); RED CELL DISTRIBUTION WIDTH 13.4 % (12.0-15.0); WHITE BLOOD COUNT 10.4 x10^3/uL (4.8-10.8)
[2020-03-09] MEDS: metroNIDAZOLE 500 MG/100 ML 500 MG/100 ML BAG IV SCH ×3 (05:35→22:16)
[2020-03-09 05:38] LABS: ALBUMIN 3.5 g/dL (3.2-5.5); ALBUMIN/GLOBULIN RATIO 1.5 (1.0-2.2); BILIRUBIN,TOTAL 1.3 mg/dL (0.2-1.0); CALCIUM 8.5 mg/dL (8.5-10.3); CREATININE 1.1 mg/dL (0.6-1.2); TOTAL PROTEIN 5.9 g/dL (6.7-8.2)
[2020-03-09] MEDS: PANTOPRAZOLE 40 MG TABLET PO SCH (05:53)
[2020-03-09] MEDS: LEVOTHYROXINE 100 MCG TABLET PO SCH (05:53)
[2020-03-09] MEDS ORDERED: EZETIMIBE 10 MG TABLET PO SCH (09:00)
[2020-03-09] MEDS: DOCUSATE SODIUM 100 MG CAPSULE PO SCH ×2 (10:25→21:05)
[2020-03-09] MEDS: allopurinoL 100 MG TABLET PO SCH (10:25)
[2020-03-09] MEDS: CIPROFLOXACIN 400 MG/200 ML 400 MG/200 ML BAG IV SCH ×2 (10:26→21:07)
[2020-03-09] MEDS: ENOXAPARIN 40 MG/0.4 ML SYRINGE SUBQ SCH (10:26)
[2020-03-09] MEDS: lisinopriL 5 MG TABLET PO SCH (10:26)
[2020-03-09] MEDS: BRIMONIDINE 0.2% OPHTH DROPS 5 ML EACHEYE SCH ×2 (10:26→21:06)
[2020-03-09] MEDS: polyethylene glycoL 3350 17 GM PACKET PO SCH ×2 (10:27→21:06)
[2020-03-09] MEDS: DORZOLAMIDE/TIMOLOL OPHTH DROPS EACHEYE SCH ×2 (10:27→21:06)
[2020-03-09] MEDS: POTASSIUM CHLOR 10 MEQ/100 ML 10 MEQ/100 ML BAG IV SCH ×3 (15:10→17:09)
--- NOTE | 2020-03-09 16:44 | PROVIDER PROGRESS NOTE ---
Progress Note Subjective: Post Operative day #1 status post below listed procedure. No nausea no vomiting. No bowel function. Neither flatus no bowel movement. Eager for more p.o. intake. Report of heart block on telemetry. Denies chest pain denies shortness of breath. Pre-Op Diagnosis: History of loop ileostomy, history of peritonitis, status post right colectomy and anterior resection Procedure Performed: 1. Ileostomy takedown 2. Small bowel resection 3. Adhesiolysis 4. Repair of parastomal hernia 5. Drain placement 6. Tap block Objective: Hemodynamically acceptable General Appearance: positive: No acute distress Eyes Bilateral: positive: Normal inspection ENT: positive: ENT inspection nml Neck: positive: Nml inspection Respiratory: positive: Chest non-tender, No respiratory distress, Breath sounds nml. negative: Wheezes, Rales, Rhonchi Cardiovascular: positive: Regular rate & rhythm Abdomen: positive: No distention, Other. negative: Guarding, Rebound Extremities: positive: Non-tender, Full ROM, Nml appearance Neurologic/Psychiatric: positive: Oriented x3, CN's nml (2-12) Abdomen appropriately tender, historic stoma site dressed. MATT serosanguineous. Impression/Plan: Postoperative day #1 status post above listed procedure. Awaiting bowel function. Telemetry changes however denies chest pain or shortness of breath. (1) GI - IVF, bowel regimen, advance diet as tolerated. GI ppx. Anticipate ileus. Opiate sparring analgesia. (2) SURGERY - Continue MATT. Continue daily packing strips to historic ileostomy site. (3) Renal/Lytes - continue IVF. Renal indices within normal limits. History of prerenal acute renal failure secondary to high ileostomy output. Appears to be at baseline. Anticipate this will resolve now that the patient is restored for intestinal continuity. (4) Respiratory - O2 as necessary. Continue IS. (5) Heme - Will continue with DVT ppx. H/H stable. (6) Cardiovascular - HD acceptable. Obtain EKG, troponin, continue telemetry, will appreciate hospitalist consult. (7) Neuro - Opiate sparring analgesia. Antispasmodics with Robaxin. Will avoid Toradol given a history of renal failure. Neuropathic agents. (8) Immune/Infectious Disease - Perioperative antibiotics with Cipro and Flagyl given contaminated wound.
[2020-03-09] MEDS ORDERED: MAGNESIUM SULFATE 2 GRAM 2 GM/50 ML BAG IV ONE (18:30)
--- NOTE | 2020-03-09 20:10 | CONSULTATION NOTE ---
Referring Provider Name of Referring Provider:: Dr Wolfgang Bailey Chief Complaint - Chief Complaint Chief Complaint: intermittent 2nd Degree AV Block Type II History of Present Illness - Admitted From Admitted From:: [facility] ED - History Obtained From Records Reviewed: Yes History obtained from: patient - History of Present Illness HPI Comment/Other: Patient is a 69 y/o male with past medical history significant for hypertension and hypothyroidism who was admitted by general surgery and underwent a loop ileostomy takedown. This had been placed when patient was diagnosed and treated for sepsis, found to be due to a large phlegmon/abscess with multiple fistulas involving both the left and right colon. This was ultimately concluded to be due to a complicated perforated appendicitis. The surgery was successful and patient is resting comfortably in bed. However at some point in the course of the day the patient had an intermittent/brief episode of second-degree AV block type II on telemetry. As a result the hospitalist service was consulted. Currently at bedside he is awake and resting comfortably. He denies chest pain, dyspnea, abdominal pain, nausea, vomiting, fever or chills. He has tenderness to palpation at the surgical site. He has MATT drainage tube at the surgical site which is draining slightly cloudy brownish/serous fluid. Previous EKGs had indicated the patient has a first-degree AV block. He was not experiencing any symptoms at the time of the finding on telemetry. There were no significant findings on labs except for a magnesium level of 1.6. The patient's vitals have been stable. History - Past Medical History Cardiovascular: reports: Hypertension Respiratory: reports: Sleep apnea Neuro: reports: None Endocrine/Autoimmune: reports: HyPOthyroidism GI: reports: Colon polyps : reports: None HEENT: reports: Chronic vision loss, Chronic hearing loss Psych: reports: None Musculoskeletal: reports: Gout Derm: reports: None MRSA Hx?: No - Past Surgical History General: reports: Bowel surgery, Other Cardiovascular: reports: Vascular surgery HEENT: reports: Other - Family & Social History Family History Comment/Other: He reports his father had renal cancer. He was a smoker. Living Situation: With family Social History Notes: He lives at home with his daughter and her partner. He normally spends time in [place] but he was here visiting his mother as she was at the end of her life when she passed earlier this year. His unfortunately is stuck and [place] as the borders are closed due to the coronavirus pandemic. He is a non-smoker. He has not drank alcohol recently. - POLST Patient has POLST: Yes POLST Status: Full Code Meds/Allgy - Home Medications Home Medications: Ambulatory Orders Medication Instructions Recorded Confirmed Brimonidine 0.2% Ophth Drops 1 drops EACHEYE BID 01/01/20 03/08/20 [Alphagan P 0.2% Ophth Drops] Dorzolamide HCl/Timolol Maleat 1 drops EACHEYE BID 01/01/20 03/08/20 [Dorzolamide-Timolol Eye Drops] Latanoprost 0.005% Ophth Drops 1 drops EACHEYE QPM 01/01/20 03/08/20 [Xalatan Ophth Drops] Ezetimibe [Zetia] 10 mg PO DAILY 01/06/20 03/08/20 Levothyroxine [Synthroid] 100 mcg PO QDAC 01/06/20 03/08/20 Lisinopril [Prinivil] 5 mg PO DAILY 01/06/20 03/08/20 allopurinoL [Zyloprim] 25 mg PO DAILY 03/08/20 03/08/20 - Allergies Allergies/Adverse Reactions: Allergies Allergy/AdvReac Type Severity Reaction Status Date / Time [id number] Reductase AdvReac Intermediate Cramps Verified 01/15/20 14:35 Inhibitor Review of Systems - Constitutional Constitutional: denies: Fatigue, Fever, Chills - Eyes Eyes: denies: Pain, Vision loss, Dipolpia - Ears, Nose & Throat Ears, Nose & Throat: denies: Ear pain, Vertigo, Sore throat - Cardiovascular Cariovascular: denies: Irregular heart rate, Palpitations, Chest pain, Edema, Lightheadedness, Syncope, Exertional dyspnea - Respiratory Respiratory: denies: Cough, Sputum production, Wheezing, SOB at rest, SOB with exertion - Gastrointestinal Gastrointestinal: reports: Abdominal pain (to palpation around surgical site.). denies: Abdominal distention, Constipation, Diarrhea, Nausea, Vomiting, Reflux/heartburn - Genitourinary Genitourinary: denies: Dysuria, Frequency, Urgency, Hematuria - Musculoskeletal Musculoskeletal: denies: Muscle pain, Back pain, Muscle aches - Integumentary Integumentary: denies: Rash, Pruritis, Lesions - Neurological Neurological: denies: General weakness, Focal weakness, Headache, Dizziness - Psychiatric Psychiatric: denies: Depression, Anxiety - Endocrine Endocrine: denies: Polyuria, Polydypsia - Hematologic/Lymphatic Hematologic/Lymphatic: denies: Anemia, Bruising, Petechiae Exam - Vital Signs Vital Signs: Vital Signs x48h Temp Pulse Resp BP Pulse Ox 03/09/20 17:00 36.9 C 72 18 162/77 H 97 - Physical Exam General Appearance: positive: Alert, Mild distress, Moderate distress Eyes Bilateral: positive: PERRL, EOMI ENT: positive: No signs of dehydration Neck: positive: No JVD, Trachea midline Respiratory: positive: Chest non-tender, No respiratory distress, Breath sounds nml. negative: Wheezes, Rales, Rhonchi Cardiovascular: positive: Regular rate & rhythm, No murmur, No gallop Abdomen: positive: No organomegaly, Nml bowel sounds, No distention, Tenderness (around surgical site). negative: Guarding, Rebound Back: positive: Nml inspection Skin: positive: Color nml, No rash, Warm, Dry Extremities: positive: Non-tender, Full ROM, Nml appearance, No pedal edema Neurologic/Psychiatric: positive: Oriented x3, CN's nml (2-12), Mood/affect nml Conclusion/Plan - Diagnosis Diagnosis: Second-degree AV block type II. Hypothyroidism. Hypertension. Sepsis/complicated perforated appendicitis - Plan Plan: 1.Second-degree AV block type II Intermittent/Brief. Patient has known first-degree AV block. Patient is on telemetry. We will continue to monitor. Troponin was negative. Patient's magnesium of 1.6 was replaced. We will also check phosphorus level in the morning. Patient's dorzolamide/timolol held for now. 2.Hypothyroidism Will check TSH and adjust patient's Synthroid accordingly. Patient currently takes 100 mcg of Synthroid qdAC 3.Hypertension On lisinopril. We will continue. 4.Sepsis/complicated perforated appendicitis Patient underwent surgery 2 months ago and had diverging ileostomy placed. Patient came in for an ileostomy takedown which was done yesterday This is being managed by Dr. Wolfgang Bailey the general surgeon (primary team) - Lab Results Fish Bones: 03/09/20 05:20 03/09/20 05:20
[2020-03-09] MEDS: LATANOPROST 0.005% OPHTH DROPS EACHEYE SCH (21:06)
[2020-03-10] MEDS: methocarbamoL 500 MG TABLET PO SCH ×4 (00:08→19:13)
[2020-03-10] MEDS: METOCLOPRAMIDE 10 MG/2 ML VIAL IVP SCH ×4 (00:09→19:14)
[2020-03-10] MEDS: D5NS W/20 MEQ KCL 1,000 ML IV SCH ×2 (03:40→13:40)
[2020-03-10] MEDS: ONDANSETRON 4 MG/2 ML VIAL IVP PRN ×3 (03:46→16:39)
[2020-03-10 05:37] LABS: BASOPHILS % (AUTO) 0.3 %; EOSINOPHILS % (AUTO) 0.2 %; HGB - HEMOGLOBIN 11.8 g/dL (14.0-18.0); LYMPHOCYTES # (AUTO) 0.9 10^3/uL (1.5-3.5); LYMPHOCYTES % (AUTO) 7.3 %; MEAN CORPUSCULAR HEMOGLOBIN 32.6 pg (27.0-31.0); MEAN CORPUSCULAR HGB CONC 33.6 g/dL (32.0-36.0); MEAN PLATELET VOLUME 9.7 fL (7.4-11.4); MONOCYTES # (AUTO) 0.6 10^3/uL (0.0-1.0); MONOCYTES % (AUTO) 5.3 %; NEUTROPHILS # (AUTO) 10.5 10^3/uL (1.5-6.6); NEUTROPHILS % (AUTO) 86.6 %; PLT - PLATELET COUNT 234 10^3/uL (130-450); RED BLOOD COUNT 3.62 10^6/uL (4.70-6.10); RED CELL DISTRIBUTION WIDTH 13.5 % (12.0-15.0); WHITE BLOOD COUNT 12.1 x10^3/uL (4.8-10.8)
[2020-03-10 05:56] LABS: ALBUMIN 3.4 g/dL (3.2-5.5); ALBUMIN/GLOBULIN RATIO 1.3 (1.0-2.2); CALCIUM 8.4 mg/dL (8.5-10.3); PHOSPHORUS 2.8 mg/dL (2.5-4.6)
[2020-03-10] MEDS: PANTOPRAZOLE 40 MG TABLET PO SCH (06:33)
[2020-03-10] MEDS: LEVOTHYROXINE 100 MCG TABLET PO SCH (06:34)
[2020-03-10] MEDS: metroNIDAZOLE 500 MG/100 ML 500 MG/100 ML BAG IV SCH (06:34)
--- NOTE | 2020-03-10 07:50 | PROVIDER PROGRESS NOTE ---
Subjective - Prog Note Date Prog Note Date: 03/10/20 - Subjective Subjective: Reports feeling well this morning. Denies any abdominal pain. He did have nausea and vomiting overnight. Denies any chest pain or dyspnea. Denies any history of syncope or near syncopal episodes. Telemetry overnight was unremarkable. Current Medications - Current Medications Current Medications: Active Medications Allopurinol (Allopurinol 100 Mg Tablet) 25 mg PO DAILY [facility] Last Admin: 03/09/20 10:25 Dose: 25 mg Documented by: Brimonidine Tartrate (Brimonidine 0.2% Ophth Drops 5 Ml) 1 drops EACHEYE BID [facility] Last Admin: 03/09/20 21:06 Dose: 1 drops Documented by: Docusate Sodium (Docusate Sodium 100 Mg Capsule) 100 mg PO BID [facility] Last Admin: 03/09/20 21:05 Dose: 100 mg Documented by: Dorzolamide/Timolol (Dorzolamide/Timolol Ophth Drops) 1 drops EACHEYE BID [facility] Last Admin: 03/09/20 21:06 Dose: 1 drops Documented by: Enoxaparin Sodium (Enoxaparin 40 Mg/0.4 Ml Syringe) 40 mg SUBQ DAILY [facility] Last Admin: 03/09/20 10:26 Dose: 40 mg Documented by: Hydromorphone HCl (Hydromorphone 0.5 Mg/0.5 Ml Syringe) 0.5 mg IVP Q2H PRN PRN Reason: PAIN Last Admin: 03/08/20 16:18 Dose: 0.5 mg Documented by: Ciprofloxacin (Cipro 400 Mg/200 Ml) 400 mg in 200 mls @ 200 mls/hr IV BID [facility] Last Infusion: 03/09/20 22:09 Dose: Infused Documented by: Potassium Chloride/Dextrose/Sod Cl () 1,000 mls @ 125 mls/hr IV .Q8H [facility] Last Infusion: 03/10/20 06:34 Dose: 0 mls/hr Documented by: Metronidazole (Flagyl 500 Mg/100 Ml) 500 mg in 100 mls @ 100 mls/hr IV Q8HR [facility] Last Admin: 03/10/20 06:34 Dose: 100 mls/hr Documented by: Latanoprost (Latanoprost 0.005% Ophth Drops) 1 drops EACHEYE QPM [facility] Last Admin: 03/09/20 21:06 Dose: 1 drops Documented by: Levothyroxine Sodium (Levothyroxine 125 Mcg Tablet) 125 mcg PO QDAC [facility] Lisinopril (Lisinopril 5 Mg Tablet) 5 mg PO DAILY [facility] Last Admin: 03/09/20 10:26 Dose: 5 mg Documented by: Methocarbamol (Methocarbamol 500 Mg Tablet) 500 mg PO Q6HR [facility] Last Admin: 03/10/20 06:33 Dose: 500 mg Documented by: Metoclopramide HCl (Metoclopramide 10 Mg/2 Ml Vial) 10 mg IVP Q6HR [facility] Last Admin: 03/10/20 06:34 Dose: 10 mg Documented by: Ondansetron HCl (Ondansetron 4 Mg/2 Ml Vial) 4 mg IVP Q6HR PRN PRN Reason: Nausea / Vomiting Last Admin: 03/10/20 03:46 Dose: 4 mg Documented by: Oxycodone HCl (Oxycodone 5 Mg Tablet) 5 mg PO Q4HR PRN PRN Reason: PAIN Pantoprazole Sodium (Pantoprazole 40 Mg Tablet) 40 mg PO QDAC [facility] Last Admin: 03/10/20 06:33 Dose: 40 mg Documented by: Polyethylene Glycol (Polyethylene Glycol 3350 17 Gm Packet) 17 gm PO BID [facility] Last Admin: 03/09/20 21:06 Dose: 17 gm Documented by: Sodium Chloride (Sodium Chloride Flush 0.9% 10 Ml Syringe) 20 ml IVP PRN PRN PRN Reason: After Blood Draw Brimonidine 0.2% Ophth Drops [Alphagan P 0.2% Ophth Drops] 1 drops EACHEYE BID 01/01/20 Dorzolamide HCl/Timolol Maleat [Dorzolamide-Timolol Eye Drops] 1 drops EACHEYE BID 01/01/20 Latanoprost 0.005% Ophth Drops [Xalatan Ophth Drops] 1 drops EACHEYE QPM 01/01/20 Ezetimibe [Zetia] 10 mg PO DAILY 01/06/20 Levothyroxine [Synthroid] 100 mcg PO QDAC 01/06/20 Lisinopril [Prinivil] 5 mg PO DAILY 01/06/20 allopurinoL [Zyloprim] 25 mg PO DAILY 03/08/20 Objective - Vital Signs/Intake & Output Reviewed Vital Signs: Yes Vital Signs: Vital Signs x48h Temp Pulse Resp BP Pulse Ox 03/10/20 03:40 36.3 C L 70 16 132/72 H 93 Intake & Output: Intake & Output 03/07/20 03/08/20 03/09/20 03/10/20 23:59 23:59 23:59 23:59 Intake Total 1800 5115 2262.5 Output Total 940 3400 710 Balance 860 1715 1552.5 - Objective General Appearance: positive: No acute distress, Alert Eyes Bilateral: positive: Normal inspection, Conjunctivae nml ENT: positive: ENT inspection nml Neck: positive: Nml inspection Respiratory: positive: No respiratory distress. negative: Wheezes, Rales Cardiovascular: positive: Regular rate & rhythm, No murmur. negative: Tachycardia, Systolic murmur Abdomen: positive: Tenderness (Minimal tenderness throughout the abdomen.), Abnm l bowel sounds (Hyperactive.), Other (Surgical incision noted. MATT drain is in place. No obvious erythema). negative: Guarding, Rebound Skin: positive: Warm, Dry Extremities: positive: Full ROM, No pedal edema Neurologic/Psychiatric: positive: Oriented x3 - Lab Results Fish Bones: 03/10/20 05:15 03/10/20 05:15 Other Labs: Lab Results x24hrs 03/10/20 03/10/20 03/10/20 Range/Units 05:15 05:15 05:15 WBC 12.1 H (4.8-10.8) x10^3/uL RBC 3.62 L (4.70-6.10) 10^6/uL Hgb 11.8 L (14.0-18.0) g/dL Hct 35.1 L (42.0-52.0) % MCV 97.0 H (80.0-94.0) fL MCH 32.6 H (27.0-31.0) pg MCHC 33.6 (32.0-36.0) g/dL RDW 13.5 (12.0-15.0) % Plt Count 234 (130-450) 10^3/uL MPV 9.7 (7.4-11.4) fL Neut # (Auto) 10.5 H (1.5-6.6) 10^3/uL Lymph # (Auto) 0.9 L (1.5-3.5) 10^3/uL [facility] # (Auto) 0.6 (0.0-1.0) 10^3/uL Eos # (Auto) 0.0 (0.0-0.7) 10^3/uL Baso # (Auto) 0.0 (0.0-0.1) 10^3/uL Absolute Nucleated RBC 0.00 x10^3/uL Nucleated RBC % 0.0 /100WBC Sodium 139 (135-145) mmol/L Potassium 4.1 (3.5-5.0) mmol/L Chloride 109 (101-111) mmol/L Carbon Dioxide 22 (21-32) mmol/L Anion Gap 8.0 (6-13) BUN 6 (6-20) mg/dL Creatinine 1.0 (0.6-1.2) mg/dL Estimated GFR (MDRD) 74 L (>89) Glucose 171 H (70-100) mg/dL Calcium 8.4 L (8.5-10.3) mg/dL Phosphorus 2.8 (2.5-4.6) mg/dL Magnesium (1.7-2.8) mg/dL Total Bilirubin 1.0 (0.2-1.0) mg/dL AST 22 (10-42) IU/L ALT 36 (10-60) IU/L Alkaline Phosphatase 81 (42-121) IU/L Troponin I High Sens (2.3-19.7) ng/L Total Protein 6.0 L (6.7-8.2) g/dL Albumin 3.4 (3.2-5.5) g/dL Globulin 2.6 (2.1-4.2) g/dL Albumin/Globulin Ratio 1.3 (1.0-2.2) TSH 9.12 H (0.34-5.60) uIU/mL 03/09/20 03/09/20 03/09/20 Range/Units 18:52 13:36 13:36 WBC (4.8-10.8) x10^3/uL RBC (4.70-6.10) 10^6/uL Hgb (14.0-18.0) g/dL Hct (42.0-52.0) % MCV (80.0-94.0) fL MCH (27.0-31.0) pg MCHC (32.0-36.0) g/dL RDW (12.0-15.0) % Plt Count (130-450) 10^3/uL MPV (7.4-11.4) fL Neut # (Auto) (1.5-6.6) 10^3/uL Lymph # (Auto) (1.5-3.5) 10^3/uL [facility] # (Auto) (0.0-1.0) 10^3/uL Eos # (Auto) (0.0-0.7) 10^3/uL Baso # (Auto) (0.0-0.1) 10^3/uL Absolute Nucleated RBC x10^3/uL Nucleated RBC % /100WBC Sodium (135-145) mmol/L Potassium (3.5-5.0) mmol/L Chloride (101-111) mmol/L Carbon Dioxide (21-32) mmol/L Anion Gap (6-13) BUN (6-20) mg/dL Creatinine (0.6-1.2) mg/dL Estimated GFR (MDRD) (>89) Glucose (70-100) mg/dL Calcium (8.5-10.3) mg/dL Phosphorus (2.5-4.6) mg/dL Magnesium 1.6 L (1.7-2.8) mg/dL Total Bilirubin (0.2-1.0) mg/dL AST (10-42) IU/L ALT (10-60) IU/L Alkaline Phosphatase (42-121) IU/L Troponin I High Sens 9.5 8.4 (2.3-19.7) ng/L Total Protein (6.7-8.2) g/dL Albumin (3.2-5.5) g/dL Globulin (2.1-4.2) g/dL Albumin/Globulin Ratio (1.0-2.2) TSH (0.34-5.60) uIU/mL ABX Reporting Has patient been on IV antibiotics over the past 48 hours?: Yes Assessment/Plan - Problem List (1) Second degree AV block, Mobitz type II Impression: He had a brief episode of second-degree AV block, Mobitz type II yesterday afternoon. This was less than 30 seconds and he was asymptomatic. Since then, he has been in a first-degree heart block on telemetry. He has no prior history of syncope or presyncope. Echocardiogram obtained last month was unremarkable. Given he is on timolol for glaucoma, I did discuss with cardiology given this can cause systemic adverse effects. Cardiology at [facility] felt that given this was a brief episode and he was not symptomatic, that atenolol can be safely continued for the time being. They did recommend if the patient has concern regarding the second-degree AV block, the patient may benefit from an outpatient Zio patch. I discussed this with the patient who will follow up with his primary care provider. By treating his hypothyroidism as well, this may al so prevent further episodes of the second-degree AV block. He should not be on any AV lito blocking agents in the future and this was discussed with the patient as well. This includes metoprolol, diltiazem, verapamil, digoxin. At this point in time, he can be discharged home from a medical perspective. (2) Hypothyroidism Impression: His TSH was elevated at nearly 10. I have increased his Synthroid to 125 mcg and he should be discharged on this increased dose. He will need a repeat TSH in 4 to 6 weeks. (3) Glaucoma Impression: Stable. After discussion with cardiology, we will continue his timolol. (4) HTN (hypertension) Impression: His blood pressure has been elevated with systolic in the 130s. We will continue his current dose of lisinopril. He will need outpatient follow-up with primary care provider. (5) Status post reversal of ileostomy Impression: Management as per general surgery.
[2020-03-10] MEDS ORDERED: DORZOLAMIDE 2% OPHTH DROPS EACHEYE SCH (09:00)
[2020-03-10] MEDS: ENOXAPARIN 40 MG/0.4 ML SYRINGE SUBQ SCH (09:01)
[2020-03-10] MEDS: CIPROFLOXACIN 400 MG/200 ML 400 MG/200 ML BAG IV SCH (09:01)
[2020-03-10] MEDS: allopurinoL 100 MG TABLET PO SCH (09:02)
[2020-03-10] MEDS: BRIMONIDINE 0.2% OPHTH DROPS 5 ML EACHEYE SCH ×2 (09:03→22:05)
[2020-03-10] MEDS: DOCUSATE SODIUM 100 MG CAPSULE PO SCH ×2 (09:04→22:07)
[2020-03-10] MEDS: polyethylene glycoL 3350 17 GM PACKET PO SCH ×2 (09:04→22:08)
[2020-03-10] MEDS: lisinopriL 5 MG TABLET PO SCH (09:06)
--- NOTE | 2020-03-10 11:19 | PROVIDER PROGRESS NOTE ---
Progress Note Subjective: Post Operative day #2 status post below listed procedure. Positive bowel function. No nausea. No vomiting. Liquid stool with flatus. Voiding on own. No chest pain. Appreciate cardiology/hospitalist work-up. Pre-Op Diagnosis: History of loop ileostomy, history of peritonitis, status post right colectomy and anterior resection Procedure Performed: 1. Ileostomy takedown 2. Small bowel resection 3. Adhesiolysis 4. Repair of parastomal hernia 5. Drain placement 6. Tap block Objective: Hemodynamically acceptable General Appearance: positive: No acute distress Eyes Bilateral: positive: Normal inspection ENT: positive: ENT inspection nml Neck: positive: Nml inspection Respiratory: positive: Chest non-tender, No respiratory distress, Breath sounds nml. negative: Wheezes, Rales, Rhonchi Cardiovascular: positive: Regular rate & rhythm Abdomen: positive: No distention, Other. negative: Guarding, Rebound Extremities: positive: Non-tender, Full ROM, Nml appearance Neurologic/Psychiatric: positive: Oriented x3, CN's nml (2-12) Abdomen appropriately tender, historic stoma site dressed. MATT serosanguineous. Impression/Plan: Postoperative day #2 status post above listed procedure. Positive resumption of bowel function. Will advance diet and likely discharge in the next 24 hours. (1) GI - DC IVF, bowel regimen, advance diet as tolerated. GI ppx. Opiate sparring analgesia. (2) SURGERY - Continue MATT. Continue daily packing strips to historic ileostomy site. Possibly discharge with MATT. (3) Renal/Lytes - continue IVF. Renal indices within normal limits. History of prerenal acute renal failure secondary to high ileostomy output. Appears to be at baseline. Anticipate this will resolve now that the patient is restored for intestinal continuity. (4) Respiratory - O2 as necessary. Continue IS. (5) Heme - Will continue with DVT ppx. H/H stable. (6) Cardiovascular - HD acceptable. Normal sinus rhythm EKG, troponin Within normal limits, continue telemetry, appreciate hospitalist consult. (7) Neuro - Opiate sparring analgesia. Antispasmodics with Robaxin. Will avoid Toradol given a history of renal failure. (8) Immune/Infectious Disease - Discontinue antibiotics. (9) DISPOSITION - discharge within the next 24 hours with home care.
[2020-03-10] MEDS ORDERED: SODIUM CHLORIDE 0.9% 500 ML IV ONE (18:39)
[2020-03-10] MEDS ORDERED: TAMSULOSIN 0.4 MG CAPSULE PO ONE (19:00)
[2020-03-10] MEDS: LATANOPROST 0.005% OPHTH DROPS EACHEYE SCH (22:05)
[2020-03-10] MEDS: DORZOLAMIDE/TIMOLOL OPHTH DROPS EACHEYE SCH (22:05)
[2020-03-11] MEDS: SODIUM CHLORIDE FLUSH 0.9% 10 ML SYRINGE IVP PRN (00:07)
[2020-03-11] MEDS: methocarbamoL 500 MG TABLET PO SCH ×5 (00:07→23:38)
[2020-03-11] MEDS: METOCLOPRAMIDE 10 MG/2 ML VIAL IVP SCH ×3 (00:07→12:03)
[2020-03-11] MEDS: D5NS W/20 MEQ KCL 1,000 ML IV SCH ×4 (01:58→23:10)
[2020-03-11 05:35] LABS: BASOPHILS % (AUTO) 0.3 %; EOSINOPHILS # (AUTO) 0.3 10^3/uL (0.0-0.7); EOSINOPHILS % (AUTO) 2.7 %; HGB - HEMOGLOBIN 10.2 g/dL (14.0-18.0); LYMPHOCYTES # (AUTO) 1.5 10^3/uL (1.5-3.5); LYMPHOCYTES % (AUTO) 13.8 %; MEAN CORPUSCULAR HEMOGLOBIN 32.4 pg (27.0-31.0); MEAN CORPUSCULAR HGB CONC 33.4 g/dL (32.0-36.0); MEAN CORPUSCULAR VOLUME 96.8 fL (80.0-94.0); MEAN PLATELET VOLUME 9.8 fL (7.4-11.4); MONOCYTES # (AUTO) 0.7 10^3/uL (0.0-1.0); MONOCYTES % (AUTO) 6.8 %; NEUTROPHILS # (AUTO) 8.1 10^3/uL (1.5-6.6); PLT - PLATELET COUNT 239 10^3/uL (130-450); RED BLOOD COUNT 3.15 10^6/uL (4.70-6.10); RED CELL DISTRIBUTION WIDTH 13.9 % (12.0-15.0); WHITE BLOOD COUNT 10.7 x10^3/uL (4.8-10.8)
[2020-03-11 05:45] LABS: ALBUMIN 3.1 g/dL (3.2-5.5); ALBUMIN/GLOBULIN RATIO 1.3 (1.0-2.2); BILIRUBIN,TOTAL 0.7 mg/dL (0.2-1.0); CALCIUM 7.9 mg/dL (8.5-10.3); TOTAL PROTEIN 5.5 g/dL (6.7-8.2)
[2020-03-11] MEDS: PANTOPRAZOLE 40 MG TABLET PO SCH (06:05)
[2020-03-11] MEDS: LEVOTHYROXINE 125 MCG TABLET PO SCH (06:05)
[2020-03-11] MEDS: TAMSULOSIN 0.4 MG CAPSULE PO SCH (08:25)
[2020-03-11] MEDS: ENOXAPARIN 40 MG/0.4 ML SYRINGE SUBQ SCH (08:25)
[2020-03-11] MEDS: lisinopriL 5 MG TABLET PO SCH (08:26)
[2020-03-11] MEDS: allopurinoL 100 MG TABLET PO SCH (08:26)
[2020-03-11] MEDS: BRIMONIDINE 0.2% OPHTH DROPS 5 ML EACHEYE SCH ×2 (08:27→20:57)
[2020-03-11] MEDS: DOCUSATE SODIUM 100 MG CAPSULE PO SCH ×2 (08:27→20:51)
[2020-03-11] MEDS: polyethylene glycoL 3350 17 GM PACKET PO SCH ×2 (08:28→20:51)
[2020-03-11] MEDS: DORZOLAMIDE/TIMOLOL OPHTH DROPS EACHEYE SCH ×2 (08:28→21:00)
--- NOTE | 2020-03-11 08:40 | XRAY Report ---
PROCEDURE: Abdomen 1 View X-Ray INDICATIONS: ileus post op TECHNIQUE: 1 view of the abdomen were acquired. COMPARISON: Prior CT scanning 02/13/2020 FINDINGS: Surgical changes and devices: Surgical drain left lower quadrant.. Bowel: No pneumoperitoneum. The bowel gas pattern is mildly abnormal with a small bowel gas promine nce pattern consistent with postoperative ileus. No free air seen.. Soft tissues: No masses; visualized solid organ contours appear normal in size. No suspicious abdom inal calcifications. Bones: No suspicious bony abnormalities. IMPRESSION: Mild postoperative ileus. No colonic distention is found. Reviewed by: Maciej Roach MD on 03/11/2020 8:39 AM PST Approved by: Maciej Roach MD on 03/11/2020 8:39 AM PST Station ID: [id number]
[2020-03-11] MEDS: POTASSIUM CHLOR 10 MEQ/100 ML 10 MEQ/100 ML BAG IV SCH ×3 (11:18→13:01)
[2020-03-11] MEDS: oxyCODONE 5 MG TABLET PO PRN ×2 (13:00→23:15)
--- NOTE | 2020-03-11 14:21 | PROVIDER PROGRESS NOTE ---
Progress Note Subjective: Post Operative day #3 status post below listed procedure. Positive bowel function. Patient with positive nausea and emesis overnight. He also had urinary retention. Ultimately did not require straight cath. Patient voided last night 300 cc. Was resumed on IV fluids after IV bolus. He was also downgraded to diet of clear liquids with no further episodes of nausea or emesis. Pain is overall controlled. Pre-Op Diagnosis: History of loop ileostomy, history of peritonitis, status post right colectomy and anterior resection Procedure Performed: 1. Ileostomy takedown 2. Small bowel resection 3. Adhesiolysis 4. Repair of parastomal hernia 5. Drain placement 6. Tap block Objective: Hemodynamically acceptable General Appearance: positive: No acute distress Eyes Bilateral: positive: Normal inspection ENT: positive: ENT inspection nml Neck: positive: Nml inspection Respiratory: positive: Chest non-tender, No respiratory distress, Breath sounds nml. negative: Wheezes, Rales, Rhonchi Cardiovascular: positive: Regular rate & rhythm Abdomen: positive: No distention, Other. negative: Guarding, Rebound Extremities: positive: Non-tender, Full ROM, Nml appearance Neurologic/Psychiatric: positive: Oriented x3, CN's nml (2-12) Abdomen appropriately tender, historic stoma site dressed; Repacked with iodoform half-inch gauze after patient received oxycodone. The MATT bulb was noted for large clot and ultimately was replaced sterilely with new bulb with serous drainage. Impression/Plan: Postoperative day #3 status post above listed procedure. Positive resumption of bowel function, however mild postoperative ileus. Although had anticipated discharge today will need another day to slowly advance diet. (1) GI - Continue IVF, bowel regimen, advance diet as tolerated. GI ppx. Opiate sparring analgesia. (2) SURGERY - Continue MATT. Continue daily packing strips to historic ileostomy site. Possibly discharge with MATT. (3) Renal/Lytes - continue IVF. Renal indices within normal limits. History of prerenal acute renal failure secondary to high ileostomy output. Appears to be at baseline. Anticipate this will resolve now that the patient is restored for intestinal continuity. (4) Respiratory - O2 as necessary. Continue IS. (5) Heme - Will continue with DVT ppx. H/H stable. (6) Cardiovascular - HD acceptable. Normal sinus rhythm EKG, troponin Within normal limits, continue telemetry, appreciate hospitalist consult. (7) Neuro - Opiate sparring analgesia. Antispasmodics with Robaxin. Will avoid Toradol given a history of renal failure. (8) DISPOSITION - discharge within the next 24 hours with home care.
[2020-03-11 14:48] LABS: MAGNESIUM 1.7 mg/dL (1.7-2.8); PHOSPHORUS 2.2 mg/dL (2.5-4.6)
--- NOTE | 2020-03-11 16:12 | PROVIDER PROGRESS NOTE ---
Progress Note Review of telemetry reveals that the patient has remained in a sinus rhythm with a first-degree AV block. There have been no further episodes of second-degree AV block, type II. He has been resumed on his timolol and his Synthroid dose has been increased. At this point in time, medicine will sign off. Once again, recommend discharging the patient on Synthroid 125 mcg daily. He will need a repeat TSH in 4 to 6 weeks. He should follow up with his primary care provider on discharge and they can consider an outpatient Holter monitor. Please write on his discharge instructions that he should not be on any AV lito blocking agents in the future such as metoprolol, diltiazem, verapamil, digoxin. Thank you for this consult. If any questions arise during this hospitalization. Please feel free to contact us again.
[2020-03-11] MEDS: METOCLOPRAMIDE 10 MG TABLET PO SCH ×2 (16:35→21:00)
[2020-03-11] MEDS ORDERED: MAGNESIUM SULFATE 2 GRAM 2 GM/50 ML BAG IV ONE (18:49)
[2020-03-11] MEDS ORDERED: NEUTRA-PHOS 250 MG TABLET PO SCH (19:00)
[2020-03-11] MEDS: LATANOPROST 0.005% OPHTH DROPS EACHEYE SCH (21:01)
[2020-03-12] MEDS ORDERED: LORazepam 2 MG/ML VIAL IVP PRN (00:07)
[2020-03-12] MEDS ORDERED: ENALAPRILAT 1.25 MG/ML VIAL IVP PRN (00:08)
[2020-03-12] MEDS: SODIUM CHLORIDE FLUSH 0.9% 10 ML SYRINGE IVP PRN (00:44)
[2020-03-12] MEDS: METOCLOPRAMIDE 10 MG TABLET PO SCH ×3 (06:06→16:42)
[2020-03-12] MEDS: methocarbamoL 500 MG TABLET PO SCH ×3 (06:06→17:04)
[2020-03-12] MEDS: LEVOTHYROXINE 125 MCG TABLET PO SCH (06:06)
[2020-03-12] MEDS: PANTOPRAZOLE 40 MG TABLET PO SCH (06:07)
[2020-03-12 06:28] LABS: BASOPHILS # (AUTO) 0.1 10^3/uL (0.0-0.1); BASOPHILS % (AUTO) 0.6 %; EOSINOPHILS # (AUTO) 0.8 10^3/uL (0.0-0.7); EOSINOPHILS % (AUTO) 8.8 %; HGB - HEMOGLOBIN 10.2 g/dL (14.0-18.0); LYMPHOCYTES # (AUTO) 1.5 10^3/uL (1.5-3.5); LYMPHOCYTES % (AUTO) 17.8 %; MEAN CORPUSCULAR HEMOGLOBIN 31.9 pg (27.0-31.0); MEAN CORPUSCULAR HGB CONC 32.1 g/dL (32.0-36.0); MEAN CORPUSCULAR VOLUME 99.4 fL (80.0-94.0); MEAN PLATELET VOLUME 9.5 fL (7.4-11.4); MONOCYTES # (AUTO) 0.7 10^3/uL (0.0-1.0); NEUTROPHILS # (AUTO) 5.6 10^3/uL (1.5-6.6); NEUTROPHILS % (AUTO) 64.6 %; PLT - PLATELET COUNT 245 10^3/uL (130-450); RED CELL DISTRIBUTION WIDTH 13.9 % (12.0-15.0); WHITE BLOOD COUNT 8.7 x10^3/uL (4.8-10.8)
[2020-03-12 06:37] LABS: ALBUMIN/GLOBULIN RATIO 1.3 (1.0-2.2); BILIRUBIN,TOTAL 0.8 mg/dL (0.2-1.0); CALCIUM 7.9 mg/dL (8.5-10.3); CREATININE 0.9 mg/dL (0.6-1.2); TOTAL PROTEIN 5.3 g/dL (6.7-8.2)
[2020-03-12] MEDS: allopurinoL 100 MG TABLET PO SCH (08:05)
[2020-03-12] MEDS: lisinopriL 5 MG TABLET PO SCH (08:05)
[2020-03-12] MEDS: TAMSULOSIN 0.4 MG CAPSULE PO SCH (08:05)
[2020-03-12] MEDS: ENOXAPARIN 40 MG/0.4 ML SYRINGE SUBQ SCH (08:07)
[2020-03-12] MEDS: DORZOLAMIDE/TIMOLOL OPHTH DROPS EACHEYE SCH (08:07)
[2020-03-12] MEDS: DOCUSATE SODIUM 100 MG CAPSULE PO SCH (08:08)
[2020-03-12] MEDS: polyethylene glycoL 3350 17 GM PACKET PO SCH (08:08)
[2020-03-12] MEDS: BRIMONIDINE 0.2% OPHTH DROPS 5 ML EACHEYE SCH (08:10)
--- NOTE | 2020-03-12 18:00 | Discharge Plan ---
Discharge Plan Problem Reviewed?: Yes Disposition: Home, Self Care Condition: Good Prescriptions: oxyCODONE [Roxicodone] 5 mg PO Q4HR PRN #24 tablet PRN Reason: Pain methocarbamoL [Robaxin] 500 mg PO Q6HR PRN #50 tablet PRN Reason: Spasms Docusate Sodium 100Mg Capsule [Colace 100Mg Capsule] 100 mg PO BID #60 capsule Tamsulosin [Flomax] 0.4 mg PO DAILY #30 capsule polyethylene glycoL 3350 [Miralax] 17 gm PO DAILY #30 packet Pantoprazole [Protonix] 40 mg PO QDAC #30 tablet Metoclopramide [Reglan] 10 mg PO ACHS #28 tablet Levothyroxine [Synthroid] 125 mcg PO QDAC #30 tablet Diet: Regular Activity Restrictions: No Restrictions Shower Restrictions: Yes (no submersive bathing) Driving Restrictions: Yes (not while taking narcotics) Instruction Topics: Bowel Surg Recovery Health Concerns: 1. Follow-up with cardiology as outpatient with regard to his hypertensive management and his ophthalmic regimen 2. Patient needs to follow-up with primary care as it relates to Synthroid and hypothyroidism and TSH level during hospital stay 3. Patient needs a follow-up with surgical services for drain removal, and packing changes for which they need to be instructed. 4. Patient in the meantime needs to continue with drain and call with any concerning features are worrisome symptoms Plan of Treatment: 1. Follow-up with cardiology as outpatient with regard to his hypertensive management and his ophthalmic regimen 2. Patient needs to follow-up with primary care as it relates to Synthroid and hypothyroidism and TSH level during hospital stay 3. Patient needs a follow-up with surgical services for drain removal, and packing changes for which they need to be instructed. 4. Patient in the meantime needs to continue with drain and call with any concerning features are worrisome symptoms Care Goals: 1. At the time of discharge patient to maintain PICC line which will be discharged at surgical clinic on Sunday 2. At the time of discharge patient will have wound repacked to be changed at clinic on March 15 3. The time of discharge patient will be educated as far as drain care Additional Instructions or Follow Up instructions: DISCHARGE INSTRUCTIONS TEMPLATE: No heavy lifting, pushing, or pulling. Stairs are allowed, no strenuous/exertional activities. 5-10lbs weight carrying limit (i.e. gallon of milk) If provided, abdominal binder while out of bed and while ambulating. Call or proceed to clinic/ER for fevers, severe pain, nausea, vomiting, inability to pass flatus/stool, bleeding, wound redness/discharge, weakness, excessively loose stool/diarrhea, or for any other reasonably worrisome symptom or concern. Soft diet, no raw vegetables, avoid high fiber foods. Colace 100mg by mouth twice to three times daily while taking narcotic pain medication. If no bowel movement in 24-48hr, may take 17g Miralax in 8oz water twice daily until bowel movement. May shower, no submersive bathing. Follow up in clinic in 2-4 weeks for wound check and staple removal. No driving while taking narcotic pain medications. Follow up with primary care provider and/or medical subspecialist following discharge as well. Patient not allowed to drive self today or within 24 hours of surgery. No Smoking: If you smoke, Please STOP! Call for help. Follow-up with: Wolfgang Bailey MD [Provider Admit Priv/Credential] -
--- NOTE | 2020-03-12 18:05 | DISCHARGE SUMMARY ---
"Discharge Summary Admit Date: 03/08/20 Discharge Date: 03/12/20 Discharging Provider: Leo Code Status: Attempt Resuscitation Condition at Discharge: Good Discharge Disposition: 01 Home, Self Care - DIAGNOSES Admission Diagnoses: (1) Second degree AV block, Mobitz type II (2) Hypothyroidism (3) Glaucoma (4) HTN (hypertension) (5) Status post reversal of ileostomy (6) Hx colectomy (7) Hx of sepsis (8) Chronic renal insufficiency Discharge Diagnoses with Status of Each Condition: (1) Second degree AV block, Mobitz type II - STABLE (2) Hypothyroidism - STABLE/TREATED (3) Glaucoma - STABLE/TREATED (4) HTN (hypertension) - STABLE/TREATED (5) Status post reversal of ileostomy - RESOLVED (6) Hx colectomy - RESOLVED (7) Hx of sepsis - RESOLVED (8) Chronic renal insufficiency - STABLE - HPI History of Present Illness: 69-year-old male presenting with SIRS/sepsis secondary to large intra-abdominal abscess initially thought secondary to fistulizing enteritis however operative intervention revealed a large phlegmon with multiple bowel loops involved. Ultimately the patient necessitated right colectomy and left colectomy together with proximal loop ileostomy for what was ultimately a complicated appendicitis on final pathology although intraoperatively the associated colitis, mesenteric adenitis/panniculitis, and multiple fistulous communications were concerning for either malignancy and/or inflammatory bowel disease. Patient had undergone laparoscopic assisted intervention with mini laparotomy as well. Diverting loop ileostomy was also performed. Patient was maintained on antibiotics. Postoperatively he necessitated fluid resuscitation on a regular basis for dehydration. He presents today for ileostomy takedown. He has undergone preoperative imaging which was without any concerns for anastomotic compromise following a preoperative colonoscopy that showed an intact colocolostomy/coloproctostomy as well as an intact ileotransverse proctostomy. - CONSULTS | PROCEDURES Consultations: HOSPITALIST Procedures: Pre-Op Diagnosis: History of loop ileostomy, history of peritonitis, status post right colect Procedure Performed: 1. Ileostomy takedown 2. Small bowel resection 3. Adhesiolysis 4. Repair of parastomal hernia 5. Drain placement 6. Tap block Post Op Diagnosis: Same, viable enteroenterostomy, abdominal adhesions. 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 Underwent laparoscopic assisted/mini laparotomy with left and right colectomy's. Status post proximal diverting loop ileostomy. Postoperative course notable for prerenal acute renal failure secondary to dehydration for which the patient has been undergoing regular fluid boluses scheduled. Status post colonoscopy and preoperative imaging with no concern for contraindication to proceeding with loop ileostomy takedown. Risk and benefit discussed questions answered informed consent obtained. Plan going forward is as follows: 1. Small bowel resection, ileostomy takedown, parastomal hernia repair, tap block per anesthesia 2. Local wound care to ileostomy takedown site explained to the patient 3. Await bowel function with hospital admission for pain control and fluid resuscitation 4. Patient will need interval colonoscopy following prep for formal screening colonoscopy Impression CT abdomen pelvis: Ileostomy right mid abdomen, near the midline. Colon Traverses and is well visualized by administration of rectal contrast. The colon and small bowel is well visualized for surgical planning. Peritoneum and bowel: Bowel loops demonstrate normal wall thickness and caliber. No free fluid or air. There is a right mid abdomen ostomy site, morphologically and ileostomy; the colon more distally appears normal. No retroperitoneal or mesenteric adenopathy. No abscesses or other fluid collections. Patient admitted following operative intervention. Patient underwent operative intervention as listed in the electronic medical record. Tolerated procedure well for which there was no complication. Postoperatively the patient was managed for postoperative analgesia and resumption of bowel function. Patient had successfully passed trial of void. Single episode of urinary retention spontaneous resolved and patient was started on Flomax. Patient had single episode of emesis for which diet was slowly advanced after regressed to this clear liquids. Thereafter tolerated oral intake without any complication. Denied further nausea denied vomiting. Wound packing was performed daily to the patient's historic ileostomy site without complication. He was ultimately discharged with local wound care and Yefri drain. He did indeed show arrhythmia on telemetry for which hospitalist was consulted. Review of telemetry reveals that the patient has remained in a sinus rhythm with a first-degree AV block. There have been no further episodes of second-degree AV block, type II. He has been resumed on his timolol and his Synthroid dose has been increased. At this point in time, medicine will sign off. Once again, recommend discharging the patient on Synthroid 125 mcg daily. He will need a repeat TSH in 4 to 6 weeks. He should follow up with his primary care provider on discharge and they can consider an outpatient Holter monitor. Please write on his discharge instructions that he should not be on any AV lito blocking agents in the future such as metoprolol, diltiazem, verapamil, digoxin. Patient was afebrile hemodynamically acceptable with normalized white count and no leukocytosis. He was planned for follow-up with surgical clinic. Drain was to be maintained as well as daily packing strips to the ileostomy takedown site with iodoform. He was to follow-up with primary care as well as cardiology. DISCHARGE INSTRUCTIONS TEMPLATE: No heavy lifting, pushing, or pulling. Stairs are allowed, no st renuous/exertional activities. 5-10lbs weight carrying limit (i.e. gallon of milk) If provided, abdominal binder while out of bed and while ambulating. Call or proceed to clinic/ER for fevers, severe pain, nausea, vomiting, inability to pass flatus/stool, bleeding, wound redness/discharge, weakness, excessively loose stool/diarrhea, or for any other reasonably worrisome symptom or concern. Soft diet, no raw vegetables, avoid high fiber foods. Colace 100mg by mouth twice to three times daily while taking narcotic pain medication. If no bowel movement in 24-48hr, may take 17g Miralax in 8oz water twice daily until bowel movement. May shower, no submersive bathing. Follow up in clinic in 2-4 weeks for wound check and staple removal. No driving while taking narcotic pain medications. Follow up with primary care provider and/or medical subspecialist following discharge as well. Patient not allowed to drive self today or within 24 hours of surgery. - ALLERGIES Allergies/Adverse Reactions: Allergies Allergy/AdvReac Type Severity Reaction Status Date / Time [id number] Reductase AdvReac Intermediate Cramps Verified 01/15/20 14:35 Inhibitor - MEDICATIONS Home Medications: Ambulatory Orders Medication Instructions Recorded Confirmed Brimonidine 0.2% Ophth Drops 1 drops EACHEYE BID 01/01/20 03/08/20 [Alphagan P 0.2% Ophth Drops] Dorzolamide HCl/Timolol Maleat 1 drops EACHEYE BID 01/01/20 03/08/20 [Dorzolamide-Timolol Eye Drops] Latanoprost 0.005% Ophth Drops 1 drops EACHEYE QPM 01/01/20 03/08/20 [Xalatan Ophth Drops] Ezetimibe [Zetia] 10 mg PO DAILY 01/06/20 03/08/20 Lisinopril [Prinivil] 5 mg PO DAILY 01/06/20 03/08/20 allopurinoL [Zyloprim] 25 mg PO DAILY 03/08/20 03/08/20 Docusate Sodium 100Mg Capsule 100 mg PO BID #60 capsule 03/12/20 [Colace 100Mg Capsule] Dorzolamide/Timolol Ophth Soln 1 drops EACHEYE BID bottle 03/12/20 [Cosopt] Levothyroxine [Synthroid] 125 mcg PO QDAC #30 tablet 03/12/20 Metoclopramide [Reglan] 10 mg PO ACHS #28 tablet 03/12/20 Pantoprazole [Protonix] 40 mg PO QDAC #30 tablet 03/12/20 Tamsulosin [Flomax] 0.4 mg PO DAILY #30 capsule 03/12/20 methocarbamoL [Robaxin] 500 mg PO Q6HR PRN #50 tablet 03/12/20 oxyCODONE [Roxicodone] 5 mg PO Q4HR PRN #24 tablet 03/12/20 polyethylene glycoL 3350 [Miralax] 17 gm PO DAILY #30 packet 03/12/20 - PHYSICAL EXAM AT DISCHARGE General Appearance: positive: No acute distress, Alert Eyes Bilateral: positive: Normal inspection, PERRL, EOMI ENT: positive: ENT inspection nml Neck: positive: Nml inspection Respiratory: positive: Chest non-tender, No respiratory distress, Breath sounds nml. negative: Wheezes, Rales, Rhonchi Cardiovascular: positive: Regular rate & rhythm Abdomen: positive: Non-tender, No distention, Other (Wound clean and dry and intact with packing strip in place. Drain serosanguineous. Replaced for MATT bulb prior to discharge.) Skin: positive: Color nml Extremities: positive: Non-tender, Full ROM, Nml appearance Neurologic/Psychiatric: positive: Oriented x3, CN's nml (2-12), Motor nml, Sensation nml, Mood/affect nml - LABS Result Diagrams: 03/12/20 06:20 03/12/20 06:20 - SEPSIS Current Stage of Sepsis: Ruled out - FOLLOW UP Follow Up: 1. Patient to follow-up with cardiology as an outpatient 2. Patient to follow-up with primary care as an outpatient to assure Synthroid appropriately dosed based on inpatient hospitalist recommendation. 3. Patient to follow-up with surgical clinic for removal of MATT as well as wound packing education. - TIME SPENT Time Spent in Discharge (Minutes): 30"
[2020-03-12 18:26] VITALS: BP 181/94
== END 2020-03-12 18:18 | disposition home or self-care (01) | DRG 330 ==
LOC: MS2 08:26 → ICU 03-10 14:39 → MS2 03-10 14:42
PROVIDERS: ADMIT Surgery; ATTEND Surgery
PROC: 0WQF0ZZ Repair Abdominal Wall, Open Approach (ICD-10-PCS; 2020-03-08)
PROC: 0DBB0ZZ Excision of Ileum, Open Approach (ICD-10-PCS; principal; 2020-03-08 09:30)
DX: Z43.2 Encounter for attention to ileostomy (principal); K56.7 Ileus, unspecified; I44.1 Atrioventricular block, second degree; I12.9 Hypertensive chronic kidney disease with stage 1 through stage 4 chronic kidney disease, or unspecified chronic kidney disease; N18.9 Chronic kidney disease, unspecified; G47.30 Sleep apnea, unspecified; E03.9 Hypothyroidism, unspecified; M10.9 Gout, unspecified; R33.9 Retention of urine, unspecified; H40.9 Unspecified glaucoma; H54.7 Unspecified visual loss; H91.90 Unspecified hearing loss, unspecified ear; Z79.82 Long term (current) use of aspirin; Z79.899 Other long term (current) drug therapy
CPT/HCPCS: 36415; 74018; 80053; 83735; 84100; 84443; 84484; 85025; 93005; A9270; J0131; J0690; J1170; J1650; J2060; J2765; J7120

== ENCOUNTER 2020-10-01 08:57 | Outpatient (CLI) | payer MEDICARE ==
[2020-10-01 09:39] LABS: CALCIUM 9.1 mg/dL (8.5-10.3); CREATININE 1.2 mg/dL (0.6-1.2); POTASSIUM 4.5 mmol/L (3.5-5.0)
== END 2020-10-01 08:58 | disposition home or self-care (01) ==
LOC: LAB 08:57
PROVIDERS: ATTEND Nurse Practitioner
DX: E03.9 Hypothyroidism, unspecified (principal)
CPT/HCPCS: 36415; 80048; 84443